=== PATIENT | male | born 1940 | race Caucasian/White ===

== ENCOUNTER → 2018-02-03 08:18 | Outpatient (CLI) | payer MEDICARE, OTHER, SELFPAY ==
--- NOTE | 2018-02-03 08:38 | XR_ITS ---
XR cervical spine 5V COMPARISON: None HISTORY: Generalized neck pain TECHNIQUE: AP lateral and oblique views and odontoid view FINDINGS: There is normal curvature and alignment. C1-C7 appear intact. There is mild disc space narrowing at C5-6 and C6-7 levels. There is mild to moderate neural foraminal narrowing at the C5-6 and C6-7 levels bilaterally secondary to spurring of the uncinate joints. The prevertebral soft tissues are normal and the odontoid is normal. IMPRESSION: Mild degenerative disc disease C5-6 and C6-7 with mild to moderate bilateral neural foraminal narrowing at these levels
[2018-02-03 09:49] LABS: Alanine Aminotransferase 17 U/L (12-78); Albumin Level 3.9 gm/dL (3.4-5.0); Albumin/Globulin Ratio 1.3 (1.1-1.8); Alkaline Phosphatase 52 U/L (46-116); Anion Gap 13.4 mEq/L (5-15); Aspartate Amino Transferase 12 U/L (15-37); Bilirubin,Total 0.6 mg/dL (0.2-1.0); Blood Urea Nitrogen 18 mg/dL (7-18); Calcium 9.4 mg/dL (8.5-10.1); Carbon Dioxide 28 mmol/L (21.0-32.0); Chloride 107 mmol/L (98-107); Chol/HDL Ratio 2.7 (1-3.5); Cholesterol 127 mg/dL (140-200); Creatinine,Serum 1.32 mg/dL (0.70-1.30); Estimated Glomerular Filt Rate 53 ml/min (>60); Free T4 (Free Thyroxine) 1.13 ng/dl (0.76-1.46); GFR (African American) 64 ML/MIN (>60); Globulin 2.9 gm/dl (1.3-3.2); Glucose 102 mg/dL (74-106); HDL Cholesterol 47 mg/dL (27-67); LDL Cholesterol 71 mg/dL (0-130); Potassium 4.4 mmoL/L (3.5-5.1); Sodium 144 mmol/L (136-145); Thyroid Stimulating Hormone 1.13 uIU/ml (0.358-3.740); Total Protein,Serum 6.8 gm/dL (6.4-8.2); Triglycerides 44 mg/dL (30-200); VLDL Cholesterol 9 mg/dL (0-40)
[2018-02-04 06:41] LABS: Creatinine, Urine 91.7 mg/dL (Not Estab.); Microalbumin, Urine <3.0 ug/mL (Not Estab.)
== END ==
PROVIDERS: PCP Family Medicine; Visit Provider Family Medicine
DX: E78.5 Hyperlipidemia, unspecified (principal); E03.9 Hypothyroidism, unspecified; I10 Essential (primary) hypertension; M53.82 Other specified dorsopathies, cervical region
CPT/HCPCS: 36415; 72050; 80053; 80061; 82043; 82570; 84439; 84443

== ENCOUNTER → 2018-02-15 13:33 | Outpatient (CLI) | payer MEDICARE, OTHER, SELFPAY ==
--- NOTE | 2018-02-15 13:38 | CA_ITS ---
PROCEDURE: 2-D M-mode and color Doppler study INDICATIONS FOR THE TEST: Chest pain COPD Heart Murmur Tobacco Smoking Palpitations Fatigue Syncope Edema Hypertension + Diabetes Mellitus Rheumatic Fever SOB+MCGOWAN Obesity Hyperlipidemia+ Family History HD Additional History DIZZINESS,CAD, CABG, STENTS PATIENT INFORMATION HEIGHT:68 WEIGHT:206 GENDER: Male B/P:129/62 2-D/M-MODE INTERPRETATION: 2-D MEASUREMENTS OBSERVED VALUES IN CMS Right Ventricular Dimension (RVDd) 3.1 Interventricular Septum (Thickness)(IVsd) 1.7 Left Ventricular Internal Dimensions(LVIDd) 4.7 Left Ventricular Posterior Wall (Thickness)(LVPWd) 1.3 Aortic Root 3.5 Aortic Cusp Separation 2.2 Left Atrial Dimensions (LAD) 4.1 2D 1. Left atrium is mildly enlarged, left ventricle is normal size, mild concentric left ventricular hypertrophy, visually estimated ejection fraction 55% with no obvious regional wall motion abnormality. 2. The right atrium and right ventricle are mildly enlarged with normal contractility. 3. The aortic valve is minimally thickened and fibrosed. 4. The mitral and tricuspid valve leaflets are minimally thickened. 5. The pulmonic valve is poorly visualized. 6. No significant pericardial effusion noted. DOPPLER INTERROGATION: Doppler interrogation of the aortic, mitral and tricuspid valvular presence of mild mitral and tricuspid regurgitation, tricuspid regurgitant jet velocity insufficient for acquisition of the right ventricular systolic pressure, grade 1 diastolic dysfunction seen with tissue Doppler evidence of raised left atrial pressure. CONCLUSION: 1. Mildly enlarged left atrium, normal left ventricular size, mild concentric left ventricular hypertrophy, visually estimated ejection fraction 55% with no obvious regional wall motion abnormality, grade 1 diastolic dysfunction seen with tissue Doppler evidence of raised left atrial pressure. 2. Mildly enlarged right ventricle with normal contractility. 3. Mild mitral and tricuspid regurgitation 4. No significant pericardial effusion noted.
== END ==
PROVIDERS: Family Provider Otolaryngology; PCP Family Medicine; Visit Provider Internal Medicine
DX: R94.31 Abnormal electrocardiogram [ECG] [EKG] (principal); I25.10 Atherosclerotic heart disease of native coronary artery without angina pectoris; I11.9 Hypertensive heart disease without heart failure; R42 Dizziness and giddiness; E78.5 Hyperlipidemia, unspecified
CPT/HCPCS: 93306

== ENCOUNTER → 2018-05-09 14:25 | Outpatient (POV) | payer MEDICARE, OTHER, SELFPAY | PROVIDERS: Family Provider Otolaryngology; PCP Family Medicine | DX: Z00.00 Encounter for general adult medical examination without abnormal findings (principal) ==

== ENCOUNTER → 2019-05-15 13:34 | Outpatient (CLI) | payer MEDICARE, SELFPAY ==
--- NOTE | 2019-05-15 13:37 | CA_ITS ---
APPROVED REPORT [facility] Nurse: WALTER Laterality: Bilateral Study Quality: Good Indications: Dizziness and Vertigo Risk Factors Hypertension: Doppler Spectral Velocity Analysis ECA (R) 134.00/9.84 cm/s ECA (L) 94.60/8.46 cm/s dICA (R) 97.70/21.10 cm/s dICA (L) 90.90/23.30 cm/s Veronica (R) 96.20/20.40 cm/s Veronica (L) 93.40/25.20 cm/s pICA (R) 98.40/20.40 cm/s pICA (L) 113.00/20.00 cm/s dCCA (R) 87.50/17.80 cm/s dCCA (L) 88.20/18.50 cm/s pCCA (R) 62.80/13.50 cm/s pCCA (L) 78.30/15.00 cm/s Vert (R) 41.50/8.43 cm/s Vert (L) 50.70/11.60 cm/s ICA/CCA 1.12 ICA/CCA 1.28 Findings Duplex evaluation demonstrates stenosis of the left proximal internal carotid artery in the range of 20-49% with PSV <140 cm/sec, EDV <100 cm/sec, and IC/CC Ratio <4.0.Duplex evaluation demonstrates stenosis of the right proximal internal carotid artery <20% with PSV <140 cm/sec, EDV <100 cm/sec, and IC/CC Ratio <4.0. Antegrade flow seen bilateral vertebral arteries. <Conclusion> Duplex evaluation demonstrates stenosis of the left proximal internal carotid artery in the range of 20-49% with PSV <140 cm/sec, EDV <100 cm/sec, and IC/CC Ratio <4.0.Duplex evaluation demonstrates stenosis of the right proximal internal carotid artery <20% with PSV <140 cm/sec, EDV <100 cm/sec, and IC/CC Ratio <4.0. Duplex evaluation demonstrates stenosis of the left proximal internal carotid artery in the range of 20-49% with PSV <140 cm/sec, EDV <100 cm/sec, and IC/CC Ratio <4.0.Duplex evaluation demonstrates stenosis of the right proximal internal carotid artery <20% with PSV <140 cm/sec, EDV <100 cm/sec, and IC/CC Ratio <4.0. Electronically signed by : Tyron Mireles MD 05/16/2019 07:51:25
== END ==
PROVIDERS: PCP Family Medicine; Visit Provider Urology
DX: R42 Dizziness and giddiness; I65.23 Occlusion and stenosis of bilateral carotid arteries
CPT/HCPCS: 93880

== ENCOUNTER → 2020-03-18 08:40 | Outpatient (CLI) | payer MEDICARE, SELFPAY | PROVIDERS: PCP Family Medicine; Visit Provider Urology | DX: I50.9 Heart failure, unspecified (principal); R94.31 Abnormal electrocardiogram [ECG] [EKG]; R42 Dizziness and giddiness | CPT/HCPCS: 93306 ==

== ENCOUNTER 2020-04-05 13:23 | Observation (INO) | payer MEDICARE, SELFPAY ==
[2020-04-05] VITALS (13 sets, daily range): BP systolic 83–140; BP diastolic 49–70; PULSE 90–113; RESP 16–94; TEMP 36.9–38.5; O2SAT 92–98; BMI 31.6; BMI 31.1
--- NOTE | 2020-04-05 13:52 | XR_ITS ---
PROCEDURE: XR CHEST PORTABLE CLINICAL HISTORY: fever Fever and chills COMPARISON: CXR CHEST(2 VIEWS-NOT PORTABLE) from 12/08/2016 CXR CHEST(2 VIEWS-NOT PORTABLE) from 02/03/2017 XR CHEST PORTABLE from 08/31/2019 FINDINGS: Prior CABG. Normal heart size. The lungs are clear without infiltrates, suspicious nodules, or pleural effusions. No acute bony abnormalities. IMPRESSION: No acute findings. Dictated by: Tyron Mireles MD 04/06/2020 08:11 Electronically signed by Tyron Mireles MD in [place] 04/06/2020 08:11
[2020-04-05 14:33] LABS: Basophils % 0.3 % (0.1-2.0); Eosinophils # 0.1 K/mm3 (0.0-0.4); Eosinophils % 0.8 % (0.1-12.0); Hematocrit 37.8 % (42.0-52.0); Lymphocytes # 0.4 K/mm3 (0.7-4.5); Lymphocytes % 4.6 % (10-50); Mean Corpuscular HGB Conc 34.5 g/dL (31.8-35.4); Mean Corpuscular Hemoglobin 33.9 pg (27.0-31.2); Mean Corpuscular Volume 98.2 fl (80-94); Mean Platelet Volume 7.5 fl (7.4-10.4); Monocytes # 0.4 K/mm3 (0.1-1.0); Monocytes % 4.9 % (1.7-9.3); Neutrophils # 7.6 K/mm3 (1.8-7.8); Neutrophils % 89.3 % (37.0-80.0); Platelet Count 235 K/mm3 (142-424); Red Blood Count 3.85 M/mm3 (4.60-6.20); Red Cell Distribution Width 13.9 % (11.5-17.5); White Blood Count 8.5 K/mm3 (4.8-10.8)
[2020-04-05 14:36] LABS: MANUAL DIFFERENTIAL MANUAL DIFFERENTIAL (MANUAL DIFF)
[2020-04-05 14:39] LABS: Alanine Aminotransferase 11 U/L (12-78); Albumin Level 4.2 g/dl (3.5-5.0); Albumin/Globulin Ratio 1.4 (1.1-1.8); Alkaline Phosphatase 78 U/L (38-126); Anion Gap 12.9 mEq/L (5-15); Aspartate Amino Transferase 25 U/L (17-59); Bilirubin,Total 0.5 mg/dl (0.2-1.3); Blood Urea Nitrogen 25 mg/dl (9-20); Calcium 8.9 mg/dl (8.4-10.2); Carbon Dioxide 27 mmol/L (22.0-30.0); Chloride 98 mmol/L (98-107); Creatinine Clearance Estimated 52 mL/min (50-200); Estimated Glomerular Filt Rate 45 ml/min (>60); GFR (African American) 55 ML/MIN (>60); Globulin 2.9 g/dL (1.3-3.2); Glucose 133 mg/dl (74-100); Potassium 3.9 mmoL/L (3.5-5.1); Sodium 134 mmol/L (136-145); Total Protein,Serum 7.1 g/dl (6.3-8.2)
[2020-04-05 14:41] LABS: Lactic Acid 1.1 mmol/L (0.7-2.1)
[2020-04-05 14:47] LABS: Lymphocytes % 5 % (10-50); Monocytes % 1 % (2-9); Neutrophils % 92 % (42-76); Platelet Estimate Normal; RBC Morphology Normal; Total Cells Counted 100
[2020-04-05 14:48] LABS: NT Pro Brain Natriuretic Pep. 157 pg/mL (0-450)
--- NOTE | 2020-04-05 15:01 | CT_ITS ---
PROCEDURE: CT CHEST WO CON CLINICAL INDICATION: weakness Heart disease, weakness and fever COMPARISON: CT ABDOMEN PELVIS W CON from 08/31/2019 TECHNIQUE: Axial images obtained with sagittal and coronal reformats. All CT scans at the facility use one or more dose reduction, viz: automated exposure control, ma/kV adjustment per patient size (including targeted exams where dose is matched to indication, i.e. head), or iterative reconstruction technique. FINDINGS: HEART AND MEDIASTINAL STRUCTURES: Prior CABG. No mediastinal or hilar adenopathy. Coronary artery calcifications and/or stents noted LUNGS AND PLEURAL SPACES: Patchy density in the right middle lobe consistent with atelectasis or infiltrate. The atelectatic or fibrotic changes in the lung bases. There is a 14 x 8 nodular opacity in the left lower lobe with some cavitation superiorly. There is some nodularity noted in the right apex possibly due to scarring/fibrotic change. BONY STRUCTURES: Degenerative changes thoracic spine with ankylosis of the midthoracic spine. UPPER ABDOMEN: On the most inferior image there is a 1.9 cm area of soft tissue attenuation along the anterior aspect of the head of the pancreas. This is nonspecific and incompletely imaged. CT with pancreatic protocol may provide further evaluation if clinically warranted. ADDITIONAL FINDINGS: No other significant abnormalities. IMPRESSION: 1. Atelectasis or infiltrate in the right middle lobe 2. Nodular changes in the right apex possibly due to prior granulomatous exposure 3. 14 x 8 mm nodular opacity in the left lower lobe with some cavitation superiorly. Suggest follow-up exam in 3 months without and with contrast. 4. 1.9 cm soft tissue density along the anterior aspect of the head of the pancreas. Repeat exam with pancreatic protocol may provide further evaluation Dictated by: Tyron Mireles MD 04/06/2020 10:14 Electronically signed by Tyron Mireles MD in [place] 04/06/2020 10:14
[2020-04-05 16:06] LABS: Microscopic, Urine URINE MICROSCOPIC (MICROSCOPIC)
[2020-04-05 16:07] LABS: Appearance,Urine CLOUDY (Clear); Bilirubin,Urine Negative (Negative); Blood, Urine 3+ (Negative); Color,Urine YELLOW (Yellow); Glucose,Urine (UA) Negative (Negative); Ketones,Urine Negative (Negative); Leukocyte Esterase,Urine 2+ (Negative); Nitrate,Urine Negative (Negative); PH,Urine 5.5 (5.0-8.5); Protein,Urine TRACE (Negative); Urobilinogen,Urine 0.2 EU/dl (0.2)
[2020-04-05 16:17] LABS: Amorphous Sediment,Urine 2+ /lpf; RBC,Urine 20-50 #/hpf (0-3); Squamous Epithelial Cell,Urine Occasional #/hpf (0-5); WBC,Urine 20-50 #/hpf (0-3)
--- NOTE | 2020-04-05 16:30 | PC.NURSE ---
tobacco sieve operator paging dr. levin who is extrusion die template maker for dr. anton
--- NOTE | 2020-04-05 16:36 | PC.NURSE ---
called house for a bed pneumonia ollie ulrich
--- NOTE | 2020-04-05 16:37 | HMH.EDWEAK ---
ED Disposition Clinical Impression: Dehydration, Right middle lobe pneumonia Disposition: Admitted as Observation Condition on Discharge: Good Instructions: Pneumonia-Adult Referrals: Alfa Ramirez MD [Primary Care Provider] - - Critical Care Critical Care Time: No Attestation: On 04/05/20, the high probability of a clinically significant, sudden or life threatening deterioration of the following system(s) required my full and direct attention, intervention and personal management. The time I documented below is in addition to time spent performing reported procedures but includes the following listed in this critical care notation. Medical Decision Making - Medical Records Medical records reviewed: Yes: I reviewed the patient's medical records. - Amado Inquiry Pt receiving controlled substance: No Vital Signs: 04/05/20 13:24 04/05/20 15:07 04/05/20 15:32 Temperature 101.3 F H Temperature Source Oral Pulse Rate [Radial] 113 H 97 H 100 H Respiratory Rate 18 94 H 16 Blood Pressure [Right Arm] 135/69 83/49 L 105/57 L Blood Pressure Mean [Right Arm] 91 60 73 Blood Pressure Source [Right Arm] Automatic Cuff Automatic Cuff Blood Pressure Position [Right Arm] Sitting Supine Supine 02 Sat by Pulse Oximetry 98 98 93 L Oxygen Delivery Method Room Air Room Air Room Air 04/05/20 16:01 Temperature Temperature Source Pulse Rate [Radial] 97 H Respiratory Rate 18 Blood Pressure [Right Arm] 100/52 L Blood Pressure Mean [Right Arm] 68 Blood Pressure Source [Right Arm] Automatic Cuff Blood Pressure Position [Right Arm] Supine 02 Sat by Pulse Oximetry 93 L Oxygen Delivery Method Room Air - Lab Data Lab results reviewed: Yes: I reviewed the patient's lab results. Lab Results 04/05/20 14:20: WBC 8.5, RBC 3.85 L, Hgb 13.0 L, Hct 37.8 L, MCV 98.2 H, MCH 33.9 H, MCHC 34.5, RDW 13.9, Plt Count 235, MPV 7.5, Neut % (Auto) 89.3 H, Lymph % (Auto) 4.6 L, [place] % (Auto) 4.9, Eos % (Auto) 0.8, Baso % (Auto) 0.3, Neut # (Auto) 7.6, Lymph # (Auto) 0.4 L, [place] # (Auto) 0.4, Eos # (Auto) 0.1, Baso # (Auto) 0.0, Total Counted 100, Neutrophils % (Manual) 92 H, Band Neutrophils % 1.0, Lymphocytes % (Manual) 5 L, Monocytes % (Manual) 1 L, Metamyelocytes % 1.0, Platelet Estimate Normal, RBC Morphology Normal 04/05/20 14:20: Sodium 134 L, Potassium 3.9, Chloride 98, Carbon Dioxide 27, Anion Gap 12.9, BUN 25 H, Creatinine 1.50 H, Estimated Creat Clear 52, Estimated GFR 45 L, Est GFR ( Amer) 55 L, Glucose 133 H, Calcium 8.9, Total Bilirubin 0.5, AST 25, ALT 11 L, Alkaline Phosphatase 78, Total Protein 7.1, Albumin 4.2, Globulin 2.9, Albumin/Globulin Ratio 1.4 04/05/20 14:20: Lactate 1.1 04/05/20 14:20: NT-Pro-B Natriuret Pep 157 04/05/20 16:03: Urine Color Yellow, Urine Appearance Cloudy, Urine pH 5.5, Ur Specific [place] 1.020, Urine Protein Trace, Urine Glucose (UA) Negative, Urine Ketones Negative, Urine Blood 3+, Urine Nitrate Negative, Urine Bilirubin Negative, Urine Urobilinogen 0.2, Ur Leukocyte Esterase 2+ A, Urine RBC 20-50, Urine WBC 20-50, Ur Squamous Epith Cells Occasional, Amorphous Sediment 2+, Urine Bacteria None Result diagrams: 04/05/20 14:20 04/05/20 14:20 Orders (Tests/Meds): ED MEDICATIONS Generic Name Dose Route Start Last Admin Trade Name Freq PRN Reason Stop Dose Admin Ceftriaxone Sodium 1 gm/ 50 mls @ 100 mls/hr 04/05/20 16:30 Sodium Chloride IV 04/19/20 16:29 Q24H RENNY Protocol Discontinued Medications Generic Name Dose Route Start Last Admin Trade Name Freq PRN Reason Stop Dose Admin Sodium Chloride 1,000 mls @ 999 mls/hr 04/05/20 15:15 Sod Chlor 0.9% 1000ml Bag IV 04/05/20 16:15 .Q1H1M RENNY ORDERS Category Date Time Status CT chest wo con Stat Cat Scan 04/05/20 15:01 Taken XR chest portable Stat Exams 04/05/20 13:52 Taken SARS-CoV-2, DIEGO Stat Lab 04/05/20 15:50 Received Blood Culture Stat Micro 04/05/20 14:20 Received Urine Culture Stat
--- NOTE | 2020-04-05 16:38 | PC.NURSE ---
lab called to say that the covid test would 75 mins to complete in house
[2020-04-05 17:08] LABS: Adenovirus,PCR Not Detected (NotDetected); Bordetella Pertussis Not Detected (NotDetected); Chlamydophila Pneumoniae, PCR Not Detected (NotDetected); Coronavirus 19, PCR Not Detected (NotDetected); Coronavirus 229E Not Detected (NotDetected); Coronavirus NL63 Not Detected (NotDetected); Coronavirus OC43 Not Detected (NotDetected); Coronovirus HKU1,PCR Not Detected (NotDetected); Human Metapneumovirus Not Detected (NotDetected); Influenza A, PCR Not Detected (NotDetected); Influenza AH1, 2009 Not Detected (NotDetected); Influenza AH1, PCR Not Detected (NotDetected); Influenza AH3,PCR Not Detected (NotDetected); Influenza B, PCR Not Detected (NotDetected); Mycoplasma Pneumoniae, PCR Not Detected (NotDected); Parainfluenza 1, PCR Not Detected (NotDetected); Parainfluenza 2, PCR Not Detected (NotDetected); Parainfluenza 3, PCR Not Detected (NotDetected); Parainfluenza 4, PCR Not Detected (NotDetected); Respiratory Syncytial Virus Not Detected (NotDetected); Rhinovirus/Enterovirus Not Detected (NotDetected)
--- NOTE | 2020-04-05 17:35 | PC.NURSE ---
got pt another blanket
--- NOTE | 2020-04-05 17:54 | PC.NURSE ---
lab called and stated pt was - for covid called house and got room #[id number] called admissions for admit
--- NOTE | 2020-04-05 18:21 | PC.NURSE ---
report called to maren aj
--- NOTE | 2020-04-05 19:16 | HMH.HP ---
*Chief complaint: Fever and chills *History of present illness: This 79-year-old white male was admitted through the emergency room at [facility]. He started with a fever this morning and shaking chills. His temperature went to 102.7. His contacted Dr. Leary and he was brought to the emergency room. Chest x-ray there revealed a right sided pneumonia. He is admitted for further evaluation and treatment. Patient has history of coronary artery disease with coronary artery bypass in 2001 and subsequent stenting's in 2006 in 2008. The patient also reports episodic dizziness and near syncope. He did have a loop recorder placed in August [address] Romo.. [facility] History Medical History: Reports:: Coronary Artery Disease (CABG [facility] 2001. Stents placed 2006 2008.), Hyperlipidemia, Hypertension Denies:: Diabetes Mellitus Type 1, Diabetes Mellitus Type 2, Internal Pacemaker, Lung Disease, Seizures *Have you ever received a pneumonia vaccine?: Yes *Have you received a flu vaccine this season?: Yes Other Medical History: Reports: Thyroid Disease (Levothyroxine 100 mcg daily) Laterality Cases: Bilateral: Myringotomy (Ear Tubes) (1969), Other (Cervical facet arthropathy and cervical disc disease) Other Surgeries: Yes: CABG, Cardiac Catheterization, Coronary Stent, Open Heart Surgery, Other. No: Pacemaker - *Social History Last grade of school completed: High school graduate Smoking Status: Former smoker (Remote. He smoked only cigars.) Tobacco Type: cigars Alcohol Intake: never Alcohol Intake Frequency:: other Substance Use Type: denies use *Occupational Status:: previously employed ([employer], and farm work), disabled Housing: house *Travel in the last 8 weeks: None Family Hx:: Coronary Artery Disease (In his parents his siblings and his children.) Review of Systems - Constitutional Reports body ache(s), Reports chills, Reports fever(s), Reports weakness - Eyes Denies change in vision - ENT Reports hearing loss - *Cardiovascular Reports leg swelling (Nocturia), Reports lightheadedness, Reports fainting (In the past) - *Respiratory Reports cough, Reports shortness of breath (Mild ) - *Neurologic Reports dizziness, Reports weakness, Denies behavioral changes - Hematologic/Lymphatic Reports easy bruising Meds Home Medications Medication Instructions Recorded Confirmed Type aspirin 81 mg tablet,delayed 81 mg PO ONCE 12/28/17 04/05/20 History release carvedilol 6.25 mg tablet 6.25 mg PO DAILY 90 Days 12/28/17 04/05/20 History isosorbide mononitrate 30 mg 30 mg PO DAILY 90 Days 12/28/17 04/05/20 History tablet,extended release 24 hr levothyroxine 100 mcg tablet 100 mcg PO DAILY 90 Days 12/28/17 04/05/20 History nitroglycerin 0.4 mg sublingual 0.4 mg SUBLINGUAL Q5M PRN 12/28/17 04/05/20 History tablet pravastatin 40 mg tablet 40 mg PO DAILY 90 Days 12/28/17 04/05/20 History rivaroxaban 2.5 mg tablet 2.5 mg PO BID 08/14/18 04/05/20 History omeprazole 40 mg capsule,delayed 40 mg PO DAILY #90 cap 02/07/20 04/05/20 Rx release lisinopril 20 mg tablet 20 mg PO DAILY #90 tab 03/25/20 04/05/20 Rx Amlodipine Besylate [Amlodipine 10 mg PO DAILY 04/05/20 04/05/20 History 10mg Tab] Furosemide [Furosemide 20mg Tab] 20 mg PO DAILY 04/05/20 04/05/20 History Allergies Allergy/AdvReac Type Severity Reaction Status Date / Time cephalexin Allergy Unknown I-RASH Verified 03/18/20 09:20 Exam Vital signs and Labs for Last 24 Hours: Temp Pulse Resp BP Pulse Ox 99 F 95 H 18 105/65 L 97 04/05/20 18:35 04/05/20 18:35 04/05/20 18:35 04/05/20 18:35 04/05/20 17:37 Laboratory Results - last 24 hr 04/05/20 14:20: WBC 8.5, RBC 3.85 L, Hgb 13.0 L, Hct 37.8 L, MCV 98.2 H, MCH 33.9 H, MCHC 34.5, RDW 13.9, Plt Count 235, MPV 7.5, Neut % (Auto) 89.3 H, Lymph % (Auto) 4.6 L, [place] % (Auto) 4.9, Eos % (Auto) 0.8, Baso % (Auto) 0.3, Neut # (Auto) 7.6, Lymph # (Auto) 0.4 L, M
--- NOTE | 2020-04-05 19:48 | PC.NURSE ---
Pt to floor at 1840, report given to Dieudonne Baxter RN.
[2020-04-06] VITALS (10 sets, daily range): BP systolic 120–138; BP diastolic 56–65; PULSE 60–90; RESP 18–20; TEMP 36.2–37.5; O2SAT 93–97; BMI 30.9
--- NOTE | 2020-04-06 03:25 | PC.NURSE ---
kePt rested t/o this shift. Pt is A&O x4, lung sounds clear with diminished breath sounds at the bilateral bases. Pulses are equal and bounding. was at bedside at the beginning of shift and verbalized that she will be back in the morning in time for the doctor's rounds. Pt was offered shower, but refused and stated he would take it in the morning. Call light is within reach. No complaints at this time. Will continue to monitor.
[2020-04-06 05:54] LABS: Basophils % 0.3 % (0.1-2.0); Eosinophils % 0.4 % (0.1-12.0); Hematocrit 35.9 % (42.0-52.0); Hemoglobin 12.5 g/dL (14.1-18.0); Lymphocytes # 0.7 K/mm3 (0.7-4.5); Lymphocytes % 7.7 % (10-50); Mean Corpuscular HGB Conc 34.7 g/dL (31.8-35.4); Mean Corpuscular Hemoglobin 34.4 pg (27.0-31.2); Mean Corpuscular Volume 99.1 fl (80-94); Mean Platelet Volume 7.2 fl (7.4-10.4); Monocytes # 0.5 K/mm3 (0.1-1.0); Monocytes % 5.9 % (1.7-9.3); Neutrophils # 7.5 K/mm3 (1.8-7.8); Neutrophils % 85.7 % (37.0-80.0); Platelet Count 197 K/mm3 (142-424); Red Blood Count 3.62 M/mm3 (4.60-6.20); Red Cell Distribution Width 14.1 % (11.5-17.5); White Blood Count 8.8 K/mm3 (4.8-10.8)
[2020-04-06 05:59] LABS: MANUAL DIFFERENTIAL MANUAL DIFFERENTIAL (MANUAL DIFF)
[2020-04-06 06:10] LABS: Lymphocytes % 5 % (10-50); Monocytes % 1 % (2-9); Neutrophils % 87 % (42-76); Platelet Estimate Normal; RBC Morphology Normal; Total Cells Counted 100
[2020-04-06 06:13] LABS: Chloride 103 mmol/L (98-107); Potassium 3.9 mmoL/L (3.5-5.1); Sodium 137 mmol/L (136-145)
[2020-04-06 06:16] LABS: Alanine Aminotransferase 21 U/L (12-78); Albumin Level 3.4 g/dl (3.5-5.0); Albumin/Globulin Ratio 1.2 (1.1-1.8); Alkaline Phosphatase 60 U/L (38-126); Anion Gap 11.9 mEq/L (5-15); Aspartate Amino Transferase 34 U/L (17-59); Bilirubin,Total 0.4 mg/dl (0.2-1.3); Blood Urea Nitrogen 21 mg/dl (9-20); Carbon Dioxide 26 mmol/L (22.0-30.0); Creatinine Clearance Estimated 54 mL/min (50-200); Estimated Glomerular Filt Rate 49 ml/min (>60); GFR (African American) 59 ML/MIN (>60); Globulin 2.8 g/dL (1.3-3.2); Total Protein,Serum 6.2 g/dl (6.3-8.2)
[2020-04-06 06:17] LABS: Calcium 8.3 mg/dl (8.4-10.2); Glucose 127 mg/dl (74-100)
--- NOTE | 2020-04-06 07:26 | P.CONPHA_ITS ---
[facility] Pharmacy VTE Monitoring - Patient Demographics Admission date: 04/05/20 Report Date: 04/06/20 Time: 07:26 Allergies/Adverse Reactions: Patient Allergies cephalexin Allergy (Unknown, Verified 03/18/20 09:20) I-RASH Height: 1.7 m Weight: 89.6 kg Patient Problems: Current Active Problems Dehydration (Acute) Right middle lobe pneumonia (Acute) Fever (Acute) Fever and chills (Acute) Hypothyroidism (acquired) (Acute) - VTE Risk Labs: VTE Related Lab Results Hgb 12.5 g/dL (14.1-18.0) L 04/06/20 05:37 Hct 35.9 % (42.0-52.0) L 04/06/20 05:37 Plt Count 197 K/mm3 (142-424) 04/06/20 05:37 BUN 21 mg/dl (9-20) H 04/06/20 05:37 Creatinine 1.40 mg/dl (0.66-1.25) H 04/06/20 05:37 Estimated Creat Clear 54 mL/min (50-200) 04/06/20 05:37 Clinical Trial Participant: No - Prophylaxis VTE Prophylaxis Ordered?: Yes Types of VTE Prophylaxis: TEDS Knee High
--- NOTE | 2020-04-06 08:16 | HMH.ACPN2 ---
<Kesha Wyman - Last Filed: 04/06/20 08:16> Internal Medicine - PN: Subj *Date: 04/06/20 *Time: 08:16 Interval history: States his made him come. He denies shortness of breath and chest pain. He does have a nonproductive cough. He is eating without problems. Temp is 99.5 this a.m. O2 satisfactory on room air. BUN and creatinine have improved slightly to 21/1.4. Urine culture reveals gram-negative rods with colony count greater than 100,000.Patient is currently on Rocephin and Zithromax. Exam Vital signs and Labs for Last 24 Hours: Temp Pulse Resp BP Pulse Ox 99.5 F 89 20 134/63 94 L 04/06/20 04:00 04/06/20 04:00 04/06/20 04:00 04/06/20 04:00 04/06/20 04:00 Laboratory Results - last 24 hr 04/05/20 14:20: WBC 8.5, RBC 3.85 L, Hgb 13.0 L, Hct 37.8 L, MCV 98.2 H, MCH 33.9 H, MCHC 34.5, RDW 13.9, Plt Count 235, MPV 7.5, Neut % (Auto) 89.3 H, Lymph % (Auto) 4.6 L, [place] % (Auto) 4.9, Eos % (Auto) 0.8, Baso % (Auto) 0.3, Neut # (Auto) 7.6, Lymph # (Auto) 0.4 L, [place] # (Auto) 0.4, Eos # (Auto) 0.1, Baso # (Auto) 0.0, Total Counted 100, Neutrophils % (Manual) 92 H, Band Neutrophils % 1.0, Lymphocytes % (Manual) 5 L, Monocytes % (Manual) 1 L, Metamyelocytes % 1.0, Platelet Estimate Normal, RBC Morphology Normal 04/05/20 14:20: Sodium 134 L, Potassium 3.9, Chloride 98, Carbon Dioxide 27, Anion Gap 12.9, BUN 25 H, Creatinine 1.50 H, Estimated Creat Clear 52, Estimated GFR 45 L, Est GFR ( Amer) 55 L, Glucose 133 H, Calcium 8.9, Total Bilirubin 0.5, AST 25, ALT 11 L, Alkaline Phosphatase 78, Total Protein 7.1, Albumin 4.2, Globulin 2.9, Albumin/Globulin Ratio 1.4 04/05/20 14:20: Lactate 1.1 04/05/20 14:20: NT-Pro-B Natriuret Pep 157 04/05/20 15:50: Chlamy pneumoniae PCR Not detected, Adenovirus (PCR) Not detected, B. pertussis DNA (PCR) Not detected, Coronavirus OC43 (PCR) Not detected, Coronavirus HKU1 (PCR) Not detected, Coronavirus 229E (PCR) Not detected, COVID-19 PCR Not detected, Coronavirus NL63 (PCR) Not detected, Human Metapneumovir PCR Not detected, Influenza A (H1) PCR Not detected, Influ A (H1N1/09) PCR Not detected, Influenza A (H3) PCR Not detected, Influenza Type A (PCR) Not detected, Influenza Type B (PCR) Not detected, M. pneumoniae (PCR) Not detected, Parainfluenza 1 (PCR) Not detected, Parainfluenza 2 (PCR) Not detected, Parainfluenza 3 (PCR) Not detected, Parainfluenza 4 (PCR) Not detected, RSV (PCR) Not detected, Entero/Rhino (PCR) Not detected 04/05/20 16:03: Urine Color Yellow, Urine Appearance Cloudy, Urine pH 5.5, Ur Specific [place] 1.020, Urine Protein Trace, Urine Glucose (UA) Negative, Urine Ketones Negative, Urine Blood 3+, Urine Nitrate Negative, Urine Bilirubin Negative, Urine Urobilinogen 0.2, Ur Leukocyte Esterase 2+ A, Urine RBC 20-50, Urine WBC 20-50, Ur Squamous Epith Cells Occasional, Amorphous Sediment 2+, Urine Bacteria None 04/06/20 05:37: WBC 8.8, RBC 3.62 L, Hgb 12.5 L, Hct 35.9 L, MCV 99.1 H, MCH 34.4 H, MCHC 34.7, RDW 14.1, Plt Count 197, MPV 7.2 L, Neut % (Auto) 85.7 H, Lymph % (Auto) 7.7 L, [place] % (Auto) 5.9, Eos % (Auto) 0.4, Baso % (Auto) 0.3, Neut # (Auto) 7.5, Lymph # (Auto) 0.7, [place] # (Auto) 0.5, Eos # (Auto) 0.0, Baso # (Auto) 0.0, Total Counted 100, Neutrophils % (Manual) 87 H, Band Neutrophils % 7.0, Lymphocytes % (Manual) 5 L, Monocytes % (Manual) 1 L, Platelet Estimate Normal, RBC Morphology Normal 04/06/20 05:37: Sodium 137, Potassium 3.9, Chloride 103, Carbon Dioxide 26, Anion Gap 11.9, BUN 21 H, Creatinine 1.40 H, Estimated Creat Clear 54, Estimated GFR 49 L, Est GFR ( Amer) 59, Glucose 127 H, Calcium 8.3 L, Total Bilirubin 0.4, AST 34 D, ALT 21 D, Alkaline Phosphatase 60, Total Protein 6.2 L, Albumin 3.4 L D, Globulin 2.8, Albumin/Globulin Ratio 1.2 I & O for Last 24 hours: Intake & Output 04/03/20 04/04/20 04/05/20 04/06/20 11:59 11:59 11:59 11:59 Intake Total 1229 / 1229 Balance 1229 / 1229 Weight 197 lb 8.547 oz Microbiology Reports for the
--- NOTE | 2020-04-06 08:43 | HMH.PHAINT ---
MEDICATION RECONCILIATION COMPLETED USING EXTERNAL FILL HISTORY AND LIST FROM PHYSICIAN'S OFFICE.
--- NOTE | 2020-04-06 16:05 | PC.NURSE ---
Pt has been pleasant and cooperative this shift. A&O X4. No complaints of pain or SOA. Assessment reveals that lung sounds are diminished and non-pitting edema is noted to bilateral hands/lower extremities. Telemetry reveals NSR and pt is on room air with sats. >93%. Pt ambulates independently back/forth to the bathroom and throughout the room. SHOAIB hose and non-skid socks in place to BLE. Pt received a shower this shift and has sat up in the chair for the majority of the day. Pt reports 1 BM this shift and no trouble urinating. Appetite and PO intake are good and pt eats majority of most meals. 20 G peripheral IV in the RT AC is patent and infusing NS @ 75 ML/HR. VSS. Call light within reach. Will continue to monitor.
[2020-04-06 18:12] LABS: Basophils % 0.4 % (0.1-2.0); Eosinophils # 0.1 K/mm3 (0.0-0.4); Eosinophils % 2.3 % (0.1-12.0); Hematocrit 35.8 % (42.0-52.0); Hemoglobin 12.1 g/dL (14.1-18.0); Lymphocytes # 1.3 K/mm3 (0.7-4.5); Lymphocytes % 20.7 % (10-50); Mean Corpuscular HGB Conc 33.9 g/dL (31.8-35.4); Mean Corpuscular Hemoglobin 34.3 pg (27.0-31.2); Mean Corpuscular Volume 101.3 fl (80-94); Mean Platelet Volume 7.5 fl (7.4-10.4); Monocytes # 0.4 K/mm3 (0.1-1.0); Monocytes % 6.7 % (1.7-9.3); Neutrophils # 4.3 K/mm3 (1.8-7.8); Neutrophils % 69.9 % (37.0-80.0); Platelet Count 173 K/mm3 (142-424); Red Blood Count 3.53 M/mm3 (4.60-6.20); Red Cell Distribution Width 14.2 % (11.5-17.5); White Blood Count 6.2 K/mm3 (4.8-10.8)
[2020-04-06 18:21] LABS: Chloride 105 mmol/L (98-107)
[2020-04-06 18:22] LABS: Sodium 136 mmol/L (136-145)
[2020-04-06 18:25] LABS: Blood Urea Nitrogen 20 mg/dl (9-20); Calcium 8.2 mg/dl (8.4-10.2); Carbon Dioxide 26 mmol/L (22.0-30.0); Creatinine Clearance Estimated 58 mL/min (50-200); Estimated Glomerular Filt Rate 53 ml/min (>60); GFR (African American) 64 ML/MIN (>60); Glucose 153 mg/dl (74-100)
--- NOTE | 2020-04-06 19:09 | PC.NURSE ---
report given to lee
--- NOTE | 2020-04-06 20:30 | PC.NURSE ---
RT administered 3% hypertonic to get sputum sample, pt still unable to cough up sputum. Cup left at bedside in case he does during the night
[2020-04-07] VITALS: BP 131/68; PULSE 78; RESP 20; TEMP 36.7; O2SAT 93
--- NOTE | 2020-04-07 03:10 | PC.NURSE ---
A&OX4. PT HAS TOLERATED RA WELL T/O SHIFT WITH 02 SAT >93%. PT UP AMBULATING INDEPENDENTLY TO BATHROOM T/O SHIFT WITHOUT DIFFICULTY. PT HAS HAD NO C/O SOA OR PAIN THIS SHIFT. PT RESTING IN BED WITH EYES CLOSED MAJORITY OF SHIFT. NO COMPLAINTS THUS FAR, VSS WILL CONTINUE TO MONITOR.
[2020-04-07 04:00] VITALS: BP 127/58; PULSE 82; RESP 14; TEMP 36.9; O2SAT 93
[2020-04-07 04:30] VITALS: BMI 31.3
[2020-04-07 05:49] VITALS: PULSE 80
[2020-04-07 08:00] VITALS: BP 107/86; PULSE 115; RESP 18; TEMP 36.6; O2SAT 91
--- NOTE | 2020-04-07 08:21 | HMH.ACPN2 ---
<Kesha Wyman - Last Filed: 04/07/20 08:21> Internal Medicine - PN: Subj *Date: 04/07/20 *Time: 08:21 Interval history: Slept better last night. Denies shortness of breath and chest pain. He has a dry cough as per his usual. He had a good day yesterday. He has been up and down and sitting in the chair without problems. He is voiding QS and has had a bowel movement. He eats very well. Urine culture reveals E. coli with pansensitivity Exam Vital signs and Labs for Last 24 Hours: Temp Pulse Resp BP Pulse Ox 98.4 F 80 14 127/58 L 93 L 04/07/20 04:00 04/07/20 05:49 04/07/20 04:00 04/07/20 04:00 04/07/20 04:00 Laboratory Results - last 24 hr 04/06/20 18:00: WBC 6.2 D, RBC 3.53 L, Hgb 12.1 L, Hct 35.8 L, MCV 101.3 H, MCH 34.3 H, MCHC 33.9, RDW 14.2, Plt Count 173, MPV 7.5, Neut % (Auto) 69.9, Lymph % (Auto) 20.7, [place] % (Auto) 6.7, Eos % (Auto) 2.3, Baso % (Auto) 0.4, Neut # (Auto) 4.3, Lymph # (Auto) 1.3, [place] # (Auto) 0.4, Eos # (Auto) 0.1, Baso # (Auto) 0.0 04/06/20 18:00: Sodium 136, Potassium 4.0, Chloride 105, Carbon Dioxide 26, Anion Gap 9.0, BUN 20, Creatinine 1.30 H, Estimated Creat Clear 58, Estimated GFR 53 L, Est GFR ( Amer) 64, Glucose 153 H D, Calcium 8.2 L I & O for Last 24 hours: Intake & Output 04/04/20 04/05/20 04/06/20 04/07/20 11:59 11:59 11:59 11:59 Intake Total 1589 / 1589 2140 / 2140 Balance 1589 / 1589 2140 / 2140 Weight 197 lb 8.547 oz 199 lb 9 oz Microbiology Reports for the Last 24 Hours: Microbiology 04/05/20 16:03 Urine,Clean Catch Urine Culture - Final Escherichia coli - Constitutional no acute distress Comments: Sitting in comfort chair at bedside. Appears comfortable - *Routine Respiratory Exam Comments: Few left basilar crackles. Decreased breath sounds in right upper lobe. - *Routine Cardiovascular Exam Present: RRR - *Routine Abdominal Exam Present: soft, normoactive bowel sounds. Absent: tenderness, distended - *Routine Extremities Exam Present: SHOAIB stockings. Absent: edema, calf tenderness - *Routine Neurological Exam Present: alert, oriented X3 Assessment and Plan (1) Right middle lobe pneumonia Current visit: Yes Status: Acute Category: Medical Code(s): J18.9 - Pneumonia, unspecified organism (2) Fever and chills Current visit: Yes Status: Acute Category: Medical Code(s): R50.9 - Fever, unspecified (3) Hypothyroidism (acquired) Current visit: Yes Status: Acute Category: Medical Code(s): E03.9 - Hypothyroidism, unspecified (4) Coronary arteriosclerosis Current visit: No Status: Chronic Category: Medical Code(s): I25.10 - Atherosclerotic heart disease of [place] coronary artery without angina pectoris (5) Dizziness Current visit: No Status: Chronic Category: Medical Code(s): R42 - Dizziness and giddiness (6) History of coronary artery bypass graft Current visit: No Status: Chronic Category: Surgical Code(s): Z95.1 - Presence of aortocoronary bypass graft (7) Severe sepsis Current visit: Yes Status: Acute Category: Medical Code(s): A41.9 - Sepsis, unspecified organism; R65.20 - Severe sepsis without septic shock (8) UTI (urinary tract infection) Current visit: Yes Status: Acute Category: Medical Code(s): N39.0 - Urinary tract infection, site not specified (9) E. coli UTI Current visit: Yes Status: Acute Category: Medical Code(s): N39.0 - Urinary tract infection, site not specified; B96.20 - Unspecified Escherichia coli [E. coli] as the cause of diseases classified elsewhere - Assessment and plan all Dx Assessment and Plan for all problems:: Patient is ready for discharge. See discharge orders <Alfa Ramirez - Last Filed: 04/07/20 08:40> Internal Medicine - PN: Subj *Date: 04/07/20 *Time: 08:39 Exam Vital signs and Labs for Last 24 Hours: Temp Pulse Resp BP Pulse Ox 98.4 F
--- NOTE | 2020-04-08 08:36 | HMH.DCSUM ---
General - General Admission date:: 04/05/20 Discharge date: 04/07/20 HPI HPI: This 79-year-old white male was admitted through the emergency room at [facility]. He started with a fever this morning and shaking chills. His temperature went to 102.7. His contacted Dr. Leary and he was brought to the emergency room. Chest x-ray there revealed a right sided pneumonia. He is admitted for further evaluation and treatment. Patient has history of coronary artery disease with coronary artery bypass in 2001 and subsequent stenting's in 2006 in 2008. The patient also reports episodic dizziness and near syncope. He did have a loop recorder placed in [place] [address] Romo.. Hospital Course Hospital Course: The patient's chest x-ray showed nothing acute. His chest CT showed atelectasis versus infiltrate in the right middle lobe. There was also a 14 x 8 mm nodular opacity in the left lower lobe with some cavitation superiorly. Radiology suggested a follow-up exam in 3 months with and without contrast. There was also 1.9 cm soft tissue density along the anterior aspect of the head of the pancreas and they felt a repeat exam with pancreatic protocol would provide further evaluation. The patient was admitted and started on IV antibiotics and placed on a child monitor. His PCR respiratory panel and COVID test were negative. His fever improved and his oxygen was satisfactory on room air. He initially had some renal insufficiency, but this improved as well. His urine culture revealed gram-negative rods and he was continued on Zithromax and Rocephin for his pneumonia and possible UTI. He was also started on duo nebs. He began feeling better and denied any shortness of breath or chest pain. He was able to get up and down and sit in the chair without problems. His urine culture revealed E. coli with ramirez sensitivity. He was stable to be discharged with a prescription for Zithromax and cefdinir and will follow-up with Dr. Ramirez in a week. Objective Vital signs: Temp Pulse Resp BP Pulse Ox 97.9 F 115 H 18 107/86 L 91 L 04/07/20 08:00 04/07/20 08:00 04/07/20 08:00 04/07/20 08:00 04/07/20 08:00 Narrative: - Constitutional no acute distress - *Routine HEENT Exam Head: Present: normocephalic Eye: Present: PERRL ENT: Present: mucous membranes moist - *Routine Neck Exam Absent: carotid bruit - *Routine Respiratory Exam Present: CTA bilaterally - *Routine Cardiovascular Exam Present: tachycardia (110) - *Routine Abdominal Exam Present: soft. Absent: tenderness - *Routine Extremities Exam Present: edema (2+ bilaterally) - *Routine Neurological Exam Present: alert, oriented X3. Absent: motor deficit, altered mental status Results Labs on day of discharge: Preliminary micro results at discharge 04/05/20 14:20 Blood Culture - Preliminary Blood NO GROWTH AFTER 48 HOURS 04/05/20 14:20 Blood Culture - Preliminary Blood NO GROWTH AFTER 48 HOURS DS: Diagnosis - Discharge Diagnosis (1) Right middle lobe pneumonia Status: Acute (2) Fever and chills Status: Acute (3) Hypothyroidism (acquired) Status: Acute (4) Coronary arteriosclerosis Status: Chronic (5) Dizziness Status: Chronic (6) History of coronary artery bypass graft Status: Chronic (7) Severe sepsis Status: Acute (8) UTI (urinary tract infection) Status: Acute (9) E. coli UTI Status: Acute Discharge Plan - Patient Discharge Instructions ACTIVITY: Continue current activity DIET: continue same diet Additional Instructions: ACTIVITY TOLERATED Patient Instructions: DI for Pneumonia -- Adult, DI for Urinary Tract Infection (UTI) - Follow up Plan Follow up with: Alfa Ramirez MD [Primary Care Provider] - 04/14/20 10:15 am Disposition: Home, Self-Senior Living Medications: Home Medications Medication Instructions Recorded Confi
== END 2020-04-07 09:16 | disposition home or self-care (01) ==
LOC: ER 16:47 → 2ND 20:00
PROVIDERS: Admitting Provider Family Medicine; Emergency Provider Family Medicine; PCP Family Medicine; Visit Provider Family Medicine
DX: J18.9 Pneumonia, unspecified organism (principal); N39.0 Urinary tract infection, site not specified; I10 Essential (primary) hypertension; E78.5 Hyperlipidemia, unspecified; Z95.1 Presence of aortocoronary bypass graft; Z95.5 Presence of coronary angioplasty implant and graft; E03.9 Hypothyroidism, unspecified; Z87.891 Personal history of nicotine dependence; Z79.01 Long term (current) use of anticoagulants; Z79.899 Other long term (current) drug therapy; R06.9 Unspecified abnormalities of breathing; B96.20 Unspecified Escherichia coli [E. coli] as the cause of diseases classified elsewhere
CPT/HCPCS: 36415; 71045; 71250; 80048; 80053; 81001; 83605; 83880; 85007; 85025; 87040; 87086; 87088; 87186; 87581; 87633; 87798; 94640; 96365; 96367; 99285; G0378; J0456

== ENCOUNTER → 2020-04-14 11:11 | Outpatient (CLI) | payer MEDICARE, SELFPAY ==
--- NOTE | 2020-04-14 11:18 | XR_ITS ---
PROCEDURE: XR CHEST 2V CLINICAL HISTORY: PNEUMONIA OF R MIDDLE LOBE DUE TO INFECTIOUS ORGANISM COMPARISON: CXR CHEST(2 VIEWS-NOT PORTABLE) from 02/03/2017 XR CHEST PORTABLE from 08/31/2019 XR CHEST PORTABLE from 04/05/2020 CT CHEST WO CON from 04/05/2020 FINDINGS: Prior CABG. COPD. No lobar consolidation or collapse. Ankylosis of the thoracic spine. IMPRESSION: COPD. Otherwise negative. The patchy area of infiltrate in the right middle lobe may be below limits of resolution as seen on the recent CT scan or could be due to improvement Dictated by: Tyron Mireles MD 04/14/2020 15:19 Electronically signed by Tyron Mireles MD in [place] 04/14/2020 15:19
== END ==
PROVIDERS: PCP Family Medicine; Visit Provider Family Medicine
DX: J18.9 Pneumonia, unspecified organism (principal)
CPT/HCPCS: 71046

== ENCOUNTER → 2020-05-11 08:42 | Outpatient (CLI) | payer MEDICARE, SELFPAY ==
--- NOTE | 2020-05-11 08:49 | CA_ITS ---
APPROVED REPORT Volunteer Coordinator: KARLA Laterality: Bilateral Study Quality: Excellent Indications: PJ,DIZZINESS,HTN,HLP Doppler Spectral Velocity Analysis dICA (R) 102.20/33.80 cm/s dICA (L) 119.60/25.90 cm/s Veronica (R) 86.70/21.90 cm/s Veronica (L) 103.10/21.90 cm/s pICA (R) 112.40/26.40 cm/s pICA (L) 110.40/22.10 cm/s dCCA (R) 101.90/25.00 cm/s dCCA (L) 105.50/18.20 cm/s pCCA (R) 74.90/17.10 cm/s pCCA (L) 105.40/20.50 cm/s Vert (R) 47.40/3.90 cm/s Vert (L) 97.60/14.60 cm/s ICA/CCA 1.10 ICA/CCA 1.10 Findings Duplex evaluation demonstrates stenosis of the right proximal internal carotid artery <20% with PSV <140 cm/sec, EDV <100 cm/sec, and IC/CC Ratio <4.0.Duplex evaluation demonstrates stenosis of the left proximal internal carotid artery <20% with PSV <140 cm/sec, EDV <100 cm/sec, and IC/CC Ratio <4.0.Antegrade flow seen bilateral vertebral arteries. Conclusion Duplex evaluation demonstrates stenosis of the right proximal internal carotid artery <20% with PSV <140 cm/sec, EDV <100 cm/sec, and IC/CC Ratio <4.0.Duplex evaluation demonstrates stenosis of the left proximal internal carotid artery <20% with PSV <140 cm/sec, EDV <100 cm/sec, and IC/CC Ratio <4.0.Antegrade flow seen bilateral vertebral arteries. Electronically signed by : Tyron Mireles MD 05/11/2020 16:06:37
== END ==
PROVIDERS: PCP Family Medicine; Visit Provider Urology
DX: E78.2 Mixed hyperlipidemia (principal); I11.9 Hypertensive heart disease without heart failure; I25.10 Atherosclerotic heart disease of native coronary artery without angina pectoris; I34.0 Nonrheumatic mitral (valve) insufficiency; I65.23 Occlusion and stenosis of bilateral carotid arteries; R06.09 Other forms of dyspnea; Z95.1 Presence of aortocoronary bypass graft
CPT/HCPCS: 93880

== ENCOUNTER 2021-02-09 05:45 | Observation (INO) | payer MEDICARE, SELFPAY ==
[2021-02-09] VITALS (29 sets, daily range): BP systolic 98–154; BP diastolic 46–94; PULSE 70–100; RESP 16–22; TEMP 36.2–37.7; O2SAT 92–99; BMI 29.2; BMI 30.7
--- NOTE | 2021-02-09 | IR_ITS ---
APPROVED REPORT Patient Location: Inpatient Gate Person: ABDULKADIR Diego RT (R) PROCEDURES Left heart catheterization Left ventriculogram Selective coronary angiogram Informed consent was obtained prior to the procedure. COMPLICATIONS None Estimated Blood Loss: Less than 10 mls TECHNIQUE One percent lidocaine used to anesthetize the right anterior aspect of the wrist. The right radial artery was accessed via the Seldinger technique. A 6 [place] sheath was placed in the right radial artery. 2.5 mg of verapamil, 800 mcg of nitroglycerin, 1mg Lidocaine and 5000 U Heparin were given through the arterial sheath. The Poppa catheter and multipurpose catheter were also used to perform left heart catheterization, left ventriculogram and selective coronary angiogram. At the end of the procedure the sheath was removed good hemostasis was achieved using Traclet band, patient was transferred to the postop holding area in stable condition. ANGIOGRAPHIC RESULTS The left main artery Has a smooth ostial 20% stenosis The left anterior descending artery Has a stent in the proximal segment which is widely patent free of in-stent restenosis with excellent proximal distal transitioning the mid LAD has a 30% stenosis. The circumflex artery Is a nondominant yet still moderate sized vessel with proximal and mid vessel 20 to 30% stenoses The right coronary artery Is a dominant vessel with stents in the ostial proximal segment which extends through the mid segment. The ostial segment has mild 10 to 20% in-stent restenosis with remaining aspects of the stent being widely patent with minimal in-stent restenosis The HIGH ventriculogram reveals Preserved at 55% The left ventricular end-diastolic pressure 10 mmHg IMPRESSION Widely patent coronary arteries as described above Preserved ejection fraction Normal left ventricular diastolic pressure PLAN 1. Medical management for coronary disease 2. Of interest patient appears to have low blood pressure at this time. Perhaps the hypotension is contributing to patient's symptoms 3. Continue risk factor modification Electronically signed by : Elliott Romo, 02/09/2021 13:51:35
--- NOTE | 2021-02-09 05:36 | ECG_ITS ---
APPROVED REPORT Exam: Resting ECG HR:73 bpm ECG Measurements Heart Rate 73 AXES VA 202 P 15 QRSd 90 QRS 17 QT 404 T 51 QTc 445 Conclusion Normal sinus rhythm Normal ECG Electronically signed by : Malachi Leon, 02/10/2021 22:20:17
--- NOTE | 2021-02-09 05:58 | XR_ITS ---
PROCEDURE INFORMATION: Exam: XR Chest Exam date and time: 02/09/2021 5:58 AM Age: 80 years old Clinical indication: Type not specified; Patient HX: Chest pain this am; Additional info: Cp TECHNIQUE: Imaging protocol: XR of the chest. Views: 1 view. COMPARISON: CR XR CHEST 2V 04/14/2020 11:23 AM FINDINGS: Lungs: Right lung base granuloma is noted. Pleural spaces: Unremarkable. No pleural effusion. No pneumothorax. Heart/Mediastinum: Unremarkable. No cardiomegaly. Status post median sternotomy. Bones/joints: Unremarkable. IMPRESSION: No acute cardio pulmonary disease noted.
[2021-02-09 06:11] LABS: Basophils # 0.1 K/mm3 (0-0.2); Basophils % 0.6 % (0.1-2.0); Eosinophils # 0.3 K/mm3 (0.0-0.4); Eosinophils % 4.1 % (0.1-12.0); Hematocrit 39.5 % (42.0-52.0); Hemoglobin 13.3 g/dL (14.1-18.0); Lymphocytes # 1.8 K/mm3 (0.7-4.5); Lymphocytes % 21.4 % (10-50); Mean Corpuscular HGB Conc 33.7 g/dL (31.8-35.4); Mean Corpuscular Hemoglobin 33.2 pg (27.0-31.2); Mean Corpuscular Volume 98.7 fl (80-94); Mean Platelet Volume 7.3 fl (7.4-10.4); Monocytes # 0.6 K/mm3 (0.1-1.0); Monocytes % 7.3 % (1.7-9.3); Neutrophils # 5.5 K/mm3 (1.8-7.8); Neutrophils % 66.7 % (37.0-80.0); Platelet Count 270 K/mm3 (142-424); Red Cell Distribution Width 14.1 % (11.5-17.5); White Blood Count 8.2 K/mm3 (4.8-10.8)
[2021-02-09 06:15] LABS: Alanine Aminotransferase 11 U/L (12-78); Albumin Level 3.9 g/dl (3.5-5.0); Alkaline Phosphatase 76 U/L (38-126); Anion Gap 8.8 mEq/L (5-15); Aspartate Amino Transferase 27 U/L (17-59); Bilirubin,Direct 0.3 mg/dl (0.0-0.4); Bilirubin,Indirect 0.1 mg/dL (0.0-0.9); Bilirubin,Total 0.4 mg/dl (0.2-1.3); Bilirubin,Unconjugated 0.2 mg/dL (0.0-1.1); Blood Urea Nitrogen 21 mg/dl (9-20); Carbon Dioxide 29 mmol/L (22.0-30.0); Chloride 106 mmol/L (98-107); Creatinine Clearance Estimated 45 mL/min (50-200); Estimated Glomerular Filt Rate 39 ml/min (>60); GFR (African American) 47 ML/MIN (>60); Glucose 134 mg/dl (74-100); Potassium 3.8 mmoL/L (3.5-5.1); Sodium 140 mmol/L (136-145); Total Protein,Serum 6.7 g/dl (6.3-8.2)
[2021-02-09 06:21] LABS: C-Reactive Protein 7.2 mg/L (0-4)
--- NOTE | 2021-02-09 06:22 | HMH.EDCP ---
ED Disposition Clinical Impression: Unstable angina pectoris, Hypothyroidism (acquired), History of coronary artery bypass graft, Chronic renal insufficiency, stage IV (severe) CAD (coronary artery disease) Qualifiers: Coronary Disease-Associated Artery/Lesion type: [place] artery [place] vs. transplanted heart: sam[place] heart Associated angina: with unstable angina Qualified Code(s): I25.110 - Atherosclerotic heart disease of [place] coronary artery with unstable angina pectoris Disposition: Admitted As Inpatient Condition on Discharge: Good Referrals: Alfa Ramirez MD [Primary Care Provider] - - Critical Care Critical Care Time: No Attestation: On 02/09/21, the high probability of a clinically significant, sudden or life threatening deterioration of the following system(s) required my full and direct attention, intervention and personal management. The time I documented below is in addition to time spent performing reported procedures but includes the following listed in this critical care notation. Medical Decision Making - Medical Records Medical records reviewed: Yes: I reviewed the patient's medical records. - [place] Inquiry Pt receiving controlled substance: No Vital Signs: 02/09/21 05:42 Temperature 97.7 F Temperature Source Oral Pulse Rate [Right Brachial] 70 Respiratory Rate 17 Blood Pressure [Right Arm] 146/64 H Blood Pressure Mean [Right Arm] 91 Blood Pressure Source [Right Arm] Automatic Cuff Blood Pressure Position [Right Arm] Sitting 02 Sat by Pulse Oximetry 98 Oxygen Delivery Method Room Air - Lab Data Lab results reviewed: Yes: I reviewed the patient's lab results. Lab Results 02/09/21 05:15: WBC 8.2, RBC 4.00 L, Hgb 13.3 L, Hct 39.5 L, MCV 98.7 H, MCH 33.2 H, MCHC 33.7, RDW 14.1, Plt Count 270, MPV 7.3 L, Neut % (Auto) 66.7, Lymph % (Auto) 21.4, [place] % (Auto) 7.3, Eos % (Auto) 4.1, Baso % (Auto) 0.6, Neut # (Auto) 5.5, Lymph # (Auto) 1.8, [place] # (Auto) 0.6, Eos # (Auto) 0.3, Baso # (Auto) 0.1 02/09/21 05:15: Sodium 140, Potassium 3.8, Chloride 106, Carbon Dioxide 29, Anion Gap 8.8, BUN 21 H, Creatinine 1.70 H, Estimated Creat Clear 45, Estimated GFR 39 L, Est GFR ( Amer) 47 L, Glucose 134 H, Calcium 9.0, Total Bilirubin 0.4, Direct Bilirubin 0.3, Conjugated Bilirubin 0.0, Indirect Bilirubin 0.1, Unconjugated Bilirubin 0.2, AST 27, ALT 11 L, Alkaline Phosphatase 76, Troponin I < 0.01, C-Reactive Protein 7.2 H, Total Protein 6.7, Albumin 3.9 02/09/21 05:15: Procalcitonin 0.073 02/09/21 05:15: NT-Pro-B Natriuret Pep 161, Thyroxine (T4) 9.3 Result diagrams: 02/09/21 05:15 02/09/21 05:15 Orders (Tests/Meds): ED MEDICATIONS Discontinued Medications Generic Name Dose Route Start Last Admin Trade Name Freq PRN Reason Stop Dose Admin Nitroglycerin 1 gm 02/09/21 06:10 02/09/21 06:11 Nitroglycerin 1 Gm Ointment TD 02/09/21 06:11 1 gm ONCE ONE Administration ORDERS Category Date Time Status Brain Natriuretic Peptide Stat Lab 02/09/21 05:15 Results Covid-19 Nasal PCR ([facility]) Routine Lab 02/09/21 06:10 Received Erythrocyte Sedimentation Rate Stat Lab 02/09/21 05:15 Received T4 (Thyroxine) Stat Lab 02/09/21 05:15 Results Thyroid Stimulating Hormone Stat Lab 02/09/21 05:15 Results Troponin I Q3H Lab 02/09/21 09:00 Ordered Troponin I Q3H Lab 02/09/21 12:00 Ordered - Radiology Data #1 Image(s): Chest Image Reviewed: Yes I reviewed the patient's radiology image Preliminary Findings: Normal/NAD - ECG Data Tracing #1 Normal Sinus Rhythm: Yes Ischemic changes: non-specific ST-T wave changes - Physician Consults Physician Consulted: ollie Reason -: Admission Medical Decision Narrative: pt with known heart dis and has acute onset of angina Chest Pain HPI - General Chief Complaint: Chest Pain Stated Complaint: chest pain Time Seen by Provider: 02/09/21 05:45 Mode of Arrival: EMS Source of Information: Patient, EMS, Medical Recor
[2021-02-09 06:32] LABS: Troponin I < 0.01 ng/ml (0.00-0.034)
[2021-02-09 06:33] LABS: NT Pro Brain Natriuretic Pep. 161 pg/mL (0-450)
[2021-02-09 06:37] LABS: Procalcitonin 0.073 ng/mL (0.0-2.0)
[2021-02-09 06:41] LABS: T4 (Thyroxine) 9.3 ug/dl (5.53-11.0)
--- NOTE | 2021-02-09 06:48 | INFXCTL.NOTE ---
CALLED FOR BED ASSIGNMENT.SPOKE WITH [facility]. NO BEDS AVAILABLE. PT TO BOARD IN ED. AWARE. CALLED ECHO AND NOTIFIED OF ECHO ORDER
[2021-02-09 06:55] LABS: Thyroid Stimulating Hormone 4.95 uIU/mL (0.465-4.68)
[2021-02-09 06:58] LABS: Erythrocyte Sedimentation Rate 23 mm/hr (0-20)
--- NOTE | 2021-02-09 07:05 | CA_ITS ---
APPROVED REPORT EXAM: Comprehensive 2D, Doppler, and color-flow Echocardiogram Marketing Reporting Analyst: Caren Gonzalez RT(R) Ht: 5 ft 8 in Wt: 203lbs BSA: 2.06 BP: 146/64 mmHg Indications: CP, HTN, hyperlipidemia, family history of HD, angina, hx of CABG 2001, CAD, stents 2006, 2008 2D Dimensions Aortic Root 2.09 cm M: 3.1 - 3.7 M-Mode Dimensions RVDd 2.18 cm (0.9-2.6) LA Diam 3.50 cm (1.9-4.0) LVDd 5.92 cm (3.5-5.7) Ao Diam 3.54 cm (2.0-3.7) LVDs 4.94 cm (3.5-5.7) IVSd 1.02 cm (0.6-1.1) PWd 0.85 cm (0.6-1.1) EF (Teich) 34.10% FS 16.60% EDV (Teich) 174.60 mL ESV (Teich) 115.00 mL LV Diastology E Decel Time 210.00 (160-240 msec) E/A Ratio 0.7 MED E' 8.90 (< 7 cm/sec) E'/MED E' Ratio 8.97 (>14) LAT E' 8.10 (<10 cm/sec) E/LAT E' Ratio 9.85 (>14) Mitral Valve MV E Max Otto. 80.00 (40-130 cm/s) MV A Velocity 108.00 (40-130 cm/s) E/A Ratio 0.74 MV Decel. Time 210.00 (160-240 ms) MV PHT 62.00 ms Left Ventricle Left atrium is normal size, left ventricle is normal size, mild concentric left ventricular hypertrophy, visually estimated ejection fraction 55% with no regional wall motion abnormality, grade 1 diastolic dysfunction seen without tissue Doppler evidence of raise left atrial pressure. Right Ventricle Right atrium and right ventricle are normal size and contractility. Aortic Valve Aortic valve is minimally thickened and fibrosed, there is no aortic stenosis or aortic insufficiency. Mitral Valve Mitral valve is grossly normal, there is mild mitral regurgitation. Tricuspid Valve Tricuspid grossly normal, there is mild tricuspid regurgitation, tricuspid regurgitation jet velocity is inadequate for calculation of the right ventricular systolic pressure. Pulmonic Valve Pulmonic valve is poorly visualized. Great Vessels Aortic root is normal size Pericardium No significant pericardial effusion noted. Conclusion 1. Mildly enlarged left atrium, normal left ventricular size, mild concentric left ventricular hypertrophy, visually estimated ejection fraction 55% with no regional wall motion abnormality, grade 1 diastolic dysfunction seen without tissue Doppler evidence of raise left atrial pressure. 2. Mild mitral and tricuspid regurgitation. 3. No significant pericardial effusion noted. Electronically signed by : David Gaines, 02/09/2021 19:33:33
--- NOTE | 2021-02-09 07:16 | PC.NURSE ---
KUSH AT BEDSIDE FOR ECHO.
--- NOTE | 2021-02-09 08:03 | PC.NURSE ---
notified keenan javier with cardiology that pt has a consult on pt ( spoke with second floor wardrobe consultant)
--- NOTE | 2021-02-09 08:50 | PC.NURSE ---
Kesha Carrasquillo here to see pt
--- NOTE | 2021-02-09 08:59 | PC.NURSE ---
Dr Ramirez here to see pt.
--- NOTE | 2021-02-09 09:05 | PC.NURSE ---
Dr. Ramirez at
--- NOTE | 2021-02-09 09:16 | PC.NURSE ---
LEANDRO PHAM AT BEDSIDE.
--- NOTE | 2021-02-09 09:26 | HMH.HP ---
*Admission Date: 02/09/21 <Kesha Wyman - 02/09/21 09:49> *Chief complaint: chest pain <Kesha Wyman - 02/09/21 09:49> *History of present illness: Mr. Dickerson is an 80-year-old patient with a history of coronary artery disease, hypertension, hypothyroidism, hyperlipidemia, diverticulosis, cervical disc disease, hypertensive heart disease, and dizziness who presented to [facility] emergency room this a.m. after awakening with chest pain about 3:00 AM. He states it awakened him from his sleep, radiates down his left arm, and was associated with some nausea. He describes the pain as just being a pain. He did take a nitroglycerin at home with partial relief. He also received another nitroglycerin plus an aspirin in the ambulance and paste was applied to his chest wall in the emergency room. The pain has improved but is not completely resolved. He describes working on his deck yesterday and spraining a solution on it. He did not have any chest pain yesterday and was not short of breath. He is followed by Dr. Romo with last visit being November 2020. At time of this exam chest pain is present but much improved. His biggest complaint is that he is cold. Laboratory data thus far show a hemoglobin of 13.3 and hematocrit of 39.5 with white blood cell count of 8200. Blood chemistries show normal electrolytes, BUN 21, creatinine 1.7; liver function studies are normal. Initial troponin I is 0.01. BNP is normal at 161. C-reactive protein is slightly elevated at 7.2 with a procalcitonin normal at 0.073. Chest x-ray reveals no acute cardiopulmonary disease. Echocardiogram has been ordered. Patient is to be admitted when Covid test results are final and bed available. Cardiology has been consulted. <Kesha Wyman - 02/09/21 09:49> [facility] [place] History Medical History: Reports:: Atherosclerotic Heart Disease, Coronary Artery Disease (CABG [facility] 2001. Stents placed 2006 2008.), Gastroesophageal Reflux Disease(GERD), Hyperlipidemia, Hypertension Denies:: Cancer, Diabetes Mellitus Type 1, Diabetes Mellitus Type 2, Internal Pacemaker, Lung Disease, MRSA, Seizures <Kesha Wyman - 02/09/21 09:49> *Have you ever received a pneumonia vaccine?: No <Kesha Wyman 02/09/21 09:49> *Have you received a flu vaccine this season?: No <Kesha Wyman 02/09/21 09:49> Other Medical History: Reports: Arthritis, Cataracts (right eye), Hypothyroidism, Sinus Problems, Thyroid Disease (Levothyroxine 100 mcg daily) <Kesha Wyman 02/09/21 09:49> Laterality Cases: Right: Cataract, Bilateral: Myringotomy (Ear Tubes) (1969), Other (Cervical facet arthropathy and cervical disc disease) <Kesha Wyman 02/09/21 09:49> Other Surgeries: Yes: CABG, Cardiac Catheterization, Cardiac Surgery, Coronary Stent, EGD, Open Heart Surgery, Other. No: Pacemaker <Kesha Wyman 02/09/21 09:49> Amputation: No <Kesha Wyman 02/09/21 09:49> - *Social History Smoking Status: Former smoker <Kesha Wyman 02/09/21 09:49> Tobacco Type: cigars <Kesha Wyman 02/09/21 09:49> Alcohol Intake: never <Kesha Wyman 02/09/21 09:49> Alcohol Intake Frequency:: other <Kesha Wyamn 02/09/21 09:49> Substance Use Type: denies use <Kesha Wyman 02/09/21 09:49> *Occupational Status:: previously employed, disabled <Kesha Wyman 02/09/21 09:49> Housing: house <Kesha Wyman 02/09/21 09:49> Household Members: significant other <Kesha Wyman 02/09/21 09:49> *Travel in the last 8 weeks: None <Kesha Wyman 02/09/21 09:49> Family Hx:: Coronary Artery Disease (In his parents his siblings and his children.) <Kesha Wyman 02/09/21 09:49> Review of Systems - Constitutional Reports headache(s), Denies fever(s) <Kesha Wyman 02/09/21 09:49> - Eyes Denies change in vision <Kesha Wyamn 02/09/21 09:49> - ENT Reports dizziness, Denies ear pain, Denies sore throat <Kesha Wyman - 02/09/21 09:49> - *Cardiovascular Reports chest
--- NOTE | 2021-02-09 09:29 | HMH.CNCARD ---
History of Present Illness Consult date: 02/09/21 Requesting physician: Alfa Ramirez Consult reason: chest pain Chief complaint: chest pain Additional Medical History:: 1. CAD A. Stenting, B. CABG, 2001 C. 4 stents since 2001 with last one in 2007, Dr. Emi Rosen Abnormal Stress test, 03/2015, nontransmural infarction inferiorly and anteriorly with reversible distribution. EF normal. E. Left heart catheterization, 2014, ANGIOGRAPHIC RESULTS: 1. The left main artery is normal 2. The left anterior descending artery has a stent in the proximal segment which is widely patent with minimal in-stent restenosis. Distally there are mild luminal irregularities with no competitive flow from the left internal mammary artery 3. The circumflex artery is a nondominant vessel and has mild nonflow limiting disease 4. The right coronary artery is a dominant vessel and has stents in the ostial proximal mid segment with mild in-stent restenosis. Distally the vessel has mild luminal irregularities. 5. There is no competitive flow from any of the vein grafts 6. 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 The HIGH ventriculogram reveals normal ejection fraction estimated at 65% 8. The left ventricular end-diastolic pressure less than 10 mmHg IMPRESSION: 1. Saxman three-vessel coronary artery disease with stents in all 3 vessels which are widely patent 2. Occluded saphenous vein graft and left internal mammary artery 3. Normal ejection fraction 4. Normal left ventricular end-diastolic pressure 2. Hypertension, controlled. A. Echocardiogram, 08/2020, normal LV size and function with no significant valvular heart disease. 3. Hyperlipidemia, on statin. 4. Syncopal episode, 08/23/2015 A. History of syncope, about 2009 with evaluation in ER without etiology or follow up per patient. B. ILR placed 2014 and then removed in 2017 with no recurrent syncope C. Carotid ultrasound, less than 20% bilaterally, 05/2020 5. Hypothyroidism, on supplement. History of present illness: chest pain that woke him up from sleep approx 30 mins prior to arrival, denies dyspnea, denies nausea. took 1 dose of nitro captain's assistant which eased his pain from a 9 to a 7; received 1 additional dose of nitro sl from [facility] and 325 asa which helped his pain ease down to a 5 ludmila 1-10 scale. pt states his history includes open heart surgery in 2001, stents in 2006. denies radiation of pain at time of triage The above per Dr. Norris, ER Patient states chest pain is currently about a 4 and still describes it as a substernal heaviness or pressure type sensation. He denies any recent exertional chest pain. Initial troponin is normal and EKG is sinus rhythm with no acute ST segment changes. Patient is a non-smoker and nondiabetic. [facility] History Medical History: Reports:: Atherosclerotic Heart Disease, Coronary Artery Disease (CABG [facility] 2001. Stents placed 2006 2008.), Hyperlipidemia, Hypertension Denies:: Cancer, Diabetes Mellitus Type 1, Diabetes Mellitus Type 2, Internal Pacemaker, Lung Disease, MRSA, Seizures *Have you ever received a pneumonia vaccine?: No *Have you received a flu vaccine this season?: No Other Medical History: Reports: Arthritis, Cataracts (right eye), Sinus Problems, Thyroid Disease (Levothyroxine 100 mcg daily) Laterality Cases: Bilateral: Myringotomy (Ear Tubes) (1969), Other (Cervical facet arthropathy and cervical disc disease) Other Surgeries: Yes: CABG, Cardiac Catheterization, Cardiac Surgery, Coronary Stent, Open Heart Surgery, Other. No: Pacemaker Amputation: No - *Social History Smoking Status: Former smoker Tobacco Type: cigars Alcohol Intake: never Alcohol Intake Frequency:: other Substance Use Type: denies use *Occupational Status:: previously employed, disabled Housing: house Household Members: significant other *Travel in the last 8 weeks: Inside the [place] Family Hx:: Godinez
--- NOTE | 2021-02-09 09:29 | PC.NURSE ---
SECOND TROPONIN DRAWN AND SET TO LAB THAT WAS DUE AT 0900.
[2021-02-09 09:51] LABS: Troponin I < 0.01 ng/ml (0.00-0.034)
--- NOTE | 2021-02-09 10:10 | PC.NURSE ---
CONSENT SIGNED FOR HEART CATH PER HEART CATH REQUEST
--- NOTE | 2021-02-09 12:00 | PC.NURSE ---
GEOLOGICAL ENGINEERING TEACHER INFORMED NATALIE MANZANO THEY WILL COME GET PT AND THEY ARE AWARE PT HAS A BED
--- NOTE | 2021-02-09 12:42 | PC.NURSE ---
report given to Stewart Brewer RN on second floor states pt is going to the botany laboratory assistant prior to coming to second floor. will continue to monitor pt.
--- NOTE | 2021-02-09 12:58 | PC.NURSE ---
report given to madai figueroa pt transported to chemistry laboratory technician via stretcher per madai figueroa
[2021-02-09 13:00] LABS: Troponin I < 0.01 ng/ml (0.00-0.034)
--- NOTE | 2021-02-09 13:35 | P.CONPHA_ITS ---
[facility] Pharmacy VTE Monitoring - Patient Demographics Admission date: 02/09/21 Report Date: 02/09/21 Time: 13:35 Allergies/Adverse Reactions: Patient Allergies cephalexin Allergy (Unknown, Verified 12/16/20 09:09) I-RASH Height: 1.78 m Weight: 92.533 kg Patient Problems: Current Active Problems Unstable angina pectoris (Acute) Chronic renal insufficiency, stage IV (severe) (Chronic) Chest pain at rest (Acute) Dizziness (Chronic) CAD (coronary artery disease) (Chronic) Hypothyroidism (acquired) (Chronic) History of coronary artery bypass graft (Chronic) Hypertensive heart disease without heart failure (Chronic) Hyperlipidemia (Chronic) - VTE Risk Labs: VTE Related Lab Results Hgb 13.3 g/dL (14.1-18.0) L 02/09/21 05:15 Hct 39.5 % (42.0-52.0) L 02/09/21 05:15 Plt Count 270 K/mm3 (142-424) 02/09/21 05:15 BUN 21 mg/dl (9-20) H 02/09/21 05:15 Creatinine 1.70 mg/dl (0.66-1.25) H 02/09/21 05:15 Estimated Creat Clear 45 mL/min (50-200) 02/09/21 05:15 Clinical Trial Participant: No - Prophylaxis VTE Prophylaxis Ordered?: Yes Types of VTE Prophylaxis: TEDS Knee High
--- NOTE | 2021-02-09 17:15 | PC.NURSE ---
PATIENT IS A&O X4, LUNGS ARE CLEAR, PULSES EQUAL. PATIENT HAS HAD NO COMPLAINTS OF PAIN. PATIENT ATE JELLO AND DRANK WATER WHEN HE ARRIVED TO THE FLOOR, TOLERATED WELL. NO NEW CONCERNS AT THIS TIME.
--- NOTE | 2021-02-09 23:54 | PC.NURSE ---
He is A&Ox4. He denies chest pain, shortness of breath, or dizziness. He received PRN medication for a fever 100.5. NSR on telemetry. Right radial site C/D/I. Capillary refill <3. He was educated to not put any pressure on his right arm x48 hours and not to lift >30lbs for 4 days after the initial 48 hours. He verbalizes understanding. Positive radial pulses.
[2021-02-10] VITALS: BP 108/48; PULSE 75; PULSE 79; RESP 26; TEMP 38.1; O2SAT 91
[2021-02-10 04:00] VITALS: BP 112/54; PULSE 59; PULSE 60; RESP 16; TEMP 36.8; O2SAT 94
[2021-02-10 05:51] VITALS: BMI 30.9
--- NOTE | 2021-02-10 07:37 | HMH.PHAINT ---
home medication list completed [facility] and [facility] Romo's office
[2021-02-10 07:40] LABS: Basophils % 0.3 % (0.1-2.0); Eosinophils # 0.1 K/mm3 (0.0-0.4); Eosinophils % 1.7 % (0.1-12.0); Hematocrit 34.7 % (42.0-52.0); Hemoglobin 11.6 g/dL (14.1-18.0); Lymphocytes # 1.4 K/mm3 (0.7-4.5); Lymphocytes % 19.2 % (10-50); Mean Corpuscular HGB Conc 33.3 g/dL (31.8-35.4); Mean Corpuscular Hemoglobin 33.6 pg (27.0-31.2); Mean Corpuscular Volume 100.8 fl (80-94); Mean Platelet Volume 8.3 fl (7.4-10.4); Monocytes # 0.6 K/mm3 (0.1-1.0); Monocytes % 8.2 % (1.7-9.3); Neutrophils # 5.2 K/mm3 (1.8-7.8); Neutrophils % 70.5 % (37.0-80.0); Platelet Count 196 K/mm3 (142-424); Red Blood Count 3.45 M/mm3 (4.60-6.20); Red Cell Distribution Width 14.5 % (11.5-17.5); White Blood Count 7.4 K/mm3 (4.8-10.8)
--- NOTE | 2021-02-10 07:45 | HMH.PNCARD ---
Subjective Date: 02/10/21 Time: 07:45 Principal diagnosis: Chest pain Interval history: 80-year-old white male in bed in no acute distress. Patient has eaten breakfast this morning denies any chest pain, pressure or tightness. He does relate some dizziness recently more orthostatic in nature. Family member in the room notes that sometimes his blood pressure is low at home as well. Exam Vital signs and Labs for Last 24 Hours: Temp Pulse Resp BP Pulse Ox 98.3 F 59 L 16 112/54 L 94 L 02/10/21 04:00 02/10/21 04:00 02/10/21 04:00 02/10/21 04:00 02/10/21 04:00 Laboratory Results - last 24 hr 02/09/21 09:05: Troponin I < 0.01 02/09/21 12:00: Troponin I < 0.01 02/10/21 07:27: WBC 7.4, RBC 3.45 L, Hgb 11.6 L, Hct 34.7 L, MCV 100.8 H, MCH 33.6 H, MCHC 33.3, RDW 14.5, Plt Count 196 D, MPV 8.3, Neut % (Auto) 70.5, Lymph % (Auto) 19.2, [place]houn % (Auto) 8.2, Eos % (Auto) 1.7, Baso % (Auto) 0.3, Neut # (Auto) 5.2, Lymph # (Auto) 1.4, [place]houn # (Auto) 0.6, Eos # (Auto) 0.1, Baso # (Auto) 0.0 I & O for Last 24 hours: Intake & Output 02/07/21 02/08/21 02/09/21 02/10/21 11:59 11:59 11:59 11:59 Intake Total 841 / 841 Output Total 450 / 450 Balance 391 / 391 Weight 204 lb 204 lb 5 oz Microbiology Reports for the Last 24 Hours: Microbiology 02/09/21 06:10 Nasopharyngeal Coronavirus COVID-19 PCR - Final - Constitutional no acute distress - *Routine HEENT Exam Head: Present: normocephalic Eye: Present: EOMI, PERRL ENT: Present: mucous membranes moist - *Routine Neck Exam Present: supple. Absent: lymphadenopathy - *Routine Respiratory Exam Present: CTA bilaterally - *Routine Cardiovascular Exam Present: RRR - *Routine Abdominal Exam Present: soft, normoactive bowel sounds. Absent: tenderness - *Routine Extremities Exam Absent: cyanosis, clubbing, edema - *Routine Skin Exam Present: warm. Absent: rash - *Routine Neurological Exam Present: alert, oriented X3 Progress Note: A&P (1) Chest pain at rest Status: Acute (2) History of coronary artery bypass graft Status: Chronic (3) Hyperlipidemia Status: Chronic (4) Hypertensive heart disease without heart failure Status: Chronic (5) Hypothyroidism (acquired) Status: Chronic (6) Macrocytic anemia Status: Acute (7) CKD (chronic kidney disease) stage 3, GFR 30-59 ml/min Status: Acute Assessment and Plan for All Diagnoses:: 1. Chest pain, noncardiac in nature with left heart catheterization showing patent [place] arteries with prior occlusion of all vein grafts and MICHAELS noted. 2. Borderline low blood pressure with symptoms of dizziness with standing. Will reduce Coreg to 3.125 mg twice daily, lisinopril will be reduced to 5 mg daily, continue aspirin 81 mg daily along with Xarelto 2.5 mg twice daily and pravastatin 40 mg daily. 3. CKD, stage III, stable 4. Macrocytic anemia, mild Cardiac status stable. Further noncardiac chest pain work-up per PCP. Have encouraged ambulation today with monitoring of his blood pressure. Follow-up in our office in 1 to 2 weeks.
[2021-02-10 07:46] LABS: Anion Gap 8.3 mEq/L (5-15); Blood Urea Nitrogen 22 mg/dl (9-20); Calcium 8.2 mg/dl (8.4-10.2); Carbon Dioxide 25 mmol/L (22.0-30.0); Chloride 108 mmol/L (98-107); Chol/HDL Ratio 3.2 (1-3.5); Cholesterol 99 mg/dl (140-200); Creatinine Clearance Estimated 51 mL/min (50-200); Estimated Glomerular Filt Rate 45 ml/min (>60); GFR (African American) 54 ML/MIN (>60); Glucose 109 mg/dl (74-100); HDL Cholesterol 31 mg/dl (40-60); Magnesium 1.9 mg/dl (1.6-2.3); Potassium 3.3 mmoL/L (3.5-5.1); Sodium 138 mmol/L (136-145); Triglycerides 66 mg/dl (30-150); VLDL Cholesterol 13 mg/dL (0-40)
--- NOTE | 2021-02-10 08:09 | HMH.ACPN2 ---
<Alicia Langston - Last Filed: 02/10/21 08:09> Internal Medicine - PN: Subj *Date: 02/10/21 *Time: 08:09 Interval history: Patient states he is feeling better today. He was up on the side of the bed and denies any dizziness. He states he slept well throughout the night and ate a small amount of breakfast this morning. He denies any pain. His heart cath yesterday showed widely patent coronary arteries and a preserved ejection fraction. Cardiology has seen the patient and thinks his low blood pressure may be causing the symptoms of dizziness. They reduced his Coreg to 3.125 mg twice daily and his lisinopril to 5 mg daily. Exam Vital signs and Labs for Last 24 Hours: Temp Pulse Resp BP Pulse Ox 98.3 F 59 L 16 112/54 L 94 L 02/10/21 04:00 02/10/21 04:00 02/10/21 04:00 02/10/21 04:00 02/10/21 04:00 Laboratory Results - last 24 hr 02/09/21 09:05: Troponin I < 0.01 02/09/21 12:00: Troponin I < 0.01 02/10/21 07:27: WBC 7.4, RBC 3.45 L, Hgb 11.6 L, Hct 34.7 L, MCV 100.8 H, MCH 33.6 H, MCHC 33.3, RDW 14.5, Plt Count 196 D, MPV 8.3, Neut % (Auto) 70.5, Lymph % (Auto) 19.2, [place] % (Auto) 8.2, Eos % (Auto) 1.7, Baso % (Auto) 0.3, Neut # (Auto) 5.2, Lymph # (Auto) 1.4, [place] # (Auto) 0.6, Eos # (Auto) 0.1, Baso # (Auto) 0.0 02/10/21 07:27: Sodium 138, Potassium 3.3 L, Chloride 108 H, Carbon Dioxide 25, Anion Gap 8.3, BUN 22 H, Creatinine 1.50 H, Estimated Creat Clear 51, Estimated GFR 45 L, Est GFR ( Amer) 54 L, Glucose 109 H, Calcium 8.2 L, Magnesium 1.9, Triglycerides 66, Cholesterol 99 L, LDL Cholesterol Direct 48.10 L, VLDL Cholesterol 13, HDL Cholesterol 31 L, Cholesterol/HDL Ratio 3.2 I & O for Last 24 hours: Intake & Output 02/07/21 02/08/21 02/09/21 02/10/21 11:59 11:59 11:59 11:59 Intake Total 841 / 841 Output Total 450 / 450 Balance 391 / 391 Weight 204 lb 204 lb 5 oz Microbiology Reports for the Last 24 Hours: Microbiology 02/09/21 06:10 Nasopharyngeal Coronavirus COVID-19 PCR - Final - Constitutional no acute distress - *Routine Respiratory Exam Present: CTA bilaterally - *Routine Cardiovascular Exam Present: RRR - *Routine Abdominal Exam Present: soft, normoactive bowel sounds. Absent: tenderness - *Routine Extremities Exam Absent: cyanosis, clubbing, edema - *Routine Skin Exam Present: warm. Absent: rash - *Routine Neurological Exam Present: alert, oriented X3 Assessment and Plan (1) Chest pain at rest Status: Acute Category: Medical Code(s): R07.9 - Chest pain, unspecified (2) History of coronary artery bypass graft Status: Chronic Category: Surgical Code(s): Z95.1 - Presence of aortocoronary bypass graft (3) Hyperlipidemia Status: Chronic Qualifiers: Hyperlipidemia type: mixed hyperlipidemia Qualified Code(s): E78.2 - Mixed hyperlipidemia Category: Medical Code(s): E78.5 - Hyperlipidemia, unspecified (4) Hypertensive heart disease without heart failure Status: Chronic Category: Medical Code(s): I11.9 - Hypertensive heart disease without heart failure (5) Hypothyroidism (acquired) Status: Chronic Category: Medical Code(s): E03.9 - Hypothyroidism, unspecified (6) Macrocytic anemia Status: Acute Category: Medical Code(s): D53.9 - Nutritional anemia, unspecified (7) CKD (chronic kidney disease) stage 3, GFR 30-59 ml/min Status: Acute Category: Medical Code(s): N18.30 - Chronic kidney disease, stage 3 unspecified - Assessment and plan all Dx Assessment and Plan for all problems:: Chest pain and dizziness have resolved. Cardiology has decreased patient's BP medications. Will give a one-time dose of potassium due to hypokalemia and patient is stable to be discharged home. He will follow-up with Dr. Ramirez and cardiology. <Alfa Ramirez - Last Filed: 02/10/21 08:14> Internal Medicine - PN: Subj *Date: 02/10/21 *Time: 08:13 Exam Vital signs and Labs for Last 24 Hours:
--- NOTE | 2021-02-12 12:58 | HMH.DCSUM ---
General - General Admission date:: 02/09/21 Discharge date: 02/10/21 HPI HPI: Mr. Dickerson is an 80-year-old patient with a history of coronary artery disease, hypertension, hypothyroidism, hyperlipidemia, diverticulosis, cervical disc disease, hypertensive heart disease, and dizziness who presented to [facility] emergency room this a.m. after awakening with chest pain about 3:00 AM. He states it awakened him from his sleep, radiates down his left arm, and was associated with some nausea. He describes the pain as just being a pain. He did take a nitroglycerin at home with partial relief. He also received another nitroglycerin plus an aspirin in the ambulance and paste was applied to his chest wall in the emergency room. The pain has improved but is not completely resolved. He describes working on his deck yesterday and spraying a solution on it. He did not have any chest pain yesterday and was not short of breath. He is followed by Dr. Romo with last visit being November 2020. At time of this exam chest pain is present but much improved. His biggest complaint is that he is cold. Laboratory data thus far show a hemoglobin of 13.3 and hematocrit of 39.5 with white blood cell count of 8200. Blood chemistries show normal electrolytes, BUN 21, creatinine 1.7; liver function studies are normal. Initial troponin I is 0.01. BNP is normal at 161. C-reactive protein is slightly elevated at 7.2 with a procalcitonin normal at 0.073. Chest x-ray reveals no acute cardiopulmonary disease. Echocardiogram has been ordered. Patient is to be admitted when Covid test results are final and bed available. Cardiology has been consulted. Hospital Course Hospital Course: The patient was admitted for cardiac work-up and cardiology was consulted. An echo was ordered as well. Cardiology recommended proceeding with a left heart cath and continuing patient's aspirin, beta-laila, Norvasc, nitroglycerin. Heart cath was performed and showed widely patent coronary arteries with a preserved ejection fraction. He had a normal left ventricular diastolic pressure. Cardiology recommended medical management for coronary disease. They did feel he appeared to have low blood pressure and perhaps his hypotension was contributing to his symptoms. His isosorbide was discontinued. He continued to have some dizziness more orthostatic in nature. He denied any chest pain or pressure. His blood pressure was low. Cardiology therefore decreased his Coreg to 3.125 mg twice daily and his lisinopril to 5 mg daily. They felt he could be discharged and will need to follow-up in their office in 1 to 2 weeks. He was hypokalemic, therefore he was given potassium before discharge. Objective Vital signs: Temp Pulse Resp BP Pulse Ox 98.3 F 59 L 16 112/54 L 94 L 02/10/21 04:00 02/10/21 04:00 02/10/21 04:00 02/10/21 04:00 02/10/21 04:00 Narrative: - Constitutional no acute distress <Kesha Wyman - 02/09/21 09:49> Comments: lying on stretcher in the ER; is present; states he is cold <Kesha Wyman - 02/09/21 09:49> - *Routine HEENT Exam Head: Present: normocephalic, atraumatic Eye: Present: PERRL. Absent: conjunctival icterus, scleral injection ENT: Present: mucous membranes moist, oropharynx clear - *Routine Neck Exam Present: supple. Absent: carotid bruit, lymphadenopathy, thyromegaly - Routine Chest/Breast/Axilla Exam Chest wall: Absent: tenderness - *Routine Respiratory Exam Present: CTA bilaterally (A&P) - *Routine Cardiovascular Exam Present: RRR (monitor showing SR) - *Routine Abdominal Exam Present: soft, normoactive bowel sounds. Absent: tenderness - *Routine Rectal Exam Rectal:: deferred - *Routine Genitalia Exam Genitalia:: deferred - *Routine Extremities Exam Absent: edema, calf tenderness - *Routine Skin Exam Present: dry, warm - *Routine Neurological E
== END 2021-02-10 09:30 | disposition home or self-care (01) ==
LOC: ER 06:43 → 2ND 06:50
PROVIDERS: Internal Medicine; Admitting Provider Family Medicine; Emergency Provider Emergency Medicine; PCP Family Medicine; Visit Provider Family Medicine
DX: I25.118 Atherosclerotic heart disease of native coronary artery with other forms of angina pectoris (principal); T82.855A Stenosis of coronary artery stent, initial encounter; Z79.01 Long term (current) use of anticoagulants; Z95.5 Presence of coronary angioplasty implant and graft; Z95.1 Presence of aortocoronary bypass graft; E78.5 Hyperlipidemia, unspecified; I12.9 Hypertensive chronic kidney disease with stage 1 through stage 4 chronic kidney disease, or unspecified chronic kidney disease; E03.9 Hypothyroidism, unspecified; N18.30 Chronic kidney disease, stage 3 unspecified; D53.9 Nutritional anemia, unspecified; R06.9 Unspecified abnormalities of breathing
CPT/HCPCS: 36415; 71045; 80048; 80061; 80076; 83735; 83880; 84145; 84436; 84443; 84484; 85025; 85651; 86140; 93005; 93306; 93459; 99152; 99284; C1725; C1769; G0378; J1644; Q9967; U0003

== ENCOUNTER → 2021-08-19 09:59 | Outpatient (CLI) | payer MEDICARE, SELFPAY ==
[2021-08-19 11:28] LABS: Alanine Aminotransferase 9 U/L (12-78); Albumin Level 4.2 g/dl (3.5-5.0); Alkaline Phosphatase 53 U/L (38-126); Anion Gap 11.7 mEq/L (5-15); Aspartate Amino Transferase 19 U/L (17-59); Bilirubin,Indirect 0.2 mg/dL (0.0-0.9); Bilirubin,Total 0.2 mg/dl (0.2-1.3); Bilirubin,Unconjugated 0.2 mg/dL (0.0-1.1); Blood Urea Nitrogen 21 mg/dl (9-20); Calcium 9.1 mg/dl (8.4-10.2); Carbon Dioxide 30 mmol/L (22.0-30.0); Chloride 103 mmol/L (98-107); Chol/HDL Ratio 3.4 (1-3.5); Cholesterol 133 mg/dl (140-200); Estimated Glomerular Filt Rate 45 ml/min (>60); GFR (African American) 54 ML/MIN (>60); Glucose 96 mg/dl (74-100); HDL Cholesterol 39 mg/dl (40-60); Potassium 4.7 mmoL/L (3.5-5.1); Sodium 140 mmol/L (136-145); Total Protein,Serum 6.8 g/dl (6.3-8.2); Triglycerides 116 mg/dl (30-150); VLDL Cholesterol 23 mg/dL (0-40)
[2021-08-19 11:39] LABS: Direct LDL Cholesterol 78.77 mg/dL (100-129)
== END ==
PROVIDERS: Visit Provider Urology
DX: E78.5 Hyperlipidemia, unspecified (principal); I11.9 Hypertensive heart disease without heart failure; I25.10 Atherosclerotic heart disease of native coronary artery without angina pectoris; I34.0 Nonrheumatic mitral (valve) insufficiency; I65.29 Occlusion and stenosis of unspecified carotid artery; Z95.1 Presence of aortocoronary bypass graft; R06.00 Dyspnea, unspecified; R42 Dizziness and giddiness
CPT/HCPCS: 36415; 80048; 80061; 80076

== ENCOUNTER 2023-07-08 22:35 | Emergency (ER) | payer MEDICARE, SELFPAY ==
[2023-07-08 22:36] VITALS: BP 164/70; PULSE 72; RESP 16; TEMP 36.6; O2SAT 98; BMI 30.5
--- NOTE | 2023-07-08 22:43 | HMH.EDGENADL ---
Discharge Plan Disposition Patient Disposition: Still a Patient Prescriptions Prescriptions: New sulfamethoxazole-trimethoprim 800-160 mg tablet 1 tab PO BID 7 Days Qty: 14 0RF No Action Xarelto 2.5 mg tablet 2.5 mg PO BID pravastatin 40 mg tablet 40 mg PO HS 90 Days Patient Comments: levothyroxine 100 mcg tablet 100 mcg PO DAILY 90 Days Patient Comments: aspirin [Adult Low Dose Aspirin] 81 mg tablet,delayed release (DR/EC) 81 mg PO HS carvedilol 6.25 mg tablet 6.25 mg PO BID 90 Days Qty: 90 Patient Comments: lisinopril 40 mg tablet 40 mg PO DAILY cyanocobalamin (vitamin B-12) 1,000 mcg capsule 1,000 mcg PO DAILY omeprazole 40 mg capsule,delayed release(DR/EC) See Rx Instructions .ROUTE .COMPLEX Qty: 90 1RF Dose Instruction: Take 1 capsule by mouth once daily Rx Instructions: Take 1 capsule by mouth once daily nitroglycerin 0.4 MG tablet, sublingual 0.4 mg SL Q5MINP PRN (Reason: Chest Pain) Referrals Follow up/Referrals: Provider,Referral, [Primary Care Provider] - See instructions Activity Restrictions/Add. Instructions Additional Instructions/Restrictions: Please take antibiotics as prescribed for urinary tract infection. Please follow-up with your primary care provider to have your urine retested after completion of antibiotics. Your CT scan showed an abnormality in the pancreas. This should be followed up with outpatient imaging through your primary care provider. Please follow-up with Dr. Romo for your chest pain. Clinical Impressions Clinical Impression: Chest pain, Acute UTI, Pancreatic abnormality Discharge ED Provider: José Miguel Jansen General Adult HPI <Bernardino Willett MD - Last Filed: 07/08/23 22:51> General Chief complaint: Chest Pain Stated complaint: Chest Pain Time Seen by Provider: 07/08/23 22:37 History of Present Illness HPI narrative: Patient is an 83-year-old male with a known history of coronary artery disease presents today with left-sided chest pain which began suddenly around 6:30 PM. States it was located in the left anterolateral aspect of his chest with a little bit of discomfort in the left upper quadrant. This has been nonexertional he has had no nausea associated with it no diaphoresis no radiation. States he first had a heart attack in 2001 where he had multivessel bypass surgery and most recently had a stent in 2006. States his most recent left heart cath was last year and has had no intervention since 2006. He is on Xarelto had a baby aspirin this morning. Denies any lower extremity swelling no fevers chills cough or any other symptoms at this point. States his pain is mild at the moment. Is been ongoing for about 4 hours. Related Data Home Medications Medication Instructions Recorded Confirmed aspirin 81 mg tablet,delayed 81 mg PO HS heart health 12/28/17 02/13/23 release (Adult Low Dose Aspirin) levothyroxine 100 mcg tablet 100 mcg PO DAILY hypothyroidism 90 12/28/17 02/13/23 days pravastatin 40 mg tablet 40 mg PO HS Cholesterol 90 days 12/28/17 02/13/23 rivaroxaban 2.5 mg tablet (Xarelto) 2.5 mg PO BID anticoagulation/hx 08/14/18 02/13/23 of bypass nitroglycerin 0.4 mg sublingual 0.4 mg sublingual Q5MINP PRN Chest 04/07/20 02/13/23 tablet Pain carvedilol 6.25 mg tablet 6.25 mg PO BID High blood pressure 12/16/20 02/13/23 90 days #90 tabs cyanocobalamin (vitamin B-12) 1,000 mcg PO DAILY 02/13/23 02/13/23 1,000 mcg capsule lisinopril 40 mg tablet 40 mg PO DAILY 02/13/23 02/13/23 Previous Rx's Medication Instructions Recorded omeprazole 40 mg capsule,delayed See Rx Instructions .Route 05/08/23 release .COMPLEX #90 caps sulfamethoxazole 800 1 tab PO BID 7 days #14 tabs 07/09/23 mg-trimethoprim 160 mg tablet Allergies Allergy/AdvReac Type Severity Reaction Status Date / Time cephalexin Allergy Unknown I-RASH Verified 02/13/23 09:06
--- NOTE | 2023-07-08 22:45 | XR_ITS ---
PROCEDURE INFORMATION: Exam: XR Chest Exam date and time: 07/08/2023 11:09 PM Age: 83 years old Clinical indication: Dyspnea TECHNIQUE: Imaging protocol: Radiologic exam of the chest. Views: 1 view. COMPARISON: CR XR CHEST PORTABLE 02/09/2021 6:07 AM FINDINGS: Lungs: Lung volumes are low with bibasilar atelectasis. Mid to upper lungs remain clear. Pleural spaces: Unremarkable. No pleural effusion. No pneumothorax. Heart/Mediastinum: Unremarkable. No cardiomegaly. Bones/joints: Moderate degenerative changes of the spine and shoulders. Sternotomy wires remain in place. IMPRESSION: Mild bibasilar atelectasis.
--- NOTE | 2023-07-08 22:45 | ECG_ITS ---
APPROVED REPORT Exam: Resting ECG HR:68 bpm ECG Measurements Heart Rate 68 AXES WI 186 P 5 QRSd 98 QRS 2 QT 376 T 28 QTc 393 Conclusion SINUS RHYTHM NORMAL ECG UNCONFIRMED REPORT Electronically signed by : Malachi Leon MD 07/09/2023 07:33:00
[2023-07-08 22:49] VITALS: PULSE 68
[2023-07-08 22:53] LABS: Basophils % 0.1 % (0.1-2.0); Eosinophils # 0.1 K/mm3 (0.0-0.4); Eosinophils % 0.6 % (0.1-12.0); Hematocrit 37.3 % (42.0-52.0); Hemoglobin 12.3 g/dL (14.1-18.0); Lymphocytes # 1.2 K/mm3 (0.7-4.5); Lymphocytes % 9.3 % (10-50); Mean Corpuscular Hemoglobin 33.5 pg (27.0-31.2); Mean Corpuscular Volume 101.4 fl (80-94); Mean Platelet Volume 7.4 fl (7.4-10.4); Monocytes # 0.8 K/mm3 (0.1-1.0); Monocytes % 5.9 % (1.7-9.3); Neutrophils # 11.2 K/mm3 (1.8-7.8); Neutrophils % 84.2 % (37.0-80.0); Platelet Count 278 K/mm3 (142-424); Red Blood Count 3.68 M/mm3 (4.60-6.20); Red Cell Distribution Width 13.7 % (11.5-17.5); White Blood Count 13.3 K/mm3 (4.8-10.8)
--- NOTE | 2023-07-08 22:53 | PC.NURSE ---
XR at BS
[2023-07-08 22:59] LABS: Alanine Aminotransferase 32 U/L (12-78); Albumin Level 3.6 g/dl (3.5-5.0); Albumin/Globulin Ratio 1.1 (1.1-1.8); Alkaline Phosphatase 65 U/L (38-126); Anion Gap 11.2 mEq/L (5-15); Aspartate Amino Transferase 29 U/L (17-59); Bilirubin,Total 0.5 mg/dl (0.2-1.3); Blood Urea Nitrogen 22 mg/dl (9-20); Calcium 8.4 mg/dl (8.4-10.2); Carbon Dioxide 25 mmol/L (22.0-30.0); Chloride 104 mmol/L (98-107); Creatinine Clearance Estimated 58 mL/min (50-200); Estimated Glomerular Filt Rate 58 ml/min (>60); GFR (African American) 70 ML/MIN (>60); Globulin 3.2 g/dL (1.3-3.2); Glucose 198 mg/dl (74-100); Potassium 4.2 mmoL/L (3.5-5.1); Sodium 136 mmol/L (136-145); Total Protein,Serum 6.8 g/dl (6.3-8.2)
[2023-07-08 23:00] VITALS: BP 141/61; PULSE 66; RESP 22; O2SAT 99
[2023-07-08 23:04] LABS: D-Dimer 1.03 ug/mL (0.0-0.5)
--- NOTE | 2023-07-08 23:10 | CT_ITS ---
PROCEDURE INFORMATION: Exam: CTA Chest With Contrast Exam date and time: 07/08/2023 11:26 PM Age: 83 years old Clinical indication: Other: Chest pain; Additional info: Cp, positive dimer TECHNIQUE: Imaging protocol: Computed tomographic angiography of the chest with contrast. Exam focused on the arteries. 3D rendering (Not supervised by radiologist): MIP and/or 3D reconstructed images were created by the technologist. Radiation optimization: All CT scans at this facility use at least one of these dose optimization techniques: automated exposure control; mA and/or kV adjustment per patient size (includes targeted exams where dose is matched to clinical indication); or iterative reconstruction. Contrast material: ISOVUE; Contrast volume: 70 ml; Contrast route: INTRAVENOUS (IV); REPORTING DATA: Count of CT and Cardiac NM exams in prior 12 months: This patient has received 0 known CTs and 0 known cardiac nuclear medicine studies in the 12 months prior to the current study. COMPARISON: CT CHEST WO CON 04/05/2020 3:13 PM FINDINGS: Pulmonary arteries: Normal. No pulmonary emboli. Aorta: Unremarkable. No aortic aneurysm. No aortic dissection. 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 Small calcified granuloma in the right middle lobe. Mild patchy infiltrate in the right lung apex. Pleural spaces: Unremarkable. No pneumothorax. No pleural effusion. Heart: Unremarkable. No cardiomegaly. No pericardial effusion. Coronary arteries: Dense coronary artery calcification. Lymph nodes: Unremarkable. No enlarged lymph nodes. Bones/joints: Moderate degenerative disc changes and anterior syndesmophyte formation throughout the thoracic spine. No vertebral body compression or acute fracture. Old post sternotomy changes noted. Soft tissues: Unremarkable. IMPRESSION: 1. Mild right apical pulmonary infiltrate 2. No evidence of pulmonary embolus
[2023-07-08 23:14] LABS: Troponin I < 0.01 ng/ml (0.00-0.034)
[2023-07-09] VITALS (10 sets, daily range): BP systolic 124–150; BP diastolic 52–69; PULSE 62–97; RESP 18–23; TEMP 37.7; O2SAT 94–98
--- NOTE | 2023-07-09 00:41 | PC.NURSE ---
Rounded on patient; urinal provided. Patient does not needed anything at this time. Call light within reach of patient
[2023-07-09 00:43] LABS: Microscopic, Urine URINE MICROSCOPIC (MICROSCOPIC)
[2023-07-09 00:45] LABS: Appearance,Urine CLOUDY (Clear); Bilirubin,Urine Negative (Negative); Blood, Urine 3+ (Negative); Color,Urine YELLOW (Yellow); Glucose,Urine (UA) TRACE (Negative); Ketones,Urine Negative (Negative); Leukocyte Esterase,Urine 1+ (Negative); Nitrate,Urine POSITIVE (Negative); PH,Urine 6.5 (5.0-8.5); Protein,Urine TRACE (Negative)
[2023-07-09 01:00] LABS: Bacteria,Urine 1+ /lpf; Squamous Epithelial Cell,Urine Occasional #/hpf (0-5)
--- NOTE | 2023-07-09 01:09 | PC.NURSE ---
Report handed off to maintenance mechanic 2nd shift.
--- NOTE | 2023-07-09 01:19 | CT_ITS ---
PROCEDURE INFORMATION: Exam: CT Abdomen And Pelvis With Contrast Exam date and time: 07/09/2023 1:36 AM Age: 83 years old Clinical indication: Abdominal pain; Additional info: Abd pain, hematuria TECHNIQUE: Imaging protocol: Computed tomography of the abdomen and pelvis with contrast. Total images: 332 Radiation optimization: All CT scans at this facility use at least one of these dose optimization techniques: automated exposure control; mA and/or kV adjustment per patient size (includes targeted exams where dose is matched to clinical indication); or iterative reconstruction. Contrast material: ISOVUE; Contrast volume: 75 ml; Contrast route: IV; REPORTING DATA: Count of CT and Cardiac NM exams in prior 12 months: This patient has received [address] and 0 known cardiac nuclear medicine studies in the 12 months prior to the current study. COMPARISON: CT ABDOMEN PELVIS W CON 08/31/2019 7:27 PM FINDINGS: Lungs: Considerable respiratory motion obscuring lung bases. Densely calcified right middle lobe granuloma. Bilateral dependent atelectasis. Heart: Normal heart size. Coronary arteries: Extensive coronary artery calcifications. Mediastinal space: Mild gaseous distention of the distal esophagus with layering air-fluid level implying reflux or dysmotility. Liver: Normal. No mass. Gallbladder and bile ducts: Suspect layering noncalcified gallstones. No secondary signs for acute cholecystitis. No bile duct dilatation. Pancreas: Mildly atrophic pancreas with diffuse fatty interdigitation. Multiple scattered pancreatic hypodensities, majority are less than 1 cm and too small to characterize. The largest in the uncinate process measures 17 mm. Findings have progressed from August 31, 2019. Spleen: Calcified splenic granuloma. No splenomegaly. Adrenal glands: Normal. No mass. Kidneys and ureters: No hydronephrosis or renal mass. Chronic bilateral perinephric fat stranding. Stomach and bowel: Nonspecific gastric antral wall thickening. Unremarkable duodenum. No ileus or bowel obstruction. Small bowel is grossly unremarkable. Stool in the distal ileum compatible with chronic stasis. Moderate colonic stool burden. Severe pancolonic diverticulosis without acute diverticulitis. Mostly collapsed rectum. Appendix: Normal appendix. Intraperitoneal space: Unremarkable. No free air. No significant fluid collection. Vasculature: Atherosclerotic abdominal aorta without aneurysm. Lymph nodes: Unremarkable. No enlarged lymph nodes. Urinary bladder: Mild bladder wall thickening. Bladder diverticulum. Reproductive: Mild prostatomegaly with dystrophic calcifications. Bones/joints: Status post median sternotomy. Moderate to severe degenerative changes throughout the thoracolumbar spine including DISH throughout the lower thoracic levels. Moderate degenerative changes bilateral hips. No concerning bone lesions. Soft tissues: Fat containing left inguinal hernia. Small fat containing umbilical hernia. Other findings: Limitations imposed by patient motion artifact obscuring detail. IMPRESSION: 1. Considerable limitations imposed by motion artifact. 2. Nonspecific gastric antral wall thickening can be seen with acute or chronic gastritis. No complicating features. 3. 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 Recommend follow-up nonemergent pancreatic MRI. 4. Severe pancolonic diverticulosis without acute diverticulitis. 5. Bladder wall thickening and multiple bladder diverticulum implying sequela of chronic outlet obstruction. 6. Prostatomegaly. 7. Suspect noncalcified gallstones. No secondary signs of acute cholecystitis. 8. Additional chronic and inc
[2023-07-09 02:24] LABS: Troponin I < 0.01 ng/ml (0.00-0.034)
--- NOTE | 2023-07-09 03:16 | PC.NURSE ---
Called [facility] and verified ABX dose.
--- NOTE | 2023-07-17 09:20 | PC.NURSE ---
urine culture on worklist- growing enterobacter cloacae. Notified Dr. Willett (doctor on shift), pt d/c on Bactrim BID x7 days. Culture id and sensitivity states sensitive to trimethoprim/sulfa. Dr. Willett states no further action needed.
== END 2023-07-09 05:03 | disposition home or self-care (01) ==
PROVIDERS: Student in an Organized Health Care Education/Training Program; Emergency Provider Emergency Medicine
DX: R07.89 Other chest pain (principal); N39.0 Urinary tract infection, site not specified; B95.2 Enterococcus as the cause of diseases classified elsewhere; R10.9 Unspecified abdominal pain; R93.3 Abnormal findings on diagnostic imaging of other parts of digestive tract; I25.10 Atherosclerotic heart disease of native coronary artery without angina pectoris; I11.9 Hypertensive heart disease without heart failure; K21.9 Gastro-esophageal reflux disease without esophagitis; E78.5 Hyperlipidemia, unspecified; Z95.5 Presence of coronary angioplasty implant and graft; Z79.01 Long term (current) use of anticoagulants
CPT/HCPCS: 71045; 71275; 74177; 80053; 81001; 84484; 85025; 85378; 87086; 93005; 96365; 96372; 99285; Q9967

== ENCOUNTER 2023-07-10 18:00 | Inpatient (IN) | payer MEDICARE, SELFPAY ==
--- NOTE | 2023-07-10 18:07 | PC.NURSE ---
arrived by w/c from ED admissions
[2023-07-10 18:11] VITALS: BP 132/60; PULSE 87; RESP 18; TEMP 37.3; O2SAT 94; BMI 29.6
--- NOTE | 2023-07-10 18:14 | XR_ITS ---
PROCEDURE INFORMATION: Exam: XR Chest Exam date and time: 07/10/2023 6:36 PM Age: 83 years old Clinical indication: Cough; Prior surgery; Surgery date: 6+ months; Surgery type: Open heart surgery in 2001; Additional info: Cap. TECHNIQUE: Imaging protocol: Radiologic exam of the chest. Views: 2 views. COMPARISON: CR XR CHEST PORTABLE 07/08/2023 11:09 PM FINDINGS: Lungs: No evidence of acute airspace consolidation. No pulmonary edema. Coarse interstitial markings, not significantly changed from prior chest radiographs. Pleural spaces: No significant pleural effusion. No pneumothorax. Heart/Mediastinum: Cardiomediastinal silouhette is within normal limits. Bones/joints: No evidence of acute osseous abnormality. IMPRESSION: No acute findings.
--- NOTE | 2023-07-10 18:21 | EXP.HP ---
History of Present Illness *Admission Date: 07/10/23 *Reason for visit:: Weakness *History of present illness: Mr. Dickerson is an 83 year old patient of [facility] who was seen in the office this afternoon due to weakness and ER follow up. He was seen in the ER a couple of days ago for upper abdominal pain and chest pain. He had a fairly extensive evaluation that consisted of labs, xrays and CT scans. He was diagnosed with a UTI and given one dose of IV Gentamicin and a prescription for Bactrim for continued treatment at home. He states he has not gotten any better. He is now very weak and needs assistance to stand and walk. He states he has only urinated once today and the urine appeared to contain blood. [facility] Disclaimer: The information contained in this section may have been updated after the patient was seen, as this information can be updated by other users. Medical History (Updated 07/10/23 @ 18:37 by Alfa Ramirez MD) CAD (coronary artery disease) Cervical disc disease CKD (chronic kidney disease) stage 3, GFR 30-59 ml/min Colon polyps Colon, diverticulosis Facet arthropathy, cervical GERD (gastroesophageal reflux disease) Hard of hearing History of left heart catheterization HTN (hypertension), benign Hyperlipidemia Surgical History (Updated 07/10/23 @ 18:29 by Alfa Ramirez MD) History of colonoscopy History of coronary artery bypass graft History of coronary artery stent placement Hx of myringotomy Family History Heart attack Hypertension Social History Smoking Status: Never smoker alcohol intake: never counseling provided: none substance use type: denies use current occupational status: retired Travel in the last 8 weeks: Inside the [place] household members: spouse housing: house caffeine: Yes Review of Systems Constitutional Constitutional: Denies chills and Denies fever(s) ENT Ears, Nose, Mouth, and Throat: Reports disequilibrium, Denies dizziness and Denies dysphagia *Cardiovascular Cardiovascular: Denies chest pain *Respiratory Respiratory: Denies wheezing *Gastrointestinal Gastrointestinal: Denies dysphagia *Genitourinary Genitourinary: Reports hematuria *Musculoskeletal Musculoskeletal: Reports muscle weakness Integumentary/Breasts Skin/Breast: Denies rash *Neurologic Neurologic: Reports disequilibrium and Denies dizziness Allergic/Immunologic Allergic/Immunologic: Denies wheezing Meds Home Medications and Allergies Home Medications Medication Instructions Recorded Confirmed Type aspirin 81 mg tablet,delayed 81 mg PO HS heart health 12/28/17 07/10/23 History release (Adult Low Dose Aspirin) levothyroxine 100 mcg tablet 100 mcg PO DAILY hypothyroidism 90 12/28/17 07/10/23 History days pravastatin 40 mg tablet 40 mg PO HS Cholesterol 90 days 12/28/17 07/10/23 History rivaroxaban 2.5 mg tablet (Xarelto) 2.5 mg PO BID anticoagulation/hx 08/14/18 07/10/23 History of bypass nitroglycerin 0.4 mg sublingual 0.4 mg sublingual Q5MINP PRN Chest 04/07/20 07/10/23 History tablet Pain carvedilol 6.25 mg tablet 6.25 mg PO BID High blood pressure 12/16/20 07/10/23 History 90 days #90 tabs cyanocobalamin (vitamin B-12) 1,000 mcg PO DAILY 02/13/23 07/10/23 History 1,000 mcg capsule lisinopril 40 mg tablet 40 mg PO DAILY 02/13/23 07/10/23 History omeprazole 40 mg capsule,delayed See Rx Instructions .Route 05/08/23 07/10/23 Rx release .COMPLEX #90 caps sulfamethoxazole 800 1 tab PO BID 7 days #14 tabs 07/09/23 07/10/23 Rx mg-trimethoprim 160 mg tablet New Prescriptions to Start Prescriptions: Allergies Allergy/AdvReac Type Severity Reaction Status Date / Time cephalexin Allergy Unknown I-RASH Verified 02/13/23 09:06 Exam Data for Last 24 hours Vital signs and Labs for Last 24 Hours: Temp Pulse Resp BP
[2023-07-10 18:42] LABS: Coronavirus 19, PCR Not Detected (NotDetected); Influenza A, PCR Not Detected (NotDetected); Influenza B, PCR Not Detected (NotDetected)
[2023-07-10 18:45] LABS: Basophils % 0.1 % (0.1-2.0); Hematocrit 37.5 % (42.0-52.0); Hemoglobin 12.5 g/dL (14.1-18.0); Lymphocytes # 0.7 K/mm3 (0.7-4.5); Lymphocytes % 4.6 % (10-50); Mean Corpuscular HGB Conc 33.4 g/dL (31.8-35.4); Mean Corpuscular Hemoglobin 33.5 pg (27.0-31.2); Mean Corpuscular Volume 100.4 fl (80-94); Mean Platelet Volume 7.6 fl (7.4-10.4); Monocytes # 0.9 K/mm3 (0.1-1.0); Neutrophils # 12.6 K/mm3 (1.8-7.8); Neutrophils % 89.3 % (37.0-80.0); Platelet Count 286 K/mm3 (142-424); Red Blood Count 3.74 M/mm3 (4.60-6.20); Red Cell Distribution Width 13.6 % (11.5-17.5); White Blood Count 14.1 K/mm3 (4.8-10.8)
[2023-07-10 18:46] LABS: MANUAL DIFFERENTIAL MANUAL DIFFERENTIAL (MANUAL DIFF)
[2023-07-10 19:00] LABS: Alanine Aminotransferase 274 U/L (12-78); Albumin Level 3.5 g/dl (3.5-5.0); Albumin/Globulin Ratio 1.1 (1.1-1.8); Alkaline Phosphatase 359 U/L (38-126); Anion Gap 13.3 mEq/L (5-15); Aspartate Amino Transferase 355 U/L (17-59); Bilirubin,Total 4.1 mg/dl (0.2-1.3); Blood Urea Nitrogen 27 mg/dl (9-20); Calcium 8.5 mg/dl (8.4-10.2); Carbon Dioxide 23 mmol/L (22.0-30.0); Chloride 101 mmol/L (98-107); Creatinine Clearance Estimated 57 mL/min (50-200); Estimated Glomerular Filt Rate 58 ml/min (>60); GFR (African American) 70 ML/MIN (>60); Globulin 3.3 g/dL (1.3-3.2); Glucose 225 mg/dl (74-100); Potassium 4.3 mmoL/L (3.5-5.1); Sodium 133 mmol/L (136-145); Total Protein,Serum 6.8 g/dl (6.3-8.2)
[2023-07-10 19:03] LABS: Lactic Acid 1.8 mmol/L (0.7-2.1)
[2023-07-10 19:20] LABS: Mycoplasma Pneumo IGM (Rapid) Non-Reactive (Non-Reactiv)
[2023-07-10 19:26] LABS: Lymphocytes % 9 % (10-50); Macrocytosis 1+; Monocytes % 1 % (2-9); Neutrophils % 90 % (42-76); Platelet Estimate Normal; Total Cells Counted 100
[2023-07-10 20:00] VITALS: BP 145/69; PULSE 75; RESP 17; TEMP 36.8; O2SAT 93
[2023-07-11 04:00] VITALS: BP 142/65; PULSE 85; RESP 19; TEMP 36.9; O2SAT 90; BMI 30.7
--- NOTE | 2023-07-11 05:09 | PC.NURSE ---
Patient has been able to rest tonight. Has voided 3times. urine is very dark in color. Patient has not complained of pain. Has sat up in the chair some this shift. No other issues noted
--- NOTE | 2023-07-11 07:44 | HMH.PHAINT1 ---
Pharmacy Intervention Comments: MEDICATION RECONCILIATION COMPLETED ON PATIENT USING EXTERNAL FILL HISTORY FROM PHARMACY AND LIST FROM CARDIOLOGY OFFICE. -DMITRY DANIELSON, MEENAKSHID
[2023-07-11 07:48] VITALS: BP 154/64; PULSE 91; RESP 20; TEMP 36.8; O2SAT 95
--- NOTE | 2023-07-11 08:31 | EXP.ACUTE.PN ---
Subjective *Date: 07/11/23 *Time: 08:31 Interval history: Patient states he feels a little better this morning. Still has some upper abd pain and still feels weak. Medical Exam Vital signs and Labs for Last 24 Hours: Vital Signs Temp Pulse Resp BP Pulse Ox O2 Del Method 07/11/23 07:48 98.2 F 91 H 20 154/64 H 95 Room Air 07/11/23 06:50 Room Air 07/11/23 05:00 Room Air 07/11/23 04:00 98.4 F 85 19 142/65 H 90 L Room Air 07/11/23 01:00 Room Air 07/11/23 03:00 Room Air 07/10/23 23:00 Room Air 07/10/23 21:00 Room Air 07/10/23 20:00 Room Air 07/10/23 20:00 98.3 F 75 17 145/69 H 93 L 07/10/23 19:00 Room Air 07/10/23 18:11 99.2 F 87 18 132/60 94 L Room Air Intake and Output 07/10/23 07/11/23 07/11/23 23:59 07:59 15:59 Intake Total 1979 380 / 2360 Output Total 350 / 350 Balance 1629 Intake: Intake, Oral Amount 380 / 380 Intake, Total IV Amount 1979 0.9 % Sodium Chloride 1000ML 1979 980 ml @ 990 mls/hr IV .Q2H ONE Rx#:[id number] Output: Output, Urine Amount 350 / 350 Other: Number of Unmeasured Voids 1 Weight 189 lb 1 oz 195 lb 9.6 oz Patient Weight 07/11/23 23:59 Weight 195 lb 9.6 oz Laboratory Results - last 24 hr 07/10/23 18:22: WBC 14.1 H, RBC 3.74 L, Hgb 12.5 L, Hct 37.5 L, MCV 100.4 H, MCH 33.5 H, MCHC 33.4, RDW 13.6, Plt Count 286, MPV 7.6, Neut % (Auto) 89.3 H, Lymph % (Auto) 4.6 L, [place] % (Auto) 6.0, Eos % (Auto) 0.0 L, Baso % (Auto) 0.1, Neut # (Auto) 12.6 H, Lymph # (Auto) 0.7, [place] # (Auto) 0.9, Eos # (Auto) 0.0, Baso # (Auto) 0.0, Total Counted 100, Neutrophils % (Manual) 90 H, Lymphocytes % (Manual) 9 L, Monocytes % (Manual) 1 L, Platelet Estimate Normal, Macrocytosis 1+, Sodium 133 L, Potassium 4.3, Chloride 101, Carbon Dioxide 23, Anion Gap 13.3, BUN 27 H, Creatinine 1.20, Estimated Creat Clear 57, Estimated GFR 58 L, Est GFR ( Amer) 70, Glucose 225 H, Lactate 1.8, Calcium 8.5, Total Bilirubin 4.1 H, AST 355 H* D, ALT 274 H D, Alkaline Phosphatase 359 H, Total Protein 6.8, Albumin 3.5, Globulin 3.3 H, Albumin/Globulin Ratio 1.1, SARS-CoV-2 (PCR) Not detected, Influenza A Untype (PCR) Not detected, Influenza Type B (PCR) Not detected, Mycoplasma pneumon IgM Non-reactive I & O for Labs for Last 24 Hours: Intake & Output 07/08/23 07/09/23 07/10/23 07/11/23 23:59 23:59 23:59 23:59 Intake Total 2360 / 2360 Output Total 350 / 350 Balance 2009 Weight 189 lb 1 oz 195 lb 9.6 oz Constitutional: Present no acute distress Respiratory: Present normal respiratory effort Cardiac: Present Reg Rate and Rhythm GI: Present tenderness (RUQ) and normal bowel sounds Extremities: Present normal inspection and full ROM Skin: Present intact; Absent erythema Neuro: Present Grossly Intact and moves all extremities Assessment and Plan *Assessment and plan (1) CAP (community acquired pneumonia): Status: Acute Qualifiers: Laterality: right Lung location: unspecified part of lung Qualified Code(s): J18.9 - Pneumonia, unspecified organism Category: Medical Code(s): J18.9 - Pneumonia, unspecified organism (2) UTI (urinary tract infection): Status: Acute Qualifiers: Urinary tract infection type: site unspecified Hematuria presence: with hematuria Qualified Code(s): N39.0 - Urinary tract infection, site not specified; R31.9 - Hematuria, unspecified Category: Medical Code(s): N39.0 - Urinary tract infection, site not specified (3) Leukocytosis: Status: Acute Qualifiers: Leukocytosis type: unspecified Qualified Code(s): D72.829 - Elevated white blood cell count, unspecified Category: Medical Code(s): D72.829 - Elevated white blood cell count, unspecified (4) Generalized weakness: Status: Acute Category: Medical Code(s):
--- NOTE | 2023-07-11 08:34 | US_ITS ---
FINAL REPORT CLINICAL HISTORY: RUQ abd pain, elevated LFTs, abnormal CT scan FINDINGS: Sonographic images of the right upper quadrant were obtained. The pancreas is partially obscured.The liver has an unremarkable appearance. Stones and sludge are seen in the gallbladder. There is mild gallbladder wall thickening measuring 5 mm. There is borderline biliary ductal dilatation.The common duct measures 7 mm. Limited images of the right kidney are unremarkable. IMPRESSION: Stones and sludge in the gallbladder with gallbladder wall thickening. Acute cholecystitis is not excluded. Nuclear medicine hepatobiliary scan may be helpful. Borderline biliary ductal dilatation. MRCP may be helpful. Reviewed, Interpreted and Dictated by Sergio Buckley III, MD Transcribed by Nelly Coker Authenticated and [facility]
[2023-07-11 11:35] VITALS: BP 130/62; PULSE 87; RESP 18; TEMP 36.8; O2SAT 92
[2023-07-11 16:00] VITALS: BP 134/55; PULSE 86; RESP 18; TEMP 36.9; O2SAT 93
--- NOTE | 2023-07-11 16:04 | EXP.SURG.CON ---
History of Present Illness *Admission Date: 07/10/23 *Reason for visit:: Gallbladder *History of present illness: Patient is an 83-year-old male whom I am asked to see in [facility] from [facility] for [facility]adder. He is an 83-year-old male with history of coronary artery disease, chronic kidney disease, anemia, carotid artery stenosis. He had been seen in the emergency department on 07/08/2023 with complaints of chest pain and abdominal pain. He described nonexertional left anterior lateral chest pain with some discomfort in his left upper quadrant. He does have a prior history of myocardial infarction and multivessel bypass surgery and coronary stenting. He is on Xarelto. He underwent a very thorough work-up in the emergency department at that time. Of note, he had normal liver function test at that time. CT scan at that time revealed abnormality of his pancreas with multiple pancreatic hypodensities which could reflect intraductal papillary mucinous neoplasm. He has not had pancreatic enzyme evaluation. There was noted bladder wall thickening. There is also findings consistent with noncalcified gallstones. He was also diagnosed with urinary tract infection and asked to follow-up with his primary care provider. He was seen in the [facility] with [facility] yesterday on 07/10/2023 after follow-up from the emergency department. He described upper abdominal pain and chest pain. He had developed some significant progressive weakness and decreased urination and therefore was admitted as a direct admit to [facility] yesterday evening for failed outpatient management. Upon admission in the evening of 07/10/2023 he was found to have a leukocytosis with left shift. Blood work also revealed an AST of 355 and ALT of 274 with alkaline phosphatase of 359 and a bilirubin of 4.1. Liver function test on 07/08/2023 were normal. Patient describes dark tea colored urine and decreased urination. Gallbladder ultrasound was ordered for this morning but the patient had eaten breakfast and therefore he underwent gallbladder ultrasound this afternoon on 07/11/2023. Official report is pending but review of imaging reveals gallstones, gallbladder wall thickening, pericholecystic fluid, common bile duct of 7.4 mm. Surgical consultation was ordered this afternoon. [facility] Disclaimer: The information contained in this section may have been updated after the patient was seen, as this information can be updated by other users. Medical History (Updated 07/11/23 @ 08:33 by Alfa Ramirez MD) CAD (coronary artery disease) Cervical disc disease CKD (chronic kidney disease) stage 3, GFR 30-59 ml/min Colon polyps Colon, diverticulosis Facet arthropathy, cervical GERD (gastroesophageal reflux disease) Hard of hearing History of left heart catheterization HTN (hypertension), benign Hyperlipidemia Surgical History History of colonoscopy History of coronary artery bypass graft History of coronary artery stent placement Hx of myringotomy Family History Heart attack Hypertension Social History Smoking Status: Never smoker alcohol intake: never counseling provided: none substance use type: denies use current occupational status: retired Travel in the last 8 weeks: Inside the [place] household members: spouse housing: house caffeine: Yes Review of Systems ENT Ears, Nose, Mouth, and Throat: Reports disequilibrium and Denies dizziness *Neurologic Neurologic: Reports disequilibrium and Denies dizziness Meds Home Medications and Allergies Home Medications Medication Instructions Recorded Confirmed Type aspirin 81 mg tablet,delayed 81 mg PO [facility] 12/28/17 07/10/23 History release (Adult Low Dose Aspirin) levothyroxine 100 mcg t
--- NOTE | 2023-07-11 16:07 | PC.NURSE ---
A&OX4. TOLERATING RA WELL. HAS BEEN UP TO THE CHAIR MAJORITY OF SHIFT. HAS HAD NO C/O OR NEEDS NOTED THUS FAR. PT HAD U/S AND IS NOW REMAINING NPO FOR SURGERY CONSULT. AT BEDSIDE. VSS.
[2023-07-11 17:09] LABS: Amylase < 30 U/L (30-110); Lipase 22 U/L (23-300)
[2023-07-11 20:00] VITALS: BP 121/56; PULSE 89; RESP 20; TEMP 36.6; O2SAT 92
[2023-07-11 21:25] VITALS: RESP 28
[2023-07-12] VITALS: BP 131/49; PULSE 90; RESP 18; TEMP 36.4; O2SAT 90
[2023-07-12 04:00] VITALS: BP 111/55; PULSE 83; RESP 18; TEMP 36.9; BMI 31.1
[2023-07-12 06:35] LABS: Eosinophils % 0.1 % (0.1-12.0); Hematocrit 31.3 % (42.0-52.0); Lymphocytes # 0.5 K/mm3 (0.7-4.5); Lymphocytes % 4.4 % (10-50); Mean Corpuscular HGB Conc 35.1 g/dL (31.8-35.4); Mean Corpuscular Hemoglobin 35.7 pg (27.0-31.2); Mean Corpuscular Volume 101.7 fl (80-94); Monocytes # 0.7 K/mm3 (0.1-1.0); Monocytes % 6.5 % (1.7-9.3); Neutrophils # 9.9 K/mm3 (1.8-7.8); Platelet Count 169 K/mm3 (142-424); Red Blood Count 3.08 M/mm3 (4.60-6.20); Red Cell Distribution Width 13.8 % (11.5-17.5); White Blood Count 11.2 K/mm3 (4.8-10.8)
--- NOTE | 2023-07-12 06:36 | PC.NURSE ---
pt npo after 11 pm for mcrp this am, pt assisted to chair through the night, rested well. pt appeared to be soa. prn duoneb given
[2023-07-12 06:37] LABS: Chloride 101 mmol/L (98-107); Sodium 128 mmol/L (136-145)
[2023-07-12 06:38] LABS: Potassium 3.7 mmoL/L (3.5-5.1)
[2023-07-12 06:40] LABS: Alanine Aminotransferase 231 U/L (12-78); Albumin Level 2.5 g/dl (3.5-5.0); Alkaline Phosphatase 280 U/L (38-126); Anion Gap 9.7 mEq/L (5-15); Aspartate Amino Transferase 207 U/L (17-59); Bilirubin,Total 4.5 mg/dl (0.2-1.3); Blood Urea Nitrogen 27 mg/dl (9-20); Carbon Dioxide 21 mmol/L (22.0-30.0); Creatinine Clearance Estimated 65 mL/min (50-200); Estimated Glomerular Filt Rate 64 ml/min (>60); GFR (African American) 77 ML/MIN (>60); Globulin 2.6 g/dL (1.3-3.2); Total Protein,Serum 5.1 g/dl (6.3-8.2)
[2023-07-12 06:41] LABS: Calcium 7.6 mg/dl (8.4-10.2); Glucose 147 mg/dl (74-100); Lipase 22 U/L (23-300)
[2023-07-12 06:42] LABS: MANUAL DIFFERENTIAL MANUAL DIFFERENTIAL (MANUAL DIFF)
[2023-07-12 06:44] LABS: Amylase < 30 U/L (30-110)
--- NOTE | 2023-07-12 07:00 | MR_ITS ---
FINAL REPORT CLINICAL HISTORY: MRCP, abd pain, jaundice COMPARISON: CT abdomen pelvis 07/09/2023 FINDINGS: Multiplanar MR imaging of the abdomen was performed without contrast. There are small pleural effusions. There is a 50 x 33 mm multicystic area in the superior left hepatic lobe. There are other small cystic areas in the medial segment of the left hepatic lobe. These are of uncertain etiology and may represent focal biliary ductal dilatation or cystic hepatic neoplasms. These were not well seen on the prior CT scan. Abscesses could have a similar appearance. The gallbladder is moderately distended with wall thickening. There are several gallstones and sludge or debris. There is a filling defect of the distal common bile duct measuring 5 mm, most worrisome for common bile duct stone. This is well seen on series 3 image 16. There are multiple small cystic areas in the pancreas measuring up to 7 mm. Differential diagnosis includes IPMN (intraductal papillary mucinous neoplasm) or possibly small pseudocyst. There are small bilateral renal cysts.. IMPRESSION: Multiple small cystic areas in the pancreas. Differential diagnosis includes IPMN versus small pseudocyst. Follow-up MRCP may be helpful. Gallbladder wall thickening with gallstones. Cholecystitis not excluded. Findings consistent with common bile duct stone. Cystic areas left hepatic lobe of uncertain etiology. Differential diagnosis includes focal biliary ductal dilatation or cystic neoplastic abscesses. Reviewed, Interpreted and Dictated by Sergio Buckley III, MD Transcribed by Cha Carrillo Authenticated and [facility]
[2023-07-12 07:05] VITALS: BP 137/60; PULSE 78; RESP 22; TEMP 36.6; O2SAT 92
[2023-07-12 07:41] LABS: Lymphocytes % 8 % (10-50); Macrocytosis 1+; Monocytes % 6 % (2-9); Neutrophils % 86 % (42-76); Total Cells Counted 100
[2023-07-12 07:42] LABS: Platelet Estimate Normal
--- NOTE | 2023-07-12 08:08 | EXP.SURG.PN ---
Subjective Narrative: Patient currently off floor at MRI for MR CP Exam Data for Last 24 hours Vital signs and Labs for Last 24 Hours: Temp Pulse Resp BP Pulse Ox O2 Del Method 97.9 F 78 22 137/60 92 L Room Air 07/12/23 07:05 07/12/23 07:05 07/12/23 07:05 07/12/23 07:05 07/12/23 07:05 07/12/23 07:05 Laboratory Results - last 24 hr 07/11/23 16:54: Amylase < 30 L, Lipase 22 L 07/12/23 05:26: WBC 11.2 H, RBC 3.08 L, Hgb 11.0 L, Hct 31.3 L, MCV 101.7 H, MCH 35.7 H, MCHC 35.1, RDW 13.8, Plt Count 169 D, MPV 8.0, Neut % (Auto) 89.0 H, Lymph % (Auto) 4.4 L, [place] % (Auto) 6.5, Eos % (Auto) 0.1, Baso % (Auto) 0.0 L, Neut # (Auto) 9.9 H, Lymph # (Auto) 0.5 L, [place] # (Auto) 0.7, Eos # (Auto) 0.0, Baso # (Auto) 0.0, Total Counted 100, Neutrophils % (Manual) 86 H, Lymphocytes % (Manual) 8 L, Monocytes % (Manual) 6, Platelet Estimate Normal, Macrocytosis 1+, Sodium 128 L, Potassium 3.7, Chloride 101, Carbon Dioxide 21 L, Anion Gap 9.7, BUN 27 H, Creatinine 1.10, Estimated Creat Clear 65, Estimated GFR 64, Est GFR ( Amer) 77, Glucose 147 H, Calcium 7.6 L, Total Bilirubin 4.5 H, AST 207 H D, ALT 231 H, Alkaline Phosphatase 280 H, Total Protein 5.1 L, Albumin 2.5 L D, Globulin 2.6, Albumin/Globulin Ratio 1.0 L, Amylase < 30 L, Lipase 22 L I & O for Last 24 hours: Intake & Output 07/09/23 07/10/23 07/11/23 07/12/23 11:59 11:59 11:59 11:59 Intake Total 2360 / 2360 0 / 0 Output Total 350 / 350 200 / 200 Balance 2009 -200 / -200 Weight 195 lb 9.6 oz 198 lb 4 oz Progress Note: A&P Assessment and plan (1) Gallstones: Status: Acute Assessment and plan: He has shown slight improvement in transaminases but still within generally same range but some progressive increase in bilirubin slightly to 4.5. Surgery at [facility] has been contacted and would not accept the patient without MRCP. He is currently undergoing MRCP. Otherwise patient is on the wait list at [facility]. If MRCP reveals evidence of common duct stone he will need transfer for management of choledocholithiasis/cholangitis. If definitively clear without obstruction potential cholecystectomy with possible cholangiogram may be considered.
--- NOTE | 2023-07-12 08:43 | EXP.ACUTE.PN ---
Subjective *Date: 07/12/23 *Time: 08:43 Interval history: Patient with no new complaints today. RUQ u/s report and surgical consultation reviewed. Medical Exam Vital signs and Labs for Last 24 Hours: Vital Signs Temp Pulse Resp BP Pulse Ox O2 Del Method 07/12/23 07:00 Room Air 07/12/23 07:05 97.9 F 78 22 137/60 92 L Room Air 07/12/23 05:00 Room Air 07/12/23 03:00 Room Air 07/12/23 04:00 98.5 F 83 18 111/55 L 07/12/23 01:00 Room Air 07/11/23 23:00 Room Air 07/12/23 00:00 97.6 F 90 18 131/49 L 90 L Room Air 07/11/23 21:00 Room Air 07/11/23 19:00 Room Air 07/11/23 21:25 28 H Room Air 07/11/23 20:00 97.9 F 89 20 121/56 L 92 L Room Air 07/11/23 17:00 Room Air 07/11/23 16:00 98.4 F 86 18 134/55 L 93 L Room Air 07/11/23 15:16 Room Air 07/11/23 12:31 Room Air 07/11/23 11:35 98.2 F 87 18 130/62 92 L 07/11/23 10:34 Room Air 07/11/23 08:46 Room Air Intake and Output 07/11/23 07/12/23 07/12/23 23:59 07:59 15:59 Intake Total 0 / 0 Output Total 200 / 200 Balance -200 / -200 Intake: Intake, Oral Amount 0 / 0 Output: Output, Urine Amount 200 / 200 Other: Number of Unmeasured Voids 1 1 Weight 198 lb 4 oz Patient Weight 07/12/23 23:59 Weight 198 lb 4 oz Laboratory Results - last 24 hr 07/11/23 16:54: Amylase < 30 L, Lipase 22 L 07/12/23 05:26: WBC 11.2 H, RBC 3.08 L, Hgb 11.0 L, Hct 31.3 L, MCV 101.7 H, MCH 35.7 H, MCHC 35.1, RDW 13.8, Plt Count 169 D, MPV 8.0, Neut % (Auto) 89.0 H, Lymph % (Auto) 4.4 L, Mcleod % (Auto) 6.5, Eos % (Auto) 0.1, Baso % (Auto) 0.0 L, Neut # (Auto) 9.9 H, Lymph # (Auto) 0.5 L, Mcleod # (Auto) 0.7, Eos # (Auto) 0.0, Baso # (Auto) 0.0, Total Counted 100, Neutrophils % (Manual) 86 H, Lymphocytes % (Manual) 8 L, Monocytes % (Manual) 6, Platelet Estimate Normal, Macrocytosis 1+, Sodium 128 L, Potassium 3.7, Chloride 101, Carbon Dioxide 21 L, Anion Gap 9.7, BUN 27 H, Creatinine 1.10, Estimated Creat Clear 65, Estimated GFR 64, Est GFR ( Amer) 77, Glucose 147 H, Calcium 7.6 L, Total Bilirubin 4.5 H, AST 207 H D, ALT 231 H, Alkaline Phosphatase 280 H, Total Protein 5.1 L, Albumin 2.5 L D, Globulin 2.6, Albumin/Globulin Ratio 1.0 L, Amylase < 30 L, Lipase 22 L I & O for Labs for Last 24 Hours: Intake & Output 07/09/23 07/10/23 07/11/23 07/12/23 23:59 23:59 23:59 23:59 Intake Total 2360 / 2360 0 / 0 Output Total 350 / 350 200 / 200 Balance 2009 -200 / -200 Weight 189 lb 1 oz 195 lb 9.6 oz 198 lb 4 oz Constitutional: Present no acute distress Respiratory: Present normal respiratory effort Cardiac: Present Reg Rate and Rhythm GI: Present tenderness (RUQ) and normal bowel sounds Extremities: Present normal inspection and full ROM Skin: Present intact; Absent erythema Neuro: Present Grossly Intact and moves all extremities Assessment and Plan *Assessment and plan (1) CAP (community acquired pneumonia): Status: Acute Qualifiers: Laterality: right Lung location: unspecified part of lung Qualified Code(s): J18.9 - Pneumonia, unspecified organism Category: Medical Code(s): J18.9 - Pneumonia, unspecified organism (2) UTI (urinary tract infection): Status: Acute Qualifiers: Urinary tract infection type: site unspecified Hematuria presence: with hematuria Qualified Code(s): N39.0 - Urinary tract infection, site not specified; R31.9 - Hematuria, unspecified Category: Medical Code(s): N39.0 - Urinary tract infection, site not specified (3) Leukocytosis: Status: Acute Qualifiers: Leukocytosis type: unspecified Qualified Code(s): D72.829 - Elevated white blood cell count, unspecified Category: Medical Code(s): D72.829 - Elevated white blood cell count, unspecified (4) Generalized weakness: Status: Acute Category: Medical Code
--- NOTE | 2023-07-12 09:39 | CARE MANAGER ---
Laboratory Results - last 72 hr 07/10/23 07/11/23 07/12/23 18:22 16:54 05:26 WBC 14.1 H 11.2 H RBC 3.74 L 3.08 L Hgb 12.5 L 11.0 L Hct 37.5 L 31.3 L MCV 100.4 H 101.7 H MCH 33.5 H 35.7 H MCHC 33.4 35.1 RDW 13.6 13.8 Plt Count 286 169 D MPV 7.6 8.0 Neut % (Auto) 89.3 H 89.0 H Lymph % (Auto) 4.6 L 4.4 L [place] % (Auto) 6.0 6.5 Eos % (Auto) 0.0 L 0.1 Baso % (Auto) 0.1 0.0 L Neut # (Auto) 12.6 H 9.9 H Lymph # (Auto) 0.7 0.5 L [place] # (Auto) 0.9 0.7 Eos # (Auto) 0.0 0.0 Baso # (Auto) 0.0 0.0 Total Counted 100 100 Neutrophils % (Manual) 90 H 86 H Lymphocytes % (Manual) 9 L 8 L Monocytes % (Manual) 1 L 6 Platelet Estimate Normal Normal Macrocytosis 1+ 1+ Sodium 133 L 128 L Potassium 4.3 3.7 Chloride 101 101 Carbon Dioxide 23 21 L Anion Gap 13.3 9.7 BUN 27 H 27 H Creatinine 1.20 1.10 Estimated Creat Clear 57 65 Estimated GFR 58 L 64 Est GFR ( Amer) 70 77 Glucose 225 H 147 H Lactate 1.8 Calcium 8.5 7.6 L Total Bilirubin 4.1 H 4.5 H AST 355 H* D 207 H D ALT 274 H D 231 H Alkaline Phosphatase 359 H 280 H Total Protein 6.8 5.1 L Albumin 3.5 2.5 L D Globulin 3.3 H 2.6 Albumin/Globulin Ratio 1.1 1.0 L Amylase < 30 L < 30 L Lipase 22 L 22 L SARS-CoV-2 (PCR) Not detected Influenza A Untype (PCR) Not detected Influenza Type B (PCR) Not detected Mycoplasma pneumon IgM Non-reactive
[2023-07-12 10:46] VITALS: BP 107/59; PULSE 76; RESP 20; TEMP 36.9; O2SAT 92
--- NOTE | 2023-07-12 12:53 | PC.NURSE ---
[facility] CALLED FOR UPDATE ON PT AND SET OF VITALS AT 1224. NO BED AVAILABLE AT THIS TIME.
[2023-07-12 14:43] VITALS: BP 104/51; PULSE 85; RESP 18; TEMP 36.4; O2SAT 91
--- NOTE | 2023-07-12 18:09 | PC.NURSE ---
A&OX4. TOLERATING RA WELL. HAS BEEN UP TO THE CHAIR THIS SHIFT, TOLERATING FULL LIQUID DIET WELL. FAMILY REMAINS AT BEDSIDE. PT DID C/O HIP PAIN LATER IN SHIFT, TYLENOL PER NOV. EFFECTIVENESS NOTED. NO OTHER NEEDS NOTED AT THIS TIME. AWAITING BED FROM [facility]. VSS.
--- NOTE | 2023-07-12 18:23 | PC.NURSE ---
LUCIA FROM [facility] CALLED, STILL NO BEDS AVAILABLE AT THIS TIME.
[2023-07-12 19:59] VITALS: BP 118/58; PULSE 79; RESP 18; TEMP 36.9; O2SAT 94
--- NOTE | 2023-07-12 22:00 | PC.NURSE ---
pt c/o nausea without vomiting at 2200 - gave zofran
[2023-07-13] VITALS: BP 84/46; BP 88/39; PULSE 81; RESP 18; TEMP 36.8; O2SAT 91
--- NOTE | 2023-07-13 00:39 | PC.NURSE ---
hypotension noted with map of 59. contacted [facility] at 0025. new orders for 1l bolus of NS and increase D5/0.45%NS/KCL from 75ml/hr to 125ml/hr
--- NOTE | 2023-07-13 00:56 | PC.NURSE ---
0056 Justa Perla from called for a status update. Informed her of his hypotension, jaundicing of face/neck, increased c/o of feeling rough . She stated that if condition continues to deteriorate, to inform and have him call the physician at .
[2023-07-13 04:00] VITALS: BP 103/47; PULSE 73; RESP 18; TEMP 36.7; O2SAT 90; BMI 31.1
--- NOTE | 2023-07-13 07:39 | PC.NURSE ---
Addendum entered by Ladonna Bettencourt 07/13/23 07:40: updated pts whiteboard, no needs at this time Original Note: rounded on pt
[2023-07-13 08:00] VITALS: BP 82/45; PULSE 75; RESP 18; TEMP 36.3; O2SAT 91; O2SAT 96
--- NOTE | 2023-07-13 08:11 | EXP.ACUTE.PN ---
Subjective *Date: 07/13/23 *Time: 08:44 Interval history: Patient states he had a spell in the middle of the night. According to his nurse, he had hypotension and had to be given a bolus of fluid. His BP improved, but is now low again this am. He is not symptomatic. He is sitting up trying to eat his breakfast. He denies any pain other than in his hip. He states he uses salonpas patches at home and wanted to know if he could get lidocaine patches here. Medical Exam Vital signs and Labs for Last 24 Hours: Vital Signs Temp Pulse Resp BP BP Pulse Ox O2 Del Method 07/13/23 06:32 Room Air 07/13/23 04:00 98.0 F 73 18 103/47 L 90 L 07/13/23 05:00 Room Air 07/13/23 02:34 Room Air 07/13/23 00:49 Room Air 07/12/23 23:00 Room Air 07/13/23 00:00 98.2 F 81 18 84/46 L 88/39 L 91 L Room Air 07/12/23 21:00 Room Air 07/12/23 19:59 98.4 F 79 18 118/58 L 94 L Room Air 07/12/23 19:43 Room Air 07/12/23 18:36 Room Air 07/12/23 16:44 Room Air 07/12/23 15:00 Room Air 07/12/23 14:43 97.6 F 85 18 104/51 L 91 L Room Air 07/12/23 12:53 Room Air 07/12/23 10:46 98.4 F 76 20 107/59 L 92 L Room Air 07/12/23 10:39 Room Air 07/12/23 08:51 Room Air Intake and Output 07/12/23 07/13/23 07/13/23 19:59 03:59 11:59 Intake Total 780 / 2762 120 / 2762 186 / 276 Output Total 200 / 400 200 / 400 Balance 580 / 2362 - / 2362 1861 Intake: Intake, Oral Amount 780 / 900 120 / 900 Intake, Total IV Amount 1861 0.9 % Sodium Chloride 1000ML 1, 1000 / 1000 000 ml @ 999 mls/hr IV ONCE ONE Rx#:[id number] D5W/0.45% NaCl w/20mEq KCL 1, 502 / 502 000 ml @ 125 mls/hr IV .Q8H RENNY Rx#:[id number] D5W/0.45% NaCl w/20mEq KCL 1, 360 / 360 000 ml @ 75 mls/hr IV .[id number] Rx#:[id number] Output: Output, Urine Amount 200 / 400 200 / 400 Other: Number of Unmeasured Voids 0 0 Weight 198 lb 5 oz Patient Weight 07/13/23 11:59 Weight 198 lb 5 oz I & O for Labs for Last 24 Hours: Intake & Output 07/10/23 07/11/23 07/12/23 07/13/23 11:59 11:59 11:59 11:59 Intake Total 2360 / 2360 0 / 0 2762 / 2762 Output Total 350 / 350 200 / 200 400 / 400 Balance 2009 -200 / -200 2362 / 2362 Weight 195 lb 9.6 oz 198 lb 4 oz 198 lb 5 oz Microbiology Reports for the Last 24 Hours: Microbiology 07/10/23 18:40 Blood Blood Culture - Preliminary NO GROWTH AFTER 48 HOURS 07/10/23 18:48 Blood Blood Culture - Preliminary NO GROWTH AFTER 48 HOURS Constitutional: Present no acute distress Respiratory: Present CTA bilaterally and normal respiratory effort Cardiac: Present Reg Rate and Rhythm GI: Present tenderness (RLQ, RMQ) and normal bowel sounds Extremities: Present normal inspection, full ROM and edema (Trace bilateral LE's) Skin: Present intact; Absent erythema Neuro: Present Grossly Intact and moves all extremities Assessment and Plan *Assessment and plan (1) CAP (community acquired pneumonia): Status: Acute Qualifiers: Laterality: right Lung location: unspecified part of lung Qualified Code(s): J18.9 - Pneumonia, unspecified organism Category: Medical Code(s): J18.9 - Pneumonia, unspecified organism (2) UTI (urinary tract infection): Status: Acute Qualifiers: Hematuria presence: with hematuria Urinary tract infection type: site unspecified Qualified Code(s): N39.0 - Urinary tract infection, site not specified; R31.9 - Hematuria, unspecified Category: Medical Code(s): N39.0 - Urinary tract infection, site not specified (3) Leukocytosis: Status: Acute Qualifiers: Leukocytosis type: unspecified Qualified Code(s): D72.829 - Elevated white blood cell count, unspecified Category: Medical
--- NOTE | 2023-07-13 08:55 | PC.NURSE ---
gave pt supplies for a bath. pt said his is going to bathe him. no other needs at this time
[2023-07-13 09:24] LABS: Eosinophils % 0.1 % (0.1-12.0); Hematocrit 30.3 % (42.0-52.0); Hemoglobin 10.2 g/dL (14.1-18.0); Lymphocytes # 0.7 K/mm3 (0.7-4.5); Lymphocytes % 6.5 % (10-50); Mean Corpuscular HGB Conc 33.8 g/dL (31.8-35.4); Mean Corpuscular Hemoglobin 35.7 pg (27.0-31.2); Mean Corpuscular Volume 105.6 fl (80-94); Mean Platelet Volume 8.2 fl (7.4-10.4); Monocytes # 0.7 K/mm3 (0.1-1.0); Monocytes % 6.2 % (1.7-9.3); Neutrophils # 9.7 K/mm3 (1.8-7.8); Neutrophils % 87.2 % (37.0-80.0); Platelet Count 152 K/mm3 (142-424); Red Blood Count 2.86 M/mm3 (4.60-6.20); Red Cell Distribution Width 14.3 % (11.5-17.5); White Blood Count 11.1 K/mm3 (4.8-10.8)
[2023-07-13 09:26] LABS: Alanine Aminotransferase 181 U/L (12-78); Albumin Level 2.2 g/dl (3.5-5.0); Albumin/Globulin Ratio 0.8 (1.1-1.8); Alkaline Phosphatase 227 U/L (38-126); Anion Gap 9.9 mEq/L (5-15); Aspartate Amino Transferase 131 U/L (17-59); Bilirubin,Total 3.3 mg/dl (0.2-1.3); Blood Urea Nitrogen 33 mg/dl (9-20); Calcium 7.2 mg/dl (8.4-10.2); Carbon Dioxide 22 mmol/L (22.0-30.0); Chloride 99 mmol/L (98-107); Creatinine Clearance Estimated 51 mL/min (50-200); Estimated Glomerular Filt Rate 48 ml/min (>60); GFR (African American) 59 ML/MIN (>60); Globulin 2.7 g/dL (1.3-3.2); Glucose 207 mg/dl (74-100); Potassium 3.9 mmoL/L (3.5-5.1); Sodium 127 mmol/L (136-145); Total Protein,Serum 4.9 g/dl (6.3-8.2)
[2023-07-13 09:27] LABS: MANUAL DIFFERENTIAL MANUAL DIFFERENTIAL (MANUAL DIFF)
[2023-07-13 09:43] VITALS: PULSE 77; RESP 16
--- NOTE | 2023-07-13 11:09 | PC.NURSE ---
COURTESY NOTE: rounded on pt, pt denied use of any assistance at this time. call light within reach.
[2023-07-13 11:27] LABS: Lymphocytes % 5 % (10-50); Monocytes % 4 % (2-9); Neutrophils % 91 % (42-76); Total Cells Counted 100
[2023-07-13 11:29] LABS: Platelet Estimate Normal
[2023-07-13 11:30] LABS: Macrocytosis 1+
[2023-07-13 12:00] VITALS: BP 109/49; PULSE 78; RESP 18; TEMP 36.6; O2SAT 91
[2023-07-13 15:15] VITALS: BMI 31.1
[2023-07-13 16:00] VITALS: BP 107/72; PULSE 81; RESP 21; TEMP 36.8; O2SAT 92
--- NOTE | 2023-07-13 16:05 | PC.NURSE ---
Report called to Marianna at [place], [place].
--- NOTE | 2023-07-13 16:12 | PC.NURSE ---
COURTESY NOTE: rounded on pt. pt has no requests at this time.
--- NOTE | 2023-07-17 20:54 | EXP.DC.SUM ---
General Admission date:: 07/10/23 Discharge date: 07/13/23 HPI HPI HPI: Mr. Dickerson is an 83 year old patient of [facility] who was seen in the office this afternoon due to weakness and ER follow up. He was seen in the ER a couple of days ago for upper abdominal pain and chest pain. He had a fairly extensive evaluation that consisted of labs, xrays and CT scans. He was diagnosed with a UTI and given one dose of IV Gentamicin and a prescription for Bactrim for continued treatment at home. He states he has not gotten any better. He is now very weak and needs assistance to stand and walk. He states he has only urinated once today and the urine appeared to contain blood. Hospital Course Hospital Course Hospital Course: The patient failed outpatient treatment and was admitted for further testing, IV fluids, and IV antibiotics. He did begin feeling better but continued with some upper abdominal pain and weakness. His LFTs were elevated on admission. His CT showed multiple pancreatic hypodensities and radiology recommended a pancreatic MRI. A right upper quadrant ultrasound showed stones and sludge in the gallbladder with gallbladder wall thickening. There was also borderline biliary ductal dilatation and radiology felt the patient should have an MRCP. The MRCP showed multiple cystic areas in the pancreas and gallbladder wall thickening with gallstones. He did have a common bile duct stone. General surgery was consulted and Dr. Torres felt he could have obstructive choledocholithiasis with the potential for ascending cholangitis. He felt he would need an ERCP and recommended transfer. His liver function test did improve slightly, but his bilirubin continued to increase. The patient had an episode of hypotension during the evening of and had to be given a bolus of fluid. His blood pressure improved but then decreased again. He was not symptomatic. His blood pressure medications were discontinued. The patient was placed on a wait list at both [facility] and . He was excepted at [facility] and was transferred for further evaluation and treatment. Exam Data for Last 24 hours Vital signs and Labs for Last 24 Hours: Temp Pulse Resp BP Pulse Ox O2 Del Method 98.2 F 81 21 107/72 L 92 L Room Air 07/13/23 16:00 07/13/23 16:00 07/13/23 16:00 07/13/23 16:00 07/13/23 16:00 07/13/23 16:00 Microbiology Reports for the Last 24 Hours: Microbiology 07/10/23 18:48 Blood Blood Culture - Final 07/10/23 18:40 Blood Blood Culture - Final Narrative: Constitutional Constitutional: mild distress Comments: sitting in a wheel chair, needs assistance to stand and walk *Routine HEENT Exam Head: Present normocephalic Eye: Present EOMI and PERRL ENT: Present mucous membranes moist *Routine Neck Exam Neck: Present supple; Absent lymphadenopathy *Routine Respiratory Exam Respiratory: Present decreased breath sounds (at right base) and CTA bilaterally (on left) *Routine Cardiovascular Exam Cardiovascular: Present RRR *Routine Abdominal Exam Abdominal: Present soft and normoactive bowel sounds; Absent tenderness *Routine Rectal Exam Rectal:: deferred *Routine Genitalia Exam Genitalia:: deferred *Routine Extremities Exam Extremities: Absent cyanosis, clubbing or edema *Routine Skin Exam Skin: Present warm; Absent rash *Routine Neurological Exam Neurological: Present alert and oriented X3 DS: Diagnosis Discharge Diagnosis (1) CAP (community acquired pneumonia): Status: Acute Code(s): J18.9 - Pneumonia, unspecified organism Qualifiers: Laterality: right Lung location: unspecified part of lung Qualified Code(s): J18.9 - Pneumonia, unspecified organism (2) UTI (urinary tract infection): Status: Acute Code(s): N39.0 - Urinary tract infection, site not specified Qualifiers: Urinary tract infection type: site unspecified Hematuria prese
== END 2023-07-13 16:34 | disposition short-term general hospital (02) | DRG 194 ==
PROVIDERS: Surgery; Admitting Provider Family Medicine; PCP Family Medicine; Visit Provider Family Medicine
DX: J18.9 Pneumonia, unspecified organism (principal); I25.110 Atherosclerotic heart disease of native coronary artery with unstable angina pectoris; N39.0 Urinary tract infection, site not specified; Q45.3 Other congenital malformations of pancreas and pancreatic duct; R31.9 Hematuria, unspecified; N18.30 Chronic kidney disease, stage 3 unspecified; K80.20 Calculus of gallbladder without cholecystitis without obstruction; R79.89 Other specified abnormal findings of blood chemistry; E80.6 Other disorders of bilirubin metabolism
CPT/HCPCS: 36415; 71046; 74181; 76376; 76705; 80053; 82150; 83605; 83690; 85007; 85025; 86738; 87040; 87636; J1956; J2405

== ENCOUNTER 2023-07-28 06:53 | Inpatient (IN) | payer MEDICARE, SELFPAY ==
[2023-07-28] VITALS (15 sets, daily range): BP systolic 89–158; BP diastolic 44–73; PULSE 66–110; RESP 15–31; TEMP 36.6–37.7; O2SAT 92–100; BMI 29.0; BMI 29.8
--- NOTE | 2023-07-28 06:56 | XR_ITS ---
FINAL REPORT CLINICAL HISTORY: covid 2LNC COMPARISON: 07/10/2023 FINDINGS: SINGLE-VIEW CHEST The heart size is normal. The patient is status post median sternotomy. There are worsening bibasilar opacities, may represent atelectasis or pneumonia. There is no pneumothorax. IMPRESSION: Worsening bibasilar atelectasis or pneumonia. Reviewed, Interpreted and Dictated by Sergio Buckley III, MD Transcribed by Kesha Garcia Authenticated and [facility]
--- NOTE | 2023-07-28 07:00 | HMH.EDGENADL ---
Discharge Plan Disposition Patient Disposition: Admitted Chief Complaint: Weakness Prescriptions Prescriptions: No Action Xarelto 2.5 mg tablet 2.5 mg PO BIDWMEAL Hold Instructions: Resume on 07/17/23. pravastatin 40 mg tablet 40 mg PO HS 90 Days Patient Comments: levothyroxine 100 mcg tablet 100 mcg PO DAILY 90 Days Patient Comments: aspirin [Adult Low Dose Aspirin] 81 mg tablet,delayed release (DR/EC) 81 mg PO HS Hold Instructions: Resume on 07/17/23. carvedilol 6.25 mg tablet 6.25 mg PO BID 90 Days Qty: 90 Patient Comments: lisinopril 40 mg tablet 40 mg PO DAILY cyanocobalamin (vitamin B-12) 1,000 mcg capsule 1,000 mcg PO DAILY oxybutynin chloride 10 mg tablet extended release 24hr 10 mg PO DAILY Patient Comments: TAKE 1 TABLET BY MOUTH ONCE DAILY amlodipine 5 mg tablet 5 mg PO DAILY Patient Comments: TAKE 1 TABLET BY MOUTH ONCE DAILY omeprazole 40 mg capsule,delayed release(DR/EC) 40 mg PO DAILY Patient Comments: TAKE 1 CAPSULE BY MOUTH ONCE DAILY ergocalciferol (vitamin D2) 1,250 mcg (50,000 unit) capsule 1,250 mcg PO WEEKLY Patient Comments: TAKE 1 CAPSULE BY MOUTH ONCE A WEEK FOR 28 DAYS Referrals Follow up/Referrals: Alfa Ramirez MD [Primary Care Provider] - See instructions Clinical Impressions Clinical Impression: Abscess, hepatic, COVID-19, Hypoxic respiratory failure Discharge ED Provider: Pravin Robles General Adult HPI General Chief complaint: Weakness Stated complaint: Weakness Time Seen by Provider: 07/28/23 06:55 Mode of Arrival: EMS Source of Information: Patient and EMS Limitations: No Limitations Description of Symptoms (Recalled from ER Triage Doc. by RN): Patient had gallbladder surgery at recently and states that he contracted COVID. Diagnosed with COVID on 07/24 and has had increasing generalized weakness since. EMS reports that patient was 85% spo2 on room air upon arrival. Family reported to EMS that patient was taken off several medications and has had increased swelling. Family did not report which medications were changed or discontinued. History of Present Illness HPI narrative: Patient is a 83-year-old male past medical history of hypertension, ACS status post stenting, open heart surgery who presents to the emergency department for evaluation of shortness of breath. Patient states that he recently had his gallbladder out and was subsequently diagnosed with COVID on . Since then patient has had worsening shortness of breath, cough, global weakness. No other acute complaints at this time. Related Data Home Medications Medication Instructions Recorded Confirmed aspirin 81 mg tablet,delayed 81 mg PO HS heart health 12/28/17 07/10/23 release (Adult Low Dose Aspirin) levothyroxine 100 mcg tablet 100 mcg PO DAILY hypothyroidism 90 12/28/17 07/10/23 days pravastatin 40 mg tablet 40 mg PO HS Cholesterol 90 days 12/28/17 07/10/23 rivaroxaban 2.5 mg tablet (Xarelto) 2.5 mg PO BIDWMEAL 08/14/18 07/11/23 anticoagulation/hx of bypass carvedilol 6.25 mg tablet 6.25 mg PO BID High blood pressure 12/16/20 07/10/23 90 days #90 tabs cyanocobalamin (vitamin B-12) 1,000 mcg PO DAILY Supplement 02/13/23 07/10/23 1,000 mcg capsule lisinopril 40 mg tablet 40 mg PO DAILY High Blood Pressure 02/13/23 07/10/23 amlodipine 5 mg tablet 5 mg PO DAILY High Blood Pressure 07/11/23 07/11/23 ergocalciferol (vitamin D2) 1,250 1,250 mcg PO WEEKLY Supplement 07/11/23 07/11/23 mcg (50,000 unit) capsule omeprazole 40 mg capsule,delayed 40 mg PO DAILY Acid Reflux 07/11/23 07/11/23 release oxybutynin chloride 10 mg 10 mg PO DAILY Bladder 07/11/23 07/11/23 tablet,extended release 24 hr Allergies Allergy/AdvReac Type Severity Reaction Status Date / Time cephalexin Allergy Unknown I-RASH Verified 02/13/23 09:06 [facility] Disclaimer: The info
--- NOTE | 2023-07-28 07:08 | ECG_ITS ---
APPROVED REPORT Exam: Resting ECG HR:109 bpm ECG Measurements Heart Rate 109 AXES PA 177 P 0 QRSd 86 QRS -4 QT 302 T 52 QTc 366 Conclusion SINUS TACHYCARDIA POSSIBLE ANTERIOR MYOCARDIAL INFARCTION , PROBABLY OLD [30 ms Q WAVE IN V3/V4, OR R < 0.2 mV IN V4] ABNORMAL RHYTHM ECG UNCONFIRMED REPORT Electronically signed by : Malachi Leon MD 07/28/2023 17:04:37
[2023-07-28 07:14] LABS: Basophils % 0.1 % (0.1-2.0); Eosinophils % 0.1 % (0.1-12.0); Hematocrit 29.4 % (42.0-52.0); Hemoglobin 9.9 g/dL (14.1-18.0); Lymphocytes # 0.8 K/mm3 (0.7-4.5); Lymphocytes % 5.1 % (10-50); Mean Corpuscular HGB Conc 33.8 g/dL (31.8-35.4); Mean Corpuscular Hemoglobin 35.5 pg (27.0-31.2); Mean Corpuscular Volume 104.8 fl (80-94); Mean Platelet Volume 8.3 fl (7.4-10.4); Monocytes # 0.4 K/mm3 (0.1-1.0); Monocytes % 2.5 % (1.7-9.3); Neutrophils # 13.8 K/mm3 (1.8-7.8); Neutrophils % 92.3 % (37.0-80.0); Platelet Count 297 K/mm3 (142-424); Red Cell Distribution Width 14.4 % (11.5-17.5)
[2023-07-28 07:17] LABS: Chloride 100 mmol/L (98-107); MANUAL DIFFERENTIAL MANUAL DIFFERENTIAL (MANUAL DIFF); Potassium 3.9 mmoL/L (3.5-5.1); Sodium 131 mmol/L (136-145)
[2023-07-28 07:20] LABS: Alanine Aminotransferase 140 U/L (12-78); Albumin Level 3.2 g/dl (3.5-5.0); Alkaline Phosphatase 194 U/L (38-126); Anion Gap 9.9 mEq/L (5-15); Aspartate Amino Transferase 125 U/L (17-59); Bilirubin,Total 6.9 mg/dl (0.2-1.3); Blood Urea Nitrogen 39 mg/dl (9-20); Carbon Dioxide 25 mmol/L (22.0-30.0); Creatinine Clearance Estimated 44 mL/min (50-200); Estimated Glomerular Filt Rate 45 ml/min (>60); GFR (African American) 54 ML/MIN (>60); Globulin 3.3 g/dL (1.3-3.2); Total Protein,Serum 6.5 g/dl (6.3-8.2)
[2023-07-28 07:21] LABS: Calcium 7.9 mg/dl (8.4-10.2); Glucose 169 mg/dl (74-100)
[2023-07-28 07:30] LABS: NT Pro Brain Natriuretic Pep. 1980 pg/mL (0-450)
[2023-07-28 07:33] LABS: Troponin I < 0.01 ng/ml (0.00-0.034)
[2023-07-28 07:36] LABS: D-Dimer 2.94 ug/mL (0.0-0.5)
--- NOTE | 2023-07-28 07:50 | CT_ITS ---
FINAL REPORT TECHNIQUE: Then section axial CT images of the chest were obtained with contrast. Three-D reformatted images were also obtained.This study was performed with techniques to keep radiation doses as low as reasonably achievable (ALARA). Individualized dose reduction techniques using automated exposure control or adjustment of mA and/or kV according to the patient''s size were employed. CLINICAL HISTORY: covid/tachy/elevated dimer COMPARISON: 07/08/2023 FINDINGS: There is no evidence of pulmonary embolism. There is no evidence of thoracic aortic aneurysm or dissection. The patient has undergone a prior median sternotomy. There is no evidence of mediastinal or hilar mass or adenopathy. Mild bibasilar atelectasis is present. There are multiple small nodules identified bilaterally, mostly stable since the prior CT. There is a new 12 mm right upper lobe nodular opacity with several other smaller adjacent nodules, favor inflammatory. Limited images of the upper abdomen reveal multiple air-fluid level foci within the liver and gallbladder fossa, likely abscesses, discussed in CT of the abdomen and pelvis dictation from 07/28/2023. IMPRESSION: No evidence of pulmonary embolism. Multiple small nodular opacities in the chest as described, mostly stable since the prior CT. New right upper lobe nodular opacity with several other smaller adjacent nodules is likely inflammatory. Follow-up is suggested if clinically indicated. Reviewed, Interpreted and Dictated by Sergio Buckley III, MD Transcribed by Candace Jeronimo Authenticated and [facility]
[2023-07-28 08:00] LABS: VBG Base Excess -3.8 mmol/L (-2.4-2.3); VBG HCO3 21.5 mmol/L (23-30); VBG Oxygen Saturation 62.2 % (50-70); VBG PCO2 37.9 mmol/L (35-51); VBG PH 7.37 mmol/L (7.31-7.41); VBG PO2 33.5 mmol/L (28-40); VBG Total CO2 22.6 mmol/L (23-27)
[2023-07-28 08:02] LABS: Anisocytosis 1+; Hypochromasia 1+; Lymphocytes % 14 % (10-50); Monocytes % 6 % (2-9); Neutrophils % 80 % (42-76); Platelet Estimate Normal; Total Cells Counted 100
--- NOTE | 2023-07-28 08:08 | CT_ITS ---
FINAL REPORT CLINICAL HISTORY: recent ccy, worsening hyperbilirubinemia COMPARISON: 07/09/2023 FINDINGS: CT OF THE ABDOMEN AND PELVIS WITH CONTRAST Axial CT images of the abdomen and pelvis were obtained after the administration of iv contrast. Coronal and sagittal reformatted images were also obtained and reviewed.This study was performed with techniques to keep radiation doses as low as reasonably achievable (ALARA). Individualized dose reduction techniques using automated exposure control or adjustment of mA and/or kV according to the patient's size were employed. Abdomen: Bibasilar atelectasis is present. Since the prior CT there has been interval cholecystectomy. There is an air-fluid collection in the gallbladder fossa, which measures 6.3 x 3.8 cm in size, with adjacent inflammatory change consistent with an abscess. There is a dominant fluid collection in the left hepatic lobe, with an air-fluid level, which measures 8.7 x 6.5 cm in size, also consistent with an abscess. There are several other small fluid collections in the liver as well, also consistent with small abscesses. There is diffuse colonic diverticulosis, and there is significant wall thickening of the hepatic flexure of the colon with adjacent stranding, favor secondary inflammation. The spleen is unremarkable. No adrenal mass is present. 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 The kidneys are normal, without evidence of mass or hydronephrosis. The aorta is normal in caliber. Pelvis: The appendix is not well-visualized. The urinary bladder is remarkable for a small diverticulum. Bilateral inguinal hernias containing fat are once again identified. No inflammatory process is seen. There is no evidence of mass or adenopathy. There is no evidence of bowel obstruction. IMPRESSION: Interval cholecystectomy since the prior CT of July 09. Multiple air-fluid collections are present in the gallbladder fossa and in the liver as described, with a dominant fluid collection in the left hepatic lobe measuring 8.7 cm in greatest diameter, consistent with multiple abscesses. Some of these collections, considerably smaller, were noted in the liver on an abdominal MRI dated July 12. Air-fluid levels were not present at that time. These results were called to Dr. Robles in the emergency room of [facility] 07/28/2023 at 10:15 AM. Multiple pancreatic low densities are once again identified, as described previously may represent cystic neoplasms. Continued follow-up is suggested. Reviewed, Interpreted and Dictated by Sergio Buckley III, MD Transcribed by Candace Jeronimo Authenticated and [facility]
--- NOTE | 2023-07-28 08:20 | PC.NURSE ---
pt had a bm and urine output(unmeasured) pt was Cleaned up by Haley ENCARNACION and Celena assist new stretcher sheet,lluvia brief and warm blanket no other needs
--- NOTE | 2023-07-28 08:32 | PC.NURSE ---
pt to ct scan via stretcher
[2023-07-28 08:43] LABS: Influenza A, PCR Not Detected (NotDetected); Influenza B, PCR Not Detected (NotDetected)
--- NOTE | 2023-07-28 08:45 | PC.NURSE ---
gave guest breakfast tray to pt's
[2023-07-28 08:48] LABS: Bilirubin,Direct 2.3 mg/dl (0.0-0.4); Lipase 56 U/L (23-300)
[2023-07-28 09:05] LABS: Coronavirus 19, PCR Detected (NotDetected)
--- NOTE | 2023-07-28 10:13 | PC.NURSE ---
PT RESTING, UPDATED ON POC. NO NEEDS AT THIS TIME. CALL LIGHT WITHIN REACH
--- NOTE | 2023-07-28 10:21 | PC.NURSE ---
[facility] to be [facility] said he would be placed on a list so asked to speak with surgeon educational program director awaiting call back at this time
--- NOTE | 2023-07-28 10:26 | PC.NURSE ---
Called rad for power share images to voodoo and burn a disc
--- NOTE | 2023-07-28 10:49 | PC.NURSE ---
ASSISTED WITH URINAL
--- NOTE | 2023-07-28 10:58 | PC.NURSE ---
Dr Robles spoke with Dr Rajan awaiting call back with a bed
--- NOTE | 2023-07-28 11:23 | PC.NURSE ---
DR MARTÍNEZ SPEAKING WITH DR HAMILTON
--- NOTE | 2023-07-28 11:32 | PC.NURSE ---
CARE MANAGEMENT NOTIFIED OF ADMISSION
--- NOTE | 2023-07-28 11:59 | EXP.PHA.CONS ---
Pharmacy Consult Date: 07/28/23 Time: 11:59 Referring provider: DR. HAMILTON Reason for Consult:: VANCOMYCIN DOSING Allergies Allergy/AdvReac Type Severity Reaction Status Date / Time cephalexin Allergy Unknown I-RASH Verified 02/13/23 09:06 Home Medications Medication Instructions Recorded Confirmed Type aspirin 81 mg tablet,delayed 81 mg PO HS heart health 12/28/17 07/10/23 History release (Adult Low Dose Aspirin) levothyroxine 100 mcg tablet 100 mcg PO DAILY hypothyroidism 90 12/28/17 07/10/23 History days pravastatin 40 mg tablet 40 mg PO HS Cholesterol 90 days 12/28/17 07/10/23 History rivaroxaban 2.5 mg tablet (Xarelto) 2.5 mg PO BIDWMEAL 08/14/18 07/11/23 History anticoagulation/hx of bypass carvedilol 6.25 mg tablet 6.25 mg PO BID High blood pressure 12/16/20 07/10/23 History 90 days #90 tabs cyanocobalamin (vitamin B-12) 1,000 mcg PO DAILY Supplement 02/13/23 07/10/23 History 1,000 mcg capsule lisinopril 40 mg tablet 40 mg PO DAILY High Blood Pressure 02/13/23 07/10/23 History amlodipine 5 mg tablet 5 mg PO DAILY High Blood Pressure 07/11/23 07/11/23 History ergocalciferol (vitamin D2) 1,250 1,250 mcg PO WEEKLY Supplement 07/11/23 07/11/23 History mcg (50,000 unit) capsule omeprazole 40 mg capsule,delayed 40 mg PO DAILY Acid Reflux 07/11/23 07/11/23 History release oxybutynin chloride 10 mg 10 mg PO DAILY Bladder 07/11/23 07/11/23 History tablet,extended release 24 hr New Prescriptions to Start Prescriptions: Height: 1.7 m Weight: 83.915 kg Laboratory Results:: Laboratory Results - last 24 hr 07/28/23 06:45: WBC 15.0 H, RBC 2.80 L, Hgb 9.9 L, Hct 29.4 L, MCV 104.8 H, MCH 35.5 H, MCHC 33.8, RDW 14.4, Plt Count 297, MPV 8.3, Neut % (Auto) 92.3 H, Lymph % (Auto) 5.1 L, [place] % (Auto) 2.5, Eos % (Auto) 0.1, Baso % (Auto) 0.1, Neut # (Auto) 13.8 H, Lymph # (Auto) 0.8, [place] # (Auto) 0.4, Eos # (Auto) 0.0, Baso # (Auto) 0.0, Total Counted 100, Neutrophils % (Manual) 80 H, Lymphocytes % (Manual) 14, Monocytes % (Manual) 6, Platelet Estimate Normal, Hypochromasia 1+, Anisocytosis 1+, D-Dimer 2.94 H, Sodium 131 L, Potassium 3.9, Chloride 100, Carbon Dioxide 25, Anion Gap 9.9, BUN 39 H, Creatinine 1.50 H, Estimated Creat Clear 44, Estimated GFR 45 L, Est GFR ( Amer) 54 L, Glucose 169 H, Calcium 7.9 L, Total Bilirubin 6.9 H, Direct Bilirubin 2.3 H, AST 125 H, ALT 140 H, Alkaline Phosphatase 194 H, Troponin I < 0.01, NT-Pro-B Natriuret Pep 1980 H, Total Protein 6.5 D, Albumin 3.2 L, Globulin 3.3 H, Albumin/Globulin Ratio 1.0 L, Lipase 56 07/28/23 07:52: VBG pH 7.37, VBG pCO2 37.9, VBG pO2 33.5, VBG HCO3 21.5 L, VBG Total CO2 22.6 L, VBG O2 Saturation 62.2, VBG Base Excess -3.8 L 07/28/23 07:56: SARS-CoV-2 (PCR) Detected A, Influenza A Untype (PCR) Not detected, Influenza Type B (PCR) Not detected Medical History: Medical History (Updated 07/28/23 @ 11:38 by Pravin Robles MD) CAD (coronary artery disease) Cervical disc disease CKD (chronic kidney disease) stage 3, GFR 30-59 ml/min Colon polyps Colon, diverticulosis Facet arthropathy, cervical GERD (gastroesophageal reflux disease) Hard of hearing History of left heart catheterization HTN (hypertension), benign Hyperlipidemia Assessment and Plan Assessment and plan all Dx Assessment and Plan for all problems:: Pharmacokinetic dosing service Objective: Patient: Floor: Age: 83 yo Serum creatinine: 1.5 mg/dL Height: 67.0 Inches Weight (kg): 84 Assessment: IBW (kg): 66.10 Dosing wt(kg): 84 Estimated Creatinine clearance (ml/min): 34.9 CRCL method: Cockcroft and Gault using ibw(default). Drug selected: Vancomycin Loading dose (mg): 0 Vd (liters): 67.2 (factor used: 0.8 L/kg) [place] (hr-1): 0.033 Half life (hrs): 21.00 Recommended dose: 1250 mg Interval: 24 hrs Infusion time (hrs): 2.0 Predicted peak (mcg/mL): 32.9 Pre
--- NOTE | 2023-07-28 12:01 | PC.NURSE ---
Report called to Dominga Tapia RN on Med Surg.
--- NOTE | 2023-07-28 12:54 | PC.NURSE ---
PT ASSISTED WITH URINAL, MODERATE AMOUNT OF DIARRHEA NOTED. PT CLEANED AND DRY BRIEF APPLIED. PT REPOSITIONED IN BED. NO NEEDS VOICED. AT BEDSIDE
--- NOTE | 2023-07-28 13:30 | EXP.HP ---
History of Present Illness *Admission Date: 07/28/23 *History of present illness: In summary patient is a 83-year-old male past medical history described above presents emergency department for evaluation of shortness of breath and suspected COVID-positive status. Patient is hemodynamically stable, tachycardic, tachypneic upon arrival, requiring 2 to 3 L nasal cannula oxygen to maintain oxygenation greater than 90% SPO2. Differential diagnosis includes COVID, superimposed pneumonia, silent ACS among others. Work-up will be conducted with hematologic labs, chest x-ray, EKG, serial troponins, D-dimer, VBG. Initial interventions include 6 mg of dexamethasone. 500 cc ringer crystalloid bolus will be conducted for gentle volume resuscitation. Initial work-up reviewed by me, hematologic labs remarkable for white count of 15 with left shift, elevated D-dimer for which CT PE will be obtained. Worsening hyperbilirubinemia. Chest x-ray informally interpreted by me, right basilar opacity which may be reflective of pneumonia for which levofloxacin will be administered given patient is allergic to cephalosporins. Given worsening hyperbilirubinemia CT abdomen pelvis will be obtained in addition to CT pulmonary embolism protocol. Upon repeat evaluation [id number] ultrasound at bedside shows grossly normal ejection fraction (images were not saved to apartment archive therefore no note is warranted). Given this although patient is extra vascularly volume overloaded will be given an additional 500 cc crystalloid given that he is likely intravascularly deplete. CT imaging of the abdomen and pelvis informally interpreted by me, I have concern for a large multifocal air-fluid collection in the liver which may be underwriting sales representative of abscess given patient's perioperative state. For this after discussion with pharmacy metronidazole will be added in addition to levofloxacin for appropriate coverage. The case was discussed with [facility] surgery Dr. Rajan who accepted patient for transfer, unfortunately they are operating under a wait list at this time for which the case was discussed with [facility] medicine who accepted patient for transfer for which patient is fourth on the list. Case was subsequently discussed with Dr. Ramirez regarding management who recommends broad-spectrum antibiotics, I agree with this given patient's possibility to decompensate. Given this patient will be broadened to vancomycin and Zosyn. Upon repeat evaluation patient continued to be hemodynamically stable, responding well to volume resuscitation. Patient will be admitted to the floor here pending transfer to [facility] for definitive evaluation and management. (above as per ER physician) According to the patient's , he was diagnosed with covid while he was still in the hospital for his gallbladder removal. He still has a cough and weakness. He denies any pain. [facility] Disclaimer: The information contained in this section may have been updated after the patient was seen, as this information can be updated by other users. Medical History CAD (coronary artery disease) Cervical disc disease CKD (chronic kidney disease) stage 3, GFR 30-59 ml/min Colon polyps Colon, diverticulosis Facet arthropathy, cervical GERD (gastroesophageal reflux disease) Hard of hearing History of left heart catheterization HTN (hypertension), benign Hyperlipidemia Surgical History History of cholecystectomy History of colonoscopy History of coronary artery bypass graft History of coronary artery stent placement Hx of myringotomy Family History Heart attack Hypertension Social History (Updated 07/28/23 @ 14:46 by Dominga Tapia RN) Smoking Status: Never smoker alcohol intake: never counseling provided: none substance use type: [place]
--- NOTE | 2023-07-28 14:09 | PC.NURSE ---
arrived to floor by stretcher from ED
--- NOTE | 2023-07-28 18:22 | PC.NURSE ---
Photo by Dieudonne Tapia RN
[2023-07-29] VITALS (16 sets, daily range): BP systolic 109–137; BP diastolic 41–62; PULSE 59–77; RESP 16–18; TEMP 36.3–36.9; O2SAT 96–100; BMI 29.6
--- NOTE | 2023-07-29 06:02 | PC.NURSE ---
Patient has rested well this shift, no acute changes noted. VSS. No call from [facility] at this time. Patient is AOx3, able to make needs known. Remains on 2lnc, lung sounds are clear but diminished at bases. Continues on LR at 75ml/hr no s/sx of complications. It is noted patietn has pitting edema +2-3 in BLE. Surgical sites are C/D/I. Will continue with POC and medsurg protocols.
[2023-07-29 07:35] LABS: Chloride 107 mmol/L (98-107)
[2023-07-29 07:36] LABS: Potassium 3.8 mmoL/L (3.5-5.1); Sodium 133 mmol/L (136-145)
[2023-07-29 07:38] LABS: Alanine Aminotransferase 82 U/L (12-78); Aspartate Amino Transferase 46 U/L (17-59); Bilirubin,Total 3.6 mg/dl (0.2-1.3); Blood Urea Nitrogen 36 mg/dl (9-20); Creatinine Clearance Estimated 64 mL/min (50-200); Estimated Glomerular Filt Rate 64 ml/min (>60); GFR (African American) 77 ML/MIN (>60)
[2023-07-29 07:39] LABS: Albumin Level 2.2 g/dl (3.5-5.0); Albumin/Globulin Ratio 0.8 (1.1-1.8); Alkaline Phosphatase 116 U/L (38-126); Anion Gap 3.8 mEq/L (5-15); Calcium 7.4 mg/dl (8.4-10.2); Carbon Dioxide 26 mmol/L (22.0-30.0); Globulin 2.6 g/dL (1.3-3.2); Glucose 161 mg/dl (74-100); Total Protein,Serum 4.8 g/dl (6.3-8.2)
[2023-07-29 08:22] LABS: Eosinophils % 0.1 % (0.1-12.0); Lymphocytes # 0.8 K/mm3 (0.7-4.5); Lymphocytes % 6.1 % (10-50); Mean Corpuscular HGB Conc 33.2 g/dL (31.8-35.4); Mean Corpuscular Hemoglobin 35.7 pg (27.0-31.2); Mean Corpuscular Volume 107.5 fl (80-94); Mean Platelet Volume 8.2 fl (7.4-10.4); Monocytes # 0.4 K/mm3 (0.1-1.0); Monocytes % 3.2 % (1.7-9.3); Neutrophils # 11.2 K/mm3 (1.8-7.8); Neutrophils % 90.6 % (37.0-80.0); Platelet Count 241 K/mm3 (142-424); Red Blood Count 1.82 M/mm3 (4.60-6.20); Red Cell Distribution Width 14.9 % (11.5-17.5); White Blood Count 12.4 K/mm3 (4.8-10.8)
[2023-07-29 08:25] LABS: Hematocrit 19.6 % (42.0-52.0); Hemoglobin 6.5 g/dL (14.1-18.0)
[2023-07-29 08:32] LABS: MANUAL DIFFERENTIAL MANUAL DIFFERENTIAL (MANUAL DIFF)
--- NOTE | 2023-07-29 08:34 | EXP.ACUTE.PN ---
Subjective *Date: 07/29/23 *Time: 08:34 Interval history: Patient with no new complaints, still has some lower abdominal pain. Medical Exam Vital signs and Labs for Last 24 Hours: Vital Signs Temp Pulse Pulse Resp BP BP Pulse Ox 07/29/23 07:51 98.4 F 69 17 137/53 L 97 07/29/23 04:00 98.5 F 75 16 136/56 L 96 07/29/23 00:00 97.8 F 64 18 112/52 L 96 07/28/23 20:00 98.4 F 77 20 122/58 L 94 L 07/28/23 19:00 07/28/23 18:31 07/28/23 17:00 07/28/23 15:54 97.8 F 66 18 107/46 L 96 07/28/23 15:00 07/28/23 15:00 98 F 82 24 106/53 L 99 07/28/23 12:30 82 17 98/52 L 97 07/28/23 12:00 80 15 95/48 L 96 07/28/23 12:24 97.9 F 82 15 101/58 L 07/28/23 11:30 83 18 99/46 L 92 L 07/28/23 10:30 84 16 123/55 L 98 07/28/23 10:00 85 18 119/56 L 98 07/28/23 09:30 94 H 18 115/49 L 99 07/28/23 09:00 96 H 18 109/44 L 98 O2 Del Method O2 Flow Rate 07/29/23 07:51 Nasal Cannula 2 07/29/23 04:00 Nasal Cannula 2 07/29/23 00:00 Nasal Cannula 2 07/28/23 20:00 Nasal Cannula 2 07/28/23 19:00 Nasal Cannula 2 07/28/23 18:31 Nasal Cannula 2 07/28/23 17:00 Nasal Cannula 2 07/28/23 15:54 Nasal Cannula 2 07/28/23 15:00 Nasal Cannula 2 07/28/23 15:00 Nasal Cannula 2 07/28/23 12:30 07/28/23 12:00 07/28/23 12:24 Nasal Cannula 2 07/28/23 11:30 07/28/23 10:30 Nasal Cannula 2 07/28/23 10:00 Nasal Cannula 2 07/28/23 09:30 Nasal Cannula 2 07/28/23 09:00 Nasal Cannula 2 Intake and Output 07/28/23 07/29/23 07/29/23 23:59 07:59 15:59 Intake Total 1640 / 1640 Output Total 0 / 200 200 / 200 Balance 0 / 2770 1440 / 1440 Intake: Intake, Oral Amount 590 / 590 Intake, Total IV Amount 1050 / 1050 Lactated Ringers 1000ML 1,000 900 / 900 ml @ 75 mls/hr IV .[id number] [facility] Rx#:[id number] Piperacillin/Tazo 3.375 gm In 0 150 / 150 .9 % Sodium Chloride 50 ml @ 100 mls/hr IV Q6H [facility] Rx#: [id number] Output: Output, Urine Amount 0 / 200 200 / 200 Other: Number of Unmeasured Voids 1 1 Number of Bowel Movements 1 Weight 195 lb 8 oz Patient Weight 07/29/23 23:59 Weight 195 lb 8 oz Laboratory Results - last 24 hr 07/28/23 06:45: Direct Bilirubin 2.3 H, Lipase 56 07/28/23 07:56: SARS-CoV-2 (PCR) Detected A, Influenza A Untype (PCR) Not detected, Influenza Type B (PCR) Not detected 07/29/23 07:01: WBC 12.4 H, RBC 1.82 L* D, Hgb 6.5 L*, Hct 19.6 L*, MCV 107.5 H, MCH 35.7 H, MCHC 33.2, RDW 14.9, Plt Count 241, MPV 8.2, Neut % (Auto) 90.6 H, Lymph % (Auto) 6.1 L, [place] % (Auto) 3.2, Eos % (Auto) 0.1, Baso % (Auto) 0.0 L, Neut # (Auto) 11.2 H, Lymph # (Auto) 0.8, [place] # (Auto) 0.4, Eos # (Auto) 0.0, Baso # (Auto) 0.0, Sodium 133 L, Potassium 3.8, Chloride 107, Carbon Dioxide 26, Anion Gap 3.8 L, BUN 36 H, Creatinine 1.10 D, Estimated Creat Clear 64, Estimated GFR 64, Est GFR ( Amer) 77 D, Glucose 161 H, Calcium 7.4 L, Total Bilirubin 3.6 H, AST 46 D, ALT 82 H D, Alkaline Phosphatase 116, Total Protein 4.8 L D, Albumin 2.2 L D, Globulin 2.6, Albumin/Globulin Ratio 0.8 L I & O for Labs for Last 24 Hours: Intake & Output 07/26/23 07/27/23 07/28/23 07/29/23 23:59 23:59 23:59 23:59 Intake Total 2800 / 2970 1640 / 1640 Output Total 0 / 200 200 / 200 Balance 2800 / 2770 1440 / 1440 Weight 196 lb 3 oz 195 lb 8 oz Constitutional: Present no acute distress Respiratory: Present CTA bilaterally and normal respiratory effort Cardiac: Present Reg Rate and Rhythm GI: Present tenderness (RLQ, RMQ) and normal bowel sounds Extremities: Present normal inspection, full ROM and edema (Trace bilateral LE's) Skin: Present intact; Absent erythema Neuro: Present Grossly Intact and moves all extremities Assessment and Plan *Assessment and plan (1) Abscess, hepatic: Status: Acute Category: Medical Code(s):
[2023-07-29 11:36] LABS: Lymphocytes % 6 % (10-50); Macrocytosis 2+; Monocytes % 1 % (2-9); Neutrophils % 93 % (42-76); Platelet Estimate Normal; Total Cells Counted 100
--- NOTE | 2023-07-29 18:51 | PC.NURSE ---
Patient received IV antibiotics and 1 unit of blood. RN spoke with [facility] and they do not have a bed for the patient at this time.
[2023-07-29 20:34] LABS: Hematocrit 20.2 % (42.0-52.0); Hemoglobin 6.9 g/dL (14.1-18.0)
[2023-07-30 04:00] VITALS: BMI 29.5
--- NOTE | 2023-07-30 04:20 | PC.NURSE ---
Patient has had a good night. did get to rest some through the night. Has been incontinent mostly through the night. H&H was critical results were told to Dr. Leon pharmacy operations manager for [place]. No orders to transfuse at this time. Patient remains on 2L NC stats well with that. Has not complained of pain or nausea at all. No other issues noted
[2023-07-30 04:33] VITALS: BP 135/59; PULSE 63; RESP 16; TEMP 36.8; O2SAT 97
[2023-07-30 07:40] VITALS: BP 148/69; PULSE 71; RESP 18; TEMP 37.1; O2SAT 96
--- NOTE | 2023-07-30 08:20 | PC.NURSE ---
[address] Leon for cbc and cmp this am
[2023-07-30 09:07] LABS: Chloride 107 mmol/L (98-107); Potassium 3.9 mmoL/L (3.5-5.1); Sodium 134 mmol/L (136-145)
[2023-07-30 09:10] LABS: Alanine Aminotransferase 61 U/L (12-78); Albumin Level 2.2 g/dl (3.5-5.0); Albumin/Globulin Ratio 0.8 (1.1-1.8); Alkaline Phosphatase 108 U/L (38-126); Anion Gap 7.9 mEq/L (5-15); Aspartate Amino Transferase 30 U/L (17-59); Basophils % 0.1 % (0.1-2.0); Bilirubin,Total 1.2 mg/dl (0.2-1.3); Blood Urea Nitrogen 26 mg/dl (9-20); Carbon Dioxide 23 mmol/L (22.0-30.0); Creatinine Clearance Estimated 70 mL/min (50-200); Eosinophils # 0.1 K/mm3 (0.0-0.4); Eosinophils % 0.6 % (0.1-12.0); Estimated Glomerular Filt Rate 71 ml/min (>60); GFR (African American) 86 ML/MIN (>60); Globulin 2.7 g/dL (1.3-3.2); Hematocrit 22.6 % (42.0-52.0); Lymphocytes % 11.5 % (10-50); Mean Corpuscular HGB Conc 33.4 g/dL (31.8-35.4); Mean Corpuscular Hemoglobin 33.7 pg (27.0-31.2); Mean Corpuscular Volume 100.9 fl (80-94); Mean Platelet Volume 8.1 fl (7.4-10.4); Monocytes # 0.4 K/mm3 (0.1-1.0); Monocytes % 4.8 % (1.7-9.3); Neutrophils % 83.1 % (37.0-80.0); Platelet Count 226 K/mm3 (142-424); Red Blood Count 2.24 M/mm3 (4.60-6.20); Red Cell Distribution Width 19.8 % (11.5-17.5); Total Protein,Serum 4.9 g/dl (6.3-8.2); White Blood Count 8.4 K/mm3 (4.8-10.8)
[2023-07-30 09:11] LABS: Calcium 7.3 mg/dl (8.4-10.2); Glucose 128 mg/dl (74-100)
--- NOTE | 2023-07-30 09:14 | EXP.ACUTE.PN ---
Subjective *Date: 07/30/23 *Time: 09:14 Interval history: Patient with no new complaints today, abd pain is slightly better. Medical Exam Vital signs and Labs for Last 24 Hours: Vital Signs Temp Pulse Pulse Resp BP BP Pulse Ox 07/30/23 07:40 98.8 F 71 18 148/69 H 96 07/30/23 04:33 98.2 F 63 16 135/59 L 97 07/30/23 06:46 07/30/23 05:00 07/30/23 03:00 07/30/23 01:00 07/29/23 23:59 98.2 F 59 L 18 126/41 L 99 07/29/23 23:00 07/29/23 21:00 07/29/23 20:00 07/29/23 19:54 98.3 F 64 16 109/46 L 97 07/29/23 15:57 98.2 F 72 16 129/62 100 07/29/23 14:57 98.4 F 68 17 131/54 L 99 07/29/23 14:30 97.8 F 76 16 133/54 L 98 07/29/23 13:30 97.4 F L 77 17 128/56 L 99 07/29/23 13:15 98.2 F 71 16 136/53 L 100 07/29/23 13:00 98.3 F 74 18 119/47 L 98 07/29/23 12:45 98.1 F 72 17 129/48 L 99 07/29/23 12:40 98.2 F 66 18 117/49 L 100 07/29/23 12:35 98 F 70 16 122/46 L 99 07/29/23 12:30 97.6 F 72 18 120/47 L 100 07/29/23 12:28 97.5 F L 67 16 124/55 L 100 O2 Del Method O2 Flow Rate 07/30/23 07:40 Nasal Cannula 2 07/30/23 04:33 Nasal Cannula 2 07/30/23 06:46 Nasal Cannula 2 07/30/23 05:00 Nasal Cannula 2 07/30/23 03:00 Nasal Cannula 2 07/30/23 01:00 Nasal Cannula 2 07/29/23 23:59 Nasal Cannula 2 07/29/23 23:00 Nasal Cannula 2 07/29/23 21:00 Room Air 07/29/23 20:00 Nasal Cannula 2 07/29/23 19:54 Nasal Cannula 2 07/29/23 15:57 07/29/23 14:57 07/29/23 14:30 07/29/23 13:30 07/29/23 13:15 07/29/23 13:00 07/29/23 12:45 07/29/23 12:40 07/29/23 12:35 07/29/23 12:30 07/29/23 12:28 Intake and Output 07/29/23 07/30/23 07/30/23 23:59 07:59 15:59 Intake Total 240 / 2300 520 / 520 Output Total 0 / 200 0 / 0 Balance 240 / 2100 520 / 520 Intake: Intake, Oral Amount 240 / 950 470 / 470 Intake, Total IV Amount 50 / 50 Piperacillin/Tazo 3.375 gm In 0 50 / 50 .9 % Sodium Chloride 50 ml @ 100 mls/hr IV Q6H [facility] Rx#: [id number] Output: Output, Urine Amount 0 / 200 0 / 0 Other: Number of Unmeasured Voids 1 1 Number of Bowel Movements 1 Weight 195 lb 3 oz Patient Weight 07/30/23 23:59 Weight 195 lb 3 oz Laboratory Results - last 24 hr 07/29/23 07:01: Total Counted 100, Neutrophils % (Manual) 93 H, Lymphocytes % (Manual) 6 L, Monocytes % (Manual) 1 L, Platelet Estimate Normal, RBC Morphology Not Reportable, Macrocytosis 2+ 07/29/23 08:05: Blood Type Confirm A Positive 07/29/23 09:06: Blood Type A Positive, Antibody Screen Negative, Crossmatch (AHG) See Detail 07/29/23 20:00: Hgb 6.9 L, Hct 20.2 L* 07/30/23 08:33: WBC 8.4 D, RBC 2.24 L, Hct 22.6 L, MCV 100.9 H, MCH 33.7 H, MCHC 33.4, RDW 19.8 H D, Plt Count 226, MPV 8.1, Neut % (Auto) 83.1 H, Lymph % (Auto) 11.5, [place] % (Auto) 4.8, Eos % (Auto) 0.6, Baso % (Auto) 0.1, Neut # (Auto) 7.0, Lymph # (Auto) 1.0, [place] # (Auto) 0.4, Eos # (Auto) 0.1, Baso # (Auto) 0.0, Sodium 134 L, Potassium 3.9, Chloride 107, Carbon Dioxide 23, Anion Gap 7.9, BUN 26 H D, Creatinine 1.00, Estimated Creat Clear 70, Estimated GFR 71, Est GFR ( Amer) 86, Glucose 128 H, Calcium 7.3 L, Total Bilirubin 1.2, AST 30 D, ALT 61 D, Alkaline Phosphatase 108, Total Protein 4.9 L, Albumin 2.2 L, Globulin 2.7, Albumin/Globulin Ratio 0.8 L I & O for Labs for Last 24 Hours: Intake & Output 07/27/23 07/28/23 07/29/23 07/30/23 23:59 23:59 23:59 23:59 Intake Total 2800 / 2970 2250 / 2300 520 / 520 Output Total 0 / 200 200 / 200 0 / 0 Balance 2800 / 2770 2050 / 2100 520 / 520 Weight 196 lb 3 oz 195 lb 8 oz 195 lb 3 oz Microbiology Reports for the Last 24 Hours: Microbiology 07/28/23 06:50 Blood Blood Culture - Preliminary 07/28/23 06:45 Blood Blood Culture - Preliminary Constitutional: Present no acute distress Respiratory: Pre
[2023-07-30 09:23] LABS: Hemoglobin 7.5 g/dL (14.1-18.0)
[2023-07-30 11:27] VITALS: BP 112/70; PULSE 78; RESP 18; TEMP 37; O2SAT 99
[2023-07-30 14:24] VITALS: BMI 29.5
[2023-07-30 15:54] VITALS: BP 112/57; PULSE 81; RESP 17; TEMP 36.8; O2SAT 95
[2023-07-30 20:00] VITALS: BP 131/57; PULSE 80; RESP 18; TEMP 36.9; O2SAT 98
[2023-07-31] VITALS (7 sets, daily range): BP systolic 85–136; BP diastolic 48–64; PULSE 74–94; RESP 16–21; TEMP 36.4–37; O2SAT 97–99; BMI 29.5
--- NOTE | 2023-07-31 03:51 | PC.NURSE ---
VS stable, patient remained on 2LNC. No pain reported accept for some tenderness on palpation of abdomen. IV antibiotics given.
[2023-07-31 07:32] LABS: Chloride 105 mmol/L (98-107); Potassium 4.3 mmoL/L (3.5-5.1); Sodium 133 mmol/L (136-145)
[2023-07-31 07:35] LABS: Alanine Aminotransferase 50 U/L (12-78); Albumin Level 2.3 g/dl (3.5-5.0); Albumin/Globulin Ratio 0.9 (1.1-1.8); Alkaline Phosphatase 111 U/L (38-126); Anion Gap 8.3 mEq/L (5-15); Aspartate Amino Transferase 29 U/L (17-59); Bilirubin,Total 1.4 mg/dl (0.2-1.3); Blood Urea Nitrogen 19 mg/dl (9-20); Carbon Dioxide 24 mmol/L (22.0-30.0); Creatinine Clearance Estimated 70 mL/min (50-200); Estimated Glomerular Filt Rate 71 ml/min (>60); GFR (African American) 86 ML/MIN (>60); Globulin 2.5 g/dL (1.3-3.2); Total Protein,Serum 4.8 g/dl (6.3-8.2)
[2023-07-31 07:36] LABS: Calcium 7.5 mg/dl (8.4-10.2); Glucose 77 mg/dl (74-100)
--- NOTE | 2023-07-31 08:26 | EXP.ACUTE.PN ---
Subjective *Date: 07/31/23 *Time: 09:00 Interval history: States he does not feel well today. He was awake most the night coughing. His is just given him a dose of home Promethazine DM. He is slightly tearful. He denies chest pain. Cough is nonproductive. He has some abdominal discomfort but no nausea. He was able to eat a little breakfast. He has ambulated in the room. He is voiding QS too much . He wants to go home. Blood pressure was noted to be low this morning at 85/48. Medical Exam Vital signs and Labs for Last 24 Hours: Vital Signs Temp Pulse Resp BP Pulse Ox O2 Del Method O2 Flow Rate 07/31/23 08:00 98.5 F 90 21 85/48 L 97 Nasal Cannula 07/31/23 06:33 Nasal Cannula 2 07/31/23 05:02 Room Air 07/31/23 04:00 98.6 F 80 18 127/64 99 Nasal Cannula 2 07/31/23 02:59 Nasal Cannula 2 07/31/23 01:02 Nasal Cannula 2 07/31/23 00:00 98.3 F 74 16 131/63 99 Nasal Cannula 2 07/30/23 23:02 Nasal Cannula 2 07/30/23 20:56 Nasal Cannula 2 07/30/23 20:34 Nasal Cannula 2 07/30/23 20:00 98.5 F 80 18 131/57 L 98 Nasal Cannula 2 07/30/23 18:17 Nasal Cannula 2 07/30/23 17:00 Nasal Cannula 2 07/30/23 15:54 98.3 F 81 17 112/57 L 95 Nasal Cannula 2 07/30/23 15:00 Room Air 07/30/23 13:00 Room Air 07/30/23 11:00 Nasal Cannula 2 07/30/23 11:27 98.6 F 78 18 112/70 99 Nasal Cannula 2 07/30/23 09:00 Nasal Cannula 2 Intake and Output 07/30/23 07/31/23 07/31/23 19:59 03:59 11:59 Intake Total 2960 / 2960 137 / 3097 120 / 3217 Output Total 0 / 0 0 / 0 Balance 2960 / 2960 137 / 3097 120 / 3217 Intake: Intake, Oral Amount 940 / 940 120 / 1060 Intake, Total IV Amount 137 / 137 Lactated Ringers 1000ML 1,000 137 / 137 ml @ 75 mls/hr IV .[id number] [facility] Rx#:[id number] Infusion Intake 2019 Lactated Ringers 1000ML 1,000 2019 ml @ 75 mls/hr IV .[id number] [facility] Rx#:[id number] Output: Output, Urine Amount 0 / 0 0 / 0 Other: Number of Voids 0 Number of Unmeasured Voids 2 1 1 Number of Bowel Movements 1 1 0 Weight 195 lb 2.804 oz 195 lb 1 oz Patient Weight 07/31/23 11:59 Weight 195 lb 1 oz Laboratory Results - last 24 hr 07/30/23 08:33: WBC 8.4 D, RBC 2.24 L, Hgb 7.5 L, Hct 22.6 L, MCV 100.9 H, MCH 33.7 H, MCHC 33.4, RDW 19.8 H D, Plt Count 226, MPV 8.1, Neut % (Auto) 83.1 H, Lymph % (Auto) 11.5, [place] % (Auto) 4.8, Eos % (Auto) 0.6, Baso % (Auto) 0.1, Neut # (Auto) 7.0, Lymph # (Auto) 1.0, [place] # (Auto) 0.4, Eos # (Auto) 0.1, Baso # (Auto) 0.0, Sodium 134 L, Potassium 3.9, Chloride 107, Carbon Dioxide 23, Anion Gap 7.9, BUN 26 H D, Creatinine 1.00, Estimated Creat Clear 70, Estimated GFR 71, Est GFR ( Amer) 86, Glucose 128 H, Calcium 7.3 L, Total Bilirubin 1.2, AST 30 D, ALT 61 D, Alkaline Phosphatase 108, Total Protein 4.9 L, Albumin 2.2 L, Globulin 2.7, Albumin/Globulin Ratio 0.8 L 07/31/23 06:42: Sodium 133 L, Potassium 4.3, Chloride 105, Carbon Dioxide 24, Anion Gap 8.3, BUN 19 D, Creatinine 1.00, Estimated Creat Clear 70, Estimated GFR 71, Est GFR ( Amer) 86, Glucose 77 D, Calcium 7.5 L, Total Bilirubin 1.4 H, AST 29, ALT 50, Alkaline Phosphatase 111, Total Protein 4.8 L, Albumin 2.3 L, Globulin 2.5, Albumin/Globulin Ratio 0.9 L I & O for Labs for Last 24 Hours: Intake & Output 07/28/23 07/29/23 07/30/23 07/31/23 11:59 11:59 11:59 11:59 Intake Total 4440 / 4440 1130 / 1130 3217 / 3217 Output Total 200 / 200 0 / 0 0 / 0 Balance 4240 / 4240 1130 / 1130 3217 / 3217 Weight 185 lb 195 lb 8 oz 195 lb 3 oz 195 lb 1 oz Microbiology Reports for the Last 24 Hours: Microbiology 07/28/23 06:50 Blood Blood Culture - Preliminary 07/28/23 06:45 Blood Blood Culture - Preliminary Constitutional: Present no acute distress Comment:: Sitting up in the chair with and son at bedside. Infrequent cough not
[2023-07-31 08:34] LABS: Basophils % 0.1 % (0.1-2.0); Eosinophils # 0.1 K/mm3 (0.0-0.4); Eosinophils % 1.5 % (0.1-12.0); Hematocrit 26.5 % (42.0-52.0); Lymphocytes # 1.2 K/mm3 (0.7-4.5); Lymphocytes % 12.7 % (10-50); Mean Corpuscular Hemoglobin 33.5 pg (27.0-31.2); Mean Corpuscular Volume 101.5 fl (80-94); Mean Platelet Volume 8.6 fl (7.4-10.4); Monocytes # 0.6 K/mm3 (0.1-1.0); Neutrophils # 7.3 K/mm3 (1.8-7.8); Neutrophils % 79.7 % (37.0-80.0); Platelet Count 241 K/mm3 (142-424); Red Blood Count 2.62 M/mm3 (4.60-6.20); Red Cell Distribution Width 19.2 % (11.5-17.5); White Blood Count 9.2 K/mm3 (4.8-10.8)
[2023-07-31 08:47] LABS: Hemoglobin 8.8 g/dL (14.1-18.0)
--- NOTE | 2023-07-31 09:01 | EXP.PHA.PN ---
Subjective *Date: 07/31/23 *Time: 09:01 Medical Exam Vital signs and Labs for Last 24 Hours: Vital Signs Temp Pulse Resp BP Pulse Ox O2 Del Method O2 Flow Rate 07/31/23 08:00 Nasal Cannula 2 07/31/23 08:00 98.5 F 90 21 85/48 L 97 Nasal Cannula 07/31/23 06:33 Nasal Cannula 2 07/31/23 05:02 Room Air 07/31/23 04:00 98.6 F 80 18 127/64 99 Nasal Cannula 2 07/31/23 02:59 Nasal Cannula 2 07/31/23 01:02 Nasal Cannula 2 07/31/23 00:00 98.3 F 74 16 131/63 99 Nasal Cannula 2 07/30/23 23:02 Nasal Cannula 2 07/30/23 20:56 Nasal Cannula 2 07/30/23 20:34 Nasal Cannula 2 07/30/23 20:00 98.5 F 80 18 131/57 L 98 Nasal Cannula 2 07/30/23 18:17 Nasal Cannula 2 07/30/23 17:00 Nasal Cannula 2 07/30/23 15:54 98.3 F 81 17 112/57 L 95 Nasal Cannula 2 07/30/23 15:00 Room Air 07/30/23 13:00 Room Air 07/30/23 11:00 Nasal Cannula 2 07/30/23 11:27 98.6 F 78 18 112/70 99 Nasal Cannula 2 Intake and Output 07/30/23 07/31/23 07/31/23 23:59 07:59 15:59 Intake Total 2627 / 7 120 / 120 Output Total 0 / 0 0 / 0 0 / 0 Balance 2626 / 7 0 / 120 120 / 120 Intake: Intake, Oral Amount 470 / 1410 120 / 120 Intake, Total IV Amount 137 / 187 Lactated Ringers 1000ML 1,000 137 / 137 ml @ 75 mls/hr IV .[id number] [facility] Rx#:[id number] Infusion Intake 2019 Lactated Ringers 1000ML 1,000 2019 ml @ 75 mls/hr IV .[id number] [facility] Rx#:[id number] Output: Output, Urine Amount 0 / 0 0 / 0 0 / 0 Other: Number of Voids 0 Number of Unmeasured Voids 2 1 Number of Bowel Movements 1 1 0 Weight 88.479 kg Patient Weight 07/31/23 23:59 Weight 88.479 kg Laboratory Results - last 24 hr 07/30/23 08:33: WBC 8.4 D, RBC 2.24 L, Hgb 7.5 L, Hct 22.6 L, MCV 100.9 H, MCH 33.7 H, MCHC 33.4, RDW 19.8 H D, Plt Count 226, MPV 8.1, Neut % (Auto) 83.1 H, Lymph % (Auto) 11.5, Shasta % (Auto) 4.8, Eos % (Auto) 0.6, Baso % (Auto) 0.1, Neut # (Auto) 7.0, Lymph # (Auto) 1.0, [place]asta # (Auto) 0.4, Eos # (Auto) 0.1, Baso # (Auto) 0.0, Sodium 134 L, Potassium 3.9, Chloride 107, Carbon Dioxide 23, Anion Gap 7.9, BUN 26 H D, Creatinine 1.00, Estimated Creat Clear 70, Estimated GFR 71, Est GFR ( Amer) 86, Glucose 128 H, Calcium 7.3 L, Total Bilirubin 1.2, AST 30 D, ALT 61 D, Alkaline Phosphatase 108, Total Protein 4.9 L, Albumin 2.2 L, Globulin 2.7, Albumin/Globulin Ratio 0.8 L 07/31/23 06:10: WBC 9.2, RBC 2.62 L, Hgb 8.8 L D, Hct 26.5 L, MCV 101.5 H, MCH 33.5 H, MCHC 33.0, RDW 19.2 H, Plt Count 241, MPV 8.6, Neut % (Auto) 79.7, Lymph % (Auto) 12.7, Shasta % (Auto) 6.0, Eos % (Auto) 1.5, Baso % (Auto) 0.1, Neut # (Auto) 7.3, Lymph # (Auto) 1.2, Shasta # (Auto) 0.6, Eos # (Auto) 0.1, Baso # (Auto) 0.0 07/31/23 06:42: Sodium 133 L, Potassium 4.3, Chloride 105, Carbon Dioxide 24, Anion Gap 8.3, BUN 19 D, Creatinine 1.00, Estimated Creat Clear 70, Estimated GFR 71, Est GFR ( Amer) 86, Glucose 77 D, Calcium 7.5 L, Total Bilirubin 1.4 H, AST 29, ALT 50, Alkaline Phosphatase 111, Total Protein 4.8 L, Albumin 2.3 L, Globulin 2.5, Albumin/Globulin Ratio 0.9 L I & O for Labs for Last 24 Hours: Intake & Output 07/28/23 07/29/23 07/30/23 07/31/23 23:59 23:59 23:59 23:59 Intake Total 2800 / 2970 2250 / 2300 3617 / 3617 120 / 120 Output Total 0 / 200 200 / 200 0 / 0 0 / 0 Balance 2800 / 2770 2050 / 2100 3617 / 3617 120 / 120 Weight 88.989 kg 88.677 kg 88.53 kg 88.479 kg Microbiology Reports for the Last 24 Hours: Microbiology 07/28/23 06:50 Blood Blood Culture - Preliminary 07/28/23 06:45 Blood Blood Culture - Preliminary The patient's infection will respond to the chosen ABx?: Yes (WHITE COUNT NORMAL, AFEBRILE, BLOOD CULTURE NO GROWTH) Is the patient receiving the right drug, dose, and route?: Yes Could a more targeted ABx be ordered?: No
[2023-07-31 11:20] LABS: Vancomycin,Trough 9.2 ug/mL (5.0-10.0)
--- NOTE | 2023-07-31 11:37 | EXP.PHA.CONS ---
Pharmacy Consult Date: 07/31/23 Time: 11:38 Referring provider: DR. RAMIREZ Reason for Consult:: VANCOMYCIN LEVEL Allergies Allergy/AdvReac Type Severity Reaction Status Date / Time cephalexin Allergy Unknown I-RASH Verified 02/13/23 09:06 Home Medications Medication Instructions Recorded Confirmed Type aspirin 81 mg tablet,delayed 81 mg PO HS heart health 12/28/17 07/28/23 History release (Adult Low Dose Aspirin) levothyroxine 100 mcg tablet 100 mcg PO DAILY hypothyroidism 90 12/28/17 07/28/23 History days pravastatin 40 mg tablet 40 mg PO HS Cholesterol 90 days 12/28/17 07/28/23 History rivaroxaban 2.5 mg tablet (Xarelto) 2.5 mg PO BIDWMEAL 08/14/18 07/28/23 History anticoagulation/hx of bypass carvedilol 6.25 mg tablet 6.25 mg PO BID High blood pressure 12/16/20 07/28/23 History 90 days #90 tabs cyanocobalamin (vitamin B-12) 1,000 mcg PO DAILY Supplement 02/13/23 07/28/23 History 1,000 mcg capsule ergocalciferol (vitamin D2) 1,250 1,250 mcg PO WEEKLY Supplement 07/11/23 07/28/23 History mcg (50,000 unit) capsule omeprazole 40 mg capsule,delayed 40 mg PO DAILY Acid Reflux 07/11/23 07/28/23 History release oxybutynin chloride 10 mg 10 mg PO DAILY Bladder 07/11/23 07/28/23 History tablet,extended release 24 hr amlodipine 5 mg tablet 5 mg PO DAILY Hypertension 07/29/23 07/29/23 History lisinopril 40 mg tablet 40 mg PO DAILY Hypertension 07/29/23 07/29/23 History New Prescriptions to Start Prescriptions: Height: 1.73 m Weight: 88.479 kg Laboratory Results:: Laboratory Results - last 24 hr 07/31/23 06:10: WBC 9.2, RBC 2.62 L, Hgb 8.8 L D, Hct 26.5 L, MCV 101.5 H, MCH 33.5 H, MCHC 33.0, RDW 19.2 H, Plt Count 241, MPV 8.6, Neut % (Auto) 79.7, Lymph % (Auto) 12.7, Terry % (Auto) 6.0, Eos % (Auto) 1.5, Baso % (Auto) 0.1, Neut # (Auto) 7.3, Lymph # (Auto) 1.2, Terry # (Auto) 0.6, Eos # (Auto) 0.1, Baso # (Auto) 0.0 07/31/23 06:42: Sodium 133 L, Potassium 4.3, Chloride 105, Carbon Dioxide 24, Anion Gap 8.3, BUN 19 D, Creatinine 1.00, Estimated Creat Clear 70, Estimated GFR 71, Est GFR ( Amer) 86, Glucose 77 D, Calcium 7.5 L, Total Bilirubin 1.4 H, AST 29, ALT 50, Alkaline Phosphatase 111, Total Protein 4.8 L, Albumin 2.3 L, Globulin 2.5, Albumin/Globulin Ratio 0.9 L 07/31/23 10:10: Vancomycin Trough 9.2 Medical History: Medical History (Updated 07/29/23 @ 08:35 by Alfa Ramirez MD) CAD (coronary artery disease) Cervical disc disease CKD (chronic kidney disease) stage 3, GFR 30-59 ml/min Colon polyps Colon, diverticulosis Facet arthropathy, cervical GERD (gastroesophageal reflux disease) Hard of hearing History of left heart catheterization HTN (hypertension), benign Hyperlipidemia Assessment and Plan Assessment and plan all Dx Assessment and Plan for all problems:: PATIENT'S VANCOMYCIN TROUGH LEVEL WAS 9.2 MCG/ML. PATIENT HAS BEEN GETTING VANCOMYCIN 1250 MG Q24H @1100 SINCE 08/28/23. RECOMMEND INCREASING DOSE TO VANCOMYCIN 1500 MG Q24H STARTING TODAY.
--- NOTE | 2023-07-31 13:00 | PC.WOUNDNOTE ---
1.5 cm stage 1 wound on bilateral buttocks. Mepalex dressing applied.
--- NOTE | 2023-07-31 13:55 | HMH.SLDYSPHA ---
Speech & Language Evaluation Speech/Language Dysphagia Evaluation Start: 07/31/23 13:45 Freq: ONCE Status: Active Protocol: Document 07/31/23 13:45 KIMRENÉE (Rec: 07/31/23 13:55 ANANTH [id number]) Dysphagia Assess/Goals/Plan Assessment Date of Evaluation: 07/31/23 Evaluation Type Initial Certification Assessment/Problems Aspiration risk per MD order Does Patient Qualify for Service Yes Qualify/Failure Comment Based on clinical observations made during the bedside swallow evaluation, Mr. Hilliard' olga lidia mastication and swallowing appear to be WFL with no overt s/sxs of aspiration observed. No further skilled speech therapy services are warranted at this time. Recommendations PHYSICIAN CERTIFICATION: The specified therapy services are required, authorized, and reviewed every 30 days. Diet Recommendations Normal Liquid Type Recommendations Normal/Thin SL Swallow Guidelines Standard Aspiration Prec.,Eat at slow rate Dysphagia Swallow Precautions/Strategies Sitting Upright (90 deg),Small Bites and Sips,Alternate Liquids/Solids Place Food on Either side of Mouth Plan Pt/Guardian verbally ack understanding Yes of dx/prognosis/goals G -code Required No Education Instructions provided Discussed clinical observations made during bedside swallow evaluation, diet recommendations, and standard aspiration precautions/compensatory strategies with nursing, pt and family, care management, and MD all of which expressed understanding. 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 Patient is hemodynamically stable,
[2023-08-01] VITALS: BP 108/46; PULSE 82; RESP 20; TEMP 36.8; O2SAT 97
[2023-08-01 04:00] VITALS: BP 129/53; PULSE 81; RESP 18; TEMP 36.8; O2SAT 97; BMI 28.8
--- NOTE | 2023-08-01 05:24 | PC.NURSE ---
no events through the night. 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 awaiting bed to [facility], facility called @ 0400, currently no beds available
[2023-08-01 06:32] LABS: MANUAL DIFFERENTIAL MANUAL DIFFERENTIAL (MANUAL DIFF)
[2023-08-01 06:36] LABS: Basophils % 0.2 % (0.1-2.0); Eosinophils # 0.2 K/mm3 (0.0-0.4); Eosinophils % 2.1 % (0.1-12.0); Hematocrit 21.1 % (42.0-52.0); Hemoglobin 7.1 g/dL (14.1-18.0); Lymphocytes # 1.1 K/mm3 (0.7-4.5); Lymphocytes % 14.6 % (10-50); Mean Corpuscular HGB Conc 33.7 g/dL (31.8-35.4); Mean Corpuscular Hemoglobin 33.7 pg (27.0-31.2); Mean Corpuscular Volume 100.1 fl (80-94); Mean Platelet Volume 8.4 fl (7.4-10.4); Monocytes # 0.5 K/mm3 (0.1-1.0); Monocytes % 6.7 % (1.7-9.3); Neutrophils # 5.6 K/mm3 (1.8-7.8); Neutrophils % 76.3 % (37.0-80.0); Platelet Count 221 K/mm3 (142-424); Red Blood Count 2.11 M/mm3 (4.60-6.20); Red Cell Distribution Width 19.3 % (11.5-17.5); White Blood Count 7.4 K/mm3 (4.8-10.8)
[2023-08-01 06:42] LABS: Alanine Aminotransferase 34 U/L (12-78); Aspartate Amino Transferase 19 U/L (17-59)
[2023-08-01 07:06] LABS: Anisocytosis 1+; Hypochromasia 1+; Lymphocytes % 13 % (10-50); Macrocytosis 1+; Monocytes % 7 % (2-9); Neutrophils % 79 % (42-76); Total Cells Counted 100
[2023-08-01 07:07] LABS: Platelet Estimate Normal
--- NOTE | 2023-08-01 07:59 | EXP.ACUTE.PN ---
Subjective *Date: 08/01/23 *Time: 08:43 Interval history: Had a better night last night. He seems quite happy today but continues to want to go home. Denies abdominal pain, chest pain, shortness of breath, nausea. Cough is better and cough medicine helps. Bowels have moved. He has been up in the room. Blood pressure has improved and is 129/53 this morning. He is afebrile. CBC this morning with a white blood cell count of 7400, hemoglobin of 7.1 and hematocrit of 21.1. Liver function studies are normal. Blood cultures positive for Clostridium perfringens.Patient is having hepatobiliary scan this morning as well as a barium swallow. He is n.p.o. at present Medical Exam Vital signs and Labs for Last 24 Hours: Vital Signs Temp Pulse Resp BP Pulse Ox O2 Del Method O2 Flow Rate 08/01/23 07:00 Nasal Cannula 2 08/01/23 05:00 Nasal Cannula 2 08/01/23 03:00 Nasal Cannula 2 08/01/23 04:00 98.3 F 81 18 129/53 L 97 Room Air 08/01/23 01:00 Nasal Cannula 2 07/31/23 23:00 Nasal Cannula 2 07/31/23 21:00 Nasal Cannula 2 07/31/23 23:00 Nasal Cannula 2 08/01/23 00:00 98.3 F 82 20 108/46 L 97 Room Air 07/31/23 20:00 98.4 F 94 H 20 117/56 L 97 Room Air 07/31/23 19:00 Nasal Cannula 2 07/31/23 17:00 Nasal Cannula 2 07/31/23 16:00 98.5 F 90 20 116/52 L 97 Nasal Cannula 07/31/23 15:00 Nasal Cannula 2 07/31/23 13:00 Nasal Cannula 2 07/31/23 13:45 Nasal Cannula 07/31/23 12:00 97.6 F 84 20 136/50 L 97 Nasal Cannula 2 07/31/23 11:00 Nasal Cannula 2 07/31/23 09:00 Nasal Cannula 2 07/31/23 10:00 113/56 L 07/31/23 08:00 Nasal Cannula 2 07/31/23 08:00 98.5 F 90 21 85/48 L 97 Nasal Cannula Intake and Output 07/31/23 08/01/23 08/01/23 19:59 03:59 11:59 Intake Total 390 / 390 Output Total 900 / 900 650 / 1550 Balance -510 / -510 -650 / -1160 Intake: Intake, Oral Amount 390 / 390 Output: Output, Urine Amount 900 / 900 650 / 1550 Other: Number of Unmeasured Voids 1 0 Weight 190 lb 3 oz Patient Weight 08/01/23 11:59 Weight 190 lb 3 oz Laboratory Results - last 24 hr 07/31/23 06:10: WBC 9.2, RBC 2.62 L, Hgb 8.8 L D, Hct 26.5 L, MCV 101.5 H, MCH 33.5 H, MCHC 33.0, RDW 19.2 H, Plt Count 241, MPV 8.6, Neut % (Auto) 79.7, Lymph % (Auto) 12.7, [place] % (Auto) 6.0, Eos % (Auto) 1.5, Baso % (Auto) 0.1, Neut # (Auto) 7.3, Lymph # (Auto) 1.2, [place]clean # (Auto) 0.6, Eos # (Auto) 0.1, Baso # (Auto) 0.0 07/31/23 10:10: Vancomycin Trough 9.2 08/01/23 06:20: WBC 7.4, RBC 2.11 L, Hgb 7.1 L, Hct 21.1 L, MCV 100.1 H, MCH 33.7 H, MCHC 33.7, RDW 19.3 H, Plt Count 221, MPV 8.4, Neut % (Auto) 76.3, Lymph % (Auto) 14.6, [place] % (Auto) 6.7, Eos % (Auto) 2.1, Baso % (Auto) 0.2, Neut # (Auto) 5.6, Lymph # (Auto) 1.1, [place]clean # (Auto) 0.5, Eos # (Auto) 0.2, Baso # (Auto) 0.0, Total Counted 100, Neutrophils % (Manual) 79 H, Band Neutrophils % 1.0, Lymphocytes % (Manual) 13, Monocytes % (Manual) 7, Platelet Estimate Normal, Hypochromasia 1+, Anisocytosis 1+, Macrocytosis 1+, AST 19 D, ALT 34 D I & O for Labs for Last 24 Hours: Intake & Output 07/29/23 07/30/23 07/31/23 08/01/23 11:59 11:59 11:59 11:59 Intake Total 4440 / 4440 1130 / 1130 3217 / 3217 390 / 390 Output Total 200 / 200 0 / 0 0 / 0 1550 / 1550 Balance 4240 / 4240 1130 / 1130 3217 / 3217 -1160 / -1160 Weight 195 lb 8 oz 195 lb 3 oz 195 lb 1 oz 190 lb 3 oz Microbiology Reports for the Last 24 Hours: Microbiology 07/28/23 06:50 Blood Blood Culture - Preliminary 07/28/23 06:45 Blood Blood Culture - Preliminary Constitutional: Present no acute distress Comment:: Lying comfortably in the bed. Family at bedside. Respiratory: Present wheezes (Scattered.), crackles (Scattered throughout posteriorly) and diminished air movement (Bilaterally throughout.) Cardiac: Present Reg Rate and Rhythm GI: Present soft and normal bowel sounds
[2023-08-01 08:00] VITALS: BP 137/57; PULSE 75; RESP 18; TEMP 36.6; O2SAT 97
--- NOTE | 2023-08-01 11:14 | NM_ITS ---
FINAL REPORT TECHNIQUE: The patient was injected with 7.83 mCi of technetium 99m. Images of the abdomen were obtained for one hour. CLINICAL HISTORY: Evaluate for bile leak 11:25 am 7.83 [facility]ci tc choletec no cck used pt had gb removed 10 days ago at [facility] COMPARISON: None FINDINGS: The gallbladder is surgically absent. Hepatic uptake is normal. There is small bowel activity at 5 minutes. There is no evidence of bile leak into the gallbladder fossa, the liver, or the perihepatic space. IMPRESSION: No evidence of bile leak into the gallbladder fossa, liver, or perihepatic space as described. Reviewed, Interpreted and Dictated by Sergio Buckley III, MD Transcribed by Candace Jeronimo Authenticated and . [facility]
[2023-08-01 16:00] VITALS: BP 169/72; PULSE 88; RESP 18; TEMP 36.8; O2SAT 98
--- NOTE | 2023-08-01 16:27 | PC.NURSE ---
PT IS RESTING IN BED WITH FAMILY AT BEDSIDE. ALERT AND ORIENTED X4. EATING AND DRINKING FAIR. PT TOLERATED SITTING UP IN THE CHAIR FOR A FEW HOURS THIS SHIFT. TURNED AND REPOSITIONED IN BED. REDNESS AND STAGE 2 NOTED TO THE BUTTOCKS. REDNESS/SMALL OPEN AREA NOTED TO THE SCROTUM. MALE PURWICK REMOVED. PT HAS BEEN INCONTINENT OF BOWEL AND BLADDER THIS SHIFT. LUNG SOUNDS HAVE SCATTERED WHEEZES AND CRACKLES. ABDOMEN SOFT/NON TENDER WITH LAP DRESSINGS INTACT. WILL CONTINUE TO MONITOR.
--- NOTE | 2023-08-01 17:11 | PC.NURSE ---
THE [facility]ICAL [facility] CALLED AND STATED THEY STILL DO NOT HAVE A BED.
[2023-08-01 18:26] VITALS: BP 118/76; PULSE 90; RESP 17; TEMP 36.6; O2SAT 100
[2023-08-01 20:19] VITALS: PULSE 100; O2SAT 95
[2023-08-02] VITALS: BP 115/68; PULSE 74; RESP 18; TEMP 36.4; O2SAT 94; O2SAT 95
[2023-08-02 04:00] VITALS: BP 110/52; PULSE 95; RESP 18; TEMP 37.4; O2SAT 98; BMI 28.8
--- NOTE | 2023-08-02 04:38 | PC.NURSE ---
Pt is alert and oriented x4, currently on 2L of O2 and is sating 94-95%. Pt has tolerated antibiotic therapy well and has no complaints of pain. Pt remains incontinent and requires Q2 turning and check and changes this shift. Pt scrotum remains excoriated and has 2 open areas to bottom which remain open. Nurse x2 have applied barrier cream to excoriated areas as needed. Pt denies pain and other needs at this time.
[2023-08-02 06:05] VITALS: PULSE 99; O2SAT 96
[2023-08-02 07:22] VITALS: BP 154/61; PULSE 108; RESP 18; TEMP 37.1; O2SAT 97
[2023-08-02 07:31] LABS: Alanine Aminotransferase 31 U/L (12-78); Aspartate Amino Transferase 22 U/L (17-59)
--- NOTE | 2023-08-02 09:01 | EXP.ACUTE.PN ---
Subjective *Date: 08/02/23 *Time: 09:01 Interval history: Patient with no new complaints today. He wants to know when he will be transferred to [facility]. Medical Exam Vital signs and Labs for Last 24 Hours: Vital Signs Temp Pulse Pulse Resp BP Pulse Ox O2 Del Method 08/02/23 07:22 98.7 F 108 H 18 154/61 H 97 Nasal Cannula 08/02/23 06:37 Nasal Cannula 08/02/23 06:05 99 H 08/02/23 06:05 99 H 08/02/23 06:05 96 Nasal Cannula 08/02/23 04:00 99.3 F 95 H 18 110/52 L 98 Nasal Cannula 08/02/23 04:36 Nasal Cannula 08/02/23 00:00 97.6 F 74 18 115/68 94 L Nasal Cannula 08/02/23 02:37 Nasal Cannula 08/02/23 01:00 Nasal Cannula 08/02/23 00:00 95 Nasal Cannula 08/01/23 22:39 Nasal Cannula 08/01/23 21:00 Nasal Cannula 08/01/23 20:00 Nasal Cannula 08/01/23 20:19 100 H 08/01/23 20:19 100 H 08/01/23 20:19 95 Nasal Cannula 08/01/23 19:00 Nasal Cannula 08/01/23 18:26 97.9 F 90 17 118/76 100 Nasal Cannula 08/01/23 17:00 Nasal Cannula 08/01/23 16:00 98.3 F 88 18 169/72 H 98 Room Air 08/01/23 15:00 Nasal Cannula 08/01/23 12:58 Nasal Cannula 08/01/23 10:43 Nasal Cannula O2 Flow Rate 08/02/23 07:22 2 08/02/23 06:37 2 08/02/23 06:05 08/02/23 06:05 08/02/23 06:05 2 08/02/23 04:00 2 08/02/23 04:36 2 08/02/23 00:00 2 08/02/23 02:37 2 08/02/23 01:00 2 08/02/23 00:00 2 08/01/23 22:39 2 08/01/23 21:00 2 08/01/23 20:00 2 08/01/23 20:19 08/01/23 20:19 08/01/23 20:19 2 08/01/23 19:00 2 08/01/23 18:26 2 08/01/23 17:00 2 08/01/23 16:00 08/01/23 15:00 2 08/01/23 12:58 2 08/01/23 10:43 2 Intake and Output 08/01/23 08/02/23 08/02/23 23:59 07:59 15:59 Intake Total 270 / 575 462 / 462 Output Total 0 / 650 0 / 0 Balance 270 / -75 462 / 462 Intake: Intake, Oral Amount 270 / 390 360 / 360 Intake, Total IV Amount 100 / 100 Piperacillin/Tazo 3.375 gm In 0 100 / 100 .9 % Sodium Chloride 50 ml @ 100 mls/hr IV Q6H [facility] Rx#: [id number] Infusion Intake 2 / 2 Piperacillin/Tazo 3.375 gm In 0 2 / 2 .9 % Sodium Chloride 50 ml @ 100 mls/hr IV Q6H [facility] Rx#: [id number] Output: Output, Urine Amount 0 / 650 0 / 0 Other: Number of Unmeasured Voids 2 1 Number of Bowel Movements 2 Weight 190 lb 10.563 oz Patient Weight 08/02/23 23:59 Weight 190 lb 10.563 oz Laboratory Results - last 24 hr 08/02/23 07:16: AST 22, ALT 31 I & O for Labs for Last 24 Hours: Intake & Output 07/30/23 07/31/23 08/01/23 08/02/23 23:59 23:59 23:59 23:59 Intake Total 3617 / 3617 510 / 510 455 / 575 462 / 462 Output Total 0 / 0 900 / 900 650 / 650 0 / 0 Balance 3617 / 3617 -390 / -390 -195 / -75 462 / 462 Weight 195 lb 2.804 oz 195 lb 1 oz 190 lb 3 oz 190 lb 10.563 oz Microbiology Reports for the Last 24 Hours: Microbiology 07/28/23 06:50 Blood Blood Culture - Preliminary 07/28/23 06:45 Blood Blood Culture - Preliminary Constitutional: Present no acute distress Respiratory: Present normal respiratory effort Comment:: Few coarse breath sounds today, no wheezes Cardiac: Present Reg Rate and Rhythm GI: Present tenderness (RLQ, RMQ) and normal bowel sounds Extremities: Present normal inspection, full ROM and edema (Trace bilateral LE's) Skin: Present intact; Absent erythema Neuro: Present Grossly Intact and moves all extremities Assessment and Plan *Assessment and plan (1) Abscess, hepatic: Status: Acute Category: Medical Code(s): K75.0 - Abscess of liver (2) COVID-19: Status: Acute Category: Medical Code(s): U07.1 - COVID-19 (3) History of cholecystectomy: Status: Acute Category: Surgical Code(s): Z90.49 - Acquired absence of other specified parts of digestive tract (4) Hype
[2023-08-02 11:13] VITALS: BP 110/50; PULSE 117; RESP 18; TEMP 36.9; O2SAT 99
[2023-08-02 11:26] VITALS: TEMP 36.7
--- NOTE | 2023-08-02 14:11 | HMH.PTWOUND ---
Rehab Inpt Wound Evaluation Rehab IP Wound Evaluation Start: 08/02/23 11:05 Freq: ONCE Status: Active Protocol: Document 08/02/23 14:06 HARDIK (Rec: 08/02/23 14:10 PHORALVINO [id number]) Rehab PT Wound Assessment Subjective Subjective 83 yowm adm to [facility] with COVID- 19 and poss liver abcess. Currently being transferred to [facility] level of care. Has R buttock pressure injury. Wound Right Medial Buttock Wound Type Pressure Ulcer Is This a Chronic Wound No Wound Staging Stage II Query Text:Stage I - Unbroken, red skin, no blanching. Stage II - Skin broken, superficial skin loss involving epidermis alone or also dermis. Partial loss of skin layers. Stage III - Pressure area involves epidermis, dermis and subcutaneous tissue, full thickness skin loss. Stage IV - Pressure area involves epidermis, subcutaneous tissue, bone and other supportive tissue. Full thickness skin loss with extensive destruction of underlying tissue and structures. Wound Length (cm) 0.5 Wound Width (cm) 0.2 Wound Depth (cm) 0.1 Wound Bed Appearance Wells Wound Margins Description Well Defined Surrounding Tissue Appearance Wells Drainage Amount None Dressing Change Patient Tolerance Tolerated Well Plan/Recommendation Comment Wound has no need for debridement at this time and pt educated on pressure relief activities. Continue rto monitor for further breakdown. Eval Complexity Eval Charge Codes 58169 - High Complexity PHYSICIAN CERTIFICATION: I certify the specified therapy services for Bashir Dickerson are required, authorized, and reviewed every 30 days.
--- NOTE | 2023-08-03 08:00 | EXP.DC.SUM ---
General Admission date:: 07/28/23 Discharge date: 08/02/23 HPI HPI HPI: In summary patient is a 83-year-old male past medical history described above presents emergency department for evaluation of shortness of breath and suspected COVID-positive status. Patient is hemodynamically stable, tachycardic, tachypneic upon arrival, requiring 2 to 3 L nasal cannula oxygen to maintain oxygenation greater than 90% SPO2. Differential diagnosis includes COVID, superimposed pneumonia, silent ACS among others. Work-up will be conducted with hematologic labs, chest x-ray, EKG, serial troponins, D-dimer, VBG. Initial interventions include 6 mg of dexamethasone. 500 cc ringer crystalloid bolus will be conducted for gentle volume resuscitation. Initial work-up reviewed by me, hematologic labs remarkable for white count of 15 with left shift, elevated D-dimer for which CT PE will be obtained. Worsening hyperbilirubinemia. Chest x-ray informally interpreted by me, right basilar opacity which may be reflective of pneumonia for which levofloxacin will be administered given patient is allergic to cephalosporins. Given worsening hyperbilirubinemia CT abdomen pelvis will be obtained in addition to CT pulmonary embolism protocol. Upon repeat evaluation [id number] ultrasound at bedside shows grossly normal ejection fraction (images were not saved to apartment archive therefore no note is warranted). Given this although patient is extra vascularly volume overloaded will be given an additional 500 cc crystalloid given that he is likely intravascularly deplete. CT imaging of the abdomen and pelvis informally interpreted by me, I have concern for a large multifocal air-fluid collection in the liver which may be inside outside sales representative of abscess given patient's perioperative state. For this after discussion with pharmacy metronidazole will be added in addition to levofloxacin for appropriate coverage. The case was discussed with [facility] surgery Dr. Rajan who accepted patient for transfer, unfortunately they are operating under a wait list at this time for which the case was discussed with [facility] medicine who accepted patient for transfer for which patient is fourth on the list. Case was subsequently discussed with Dr. Ramirez regarding management who recommends broad-spectrum antibiotics, I agree with this given patient's possibility to decompensate. Given this patient will be broadened to vancomycin and Zosyn. Upon repeat evaluation patient continued to be hemodynamically stable, responding well to volume resuscitation. Patient will be admitted to the floor here pending transfer to [facility] for definitive evaluation and management. (above as per ER physician) According to the patient's , he was diagnosed with covid while he was still in the hospital for his gallbladder removal. He still has a cough and weakness. He denies any pain. Hospital Course Hospital Course Hospital Course: The patient's chest x-ray showed worsening bibasilar atelectasis versus pneumonia. His CTA showed multiple small nodular opacities in the chest. There was a new right upper lobe nodular opacity with several other smaller adjacent nodules likely inflammatory. His abdominal pelvic CT showed multiple air-fluid collections in the gallbladder fossa and the liver with a dominant fluid collection in the left hepatic lobe measuring 8.7 cm. Radiology felt this was consistent with multiple abscesses. The patient was placed on a wait list for transfer to [facility] and was started on broad-spectrum antibiotics. His H&H did drop and he was given 1 unit of packed red blood cells. His bilirubin and LFTs improved. Some of his home medications were resumed. By 07/31/2023 he was not feeling well. He was awake most of the night coughing and continued with some abdominal discomfort. He was able to eat a small amount of breakfast. His blood pressure was low. Promethazine DM was added to hi
== END 2023-08-02 15:03 | disposition short-term general hospital (02) | DRG 441 ==
LOC: ER 11:37 → 2ND 11:43
PROVIDERS: Internal Medicine Adolescent Medicine; Nurse Practitioner Family; Admitting Provider Family Medicine; Emergency Provider Emergency Medicine; PCP Family Medicine; Visit Provider Family Medicine
DX: U07.1 COVID-19 (principal); K75.0 Abscess of liver; I25.110 Atherosclerotic heart disease of native coronary artery with unstable angina pectoris; R78.81 Bacteremia; I25.10 Atherosclerotic heart disease of native coronary artery without angina pectoris; I12.9 Hypertensive chronic kidney disease with stage 1 through stage 4 chronic kidney disease, or unspecified chronic kidney disease; N18.30 Chronic kidney disease, stage 3 unspecified; Z95.5 Presence of coronary angioplasty implant and graft; Z95.1 Presence of aortocoronary bypass graft; K21.9 Gastro-esophageal reflux disease without esophagitis; E80.6 Other disorders of bilirubin metabolism; E78.2 Mixed hyperlipidemia; E03.9 Hypothyroidism, unspecified; D63.1 Anemia in chronic kidney disease
CPT/HCPCS: 36415; 71045; 71275; 74177; 78226; 80053; 80202; 82248; 82803; 83690; 83880; 84450; 84460; 84484; 85007; 85014; 85018; 85025; 85048; 85049; 85378; 86850; 87040; 87636; 92610; 93005; 94640; 94761; 99291; A9537; J1956; J2543; P9016; Q9967

== ENCOUNTER → 2023-09-14 11:11 | Outpatient (CLI) | payer MEDICARE, SELFPAY ==
[2023-09-14 11:33] LABS: Basophils # 0.1 K/mm3 (0-0.2); Basophils % 0.8 % (0.1-2.0); Eosinophils # 0.5 K/mm3 (0.0-0.4); Eosinophils % 5.3 % (0.1-12.0); Hematocrit 36.9 % (42.0-52.0); Hemoglobin 11.9 g/dL (14.1-18.0); Lymphocytes # 2.9 K/mm3 (0.7-4.5); Lymphocytes % 31.5 % (10-50); Mean Corpuscular HGB Conc 32.3 g/dL (31.8-35.4); Mean Corpuscular Hemoglobin 33.1 pg (27.0-31.2); Mean Corpuscular Volume 102.6 fl (80-94); Monocytes # 0.8 K/mm3 (0.1-1.0); Neutrophils # 5.1 K/mm3 (1.8-7.8); Neutrophils % 54.4 % (37.0-80.0); Platelet Count 291 K/mm3 (142-424); Red Cell Distribution Width 18.1 % (11.5-17.5); White Blood Count 9.3 K/mm3 (4.8-10.8)
[2023-09-14 12:23] LABS: Carbon Dioxide 29 mmol/L (22.0-30.0); Sodium 138 mmol/L (136-145)
[2023-09-14 12:32] LABS: NT Pro Brain Natriuretic Pep. 862 pg/mL (0-450)
[2023-09-14 14:33] LABS: Anion Gap 6.7 mEq/L (5-15); Chloride 106 mmol/L (98-107); Potassium 3.7 mmoL/L (3.5-5.1)
[2023-09-14 14:36] LABS: Blood Urea Nitrogen 16 mg/dl (9-20); Estimated Glomerular Filt Rate 64 ml/min (>60); GFR (African American) 77 ML/MIN (>60)
[2023-09-14 14:37] LABS: Calcium 8.3 mg/dl (8.4-10.2); Glucose 101 mg/dl (74-100)
== END ==
PROVIDERS: PCP Family Medicine; Visit Provider Physician Assistant
DX: D64.9 Anemia, unspecified (principal); E78.5 Hyperlipidemia, unspecified; I11.9 Hypertensive heart disease without heart failure; I25.10 Atherosclerotic heart disease of native coronary artery without angina pectoris; I34.0 Nonrheumatic mitral (valve) insufficiency; I65.29 Occlusion and stenosis of unspecified carotid artery; R06.00 Dyspnea, unspecified; R60.9 Edema, unspecified
CPT/HCPCS: 36415; 80048; 83880; 85025

== ENCOUNTER → 2023-09-20 13:39 | Outpatient (CLI) | payer MEDICARE, SELFPAY ==
[2023-09-20 14:31] LABS: Basophils % 0.4 % (0.1-2.0); Eosinophils # 0.4 K/mm3 (0.0-0.4); Eosinophils % 4.8 % (0.1-12.0); Hematocrit 37.1 % (42.0-52.0); Hemoglobin 12.4 g/dL (14.1-18.0); Lymphocytes # 3.4 K/mm3 (0.7-4.5); Lymphocytes % 38.6 % (10-50); Mean Corpuscular HGB Conc 33.3 g/dL (31.8-35.4); Mean Corpuscular Hemoglobin 33.4 pg (27.0-31.2); Mean Corpuscular Volume 100.3 fl (80-94); Mean Platelet Volume 6.9 fl (7.4-10.4); Monocytes # 0.6 K/mm3 (0.1-1.0); Monocytes % 6.4 % (1.7-9.3); Neutrophils # 4.3 K/mm3 (1.8-7.8); Neutrophils % 49.8 % (37.0-80.0); Platelet Count 281 K/mm3 (142-424); Red Cell Distribution Width 17.3 % (11.5-17.5); White Blood Count 8.7 K/mm3 (4.8-10.8)
[2023-09-20 14:48] LABS: Creatinine,Urine Random 12 mg/dL (Not Estab.); Microalbumin < 6.000 mg/L (0-16.7)
[2023-09-20 15:02] LABS: Alanine Aminotransferase 32 U/L (12-78); Albumin Level 3.5 g/dl (3.5-5.0); Albumin/Globulin Ratio 1.2 (1.1-1.8); Alkaline Phosphatase 174 U/L (38-126); Anion Gap 7.4 mEq/L (5-15); Aspartate Amino Transferase 39 U/L (17-59); Bilirubin,Total 0.5 mg/dl (0.2-1.3); Blood Urea Nitrogen 11 mg/dl (9-20); Calcium 8.4 mg/dl (8.4-10.2); Carbon Dioxide 31 mmol/L (22.0-30.0); Chloride 102 mmol/L (98-107); Chol/HDL Ratio 4.8 (1-3.5); Cholesterol 125 mg/dl (140-200); Estimated Glomerular Filt Rate 71 ml/min (>60); GFR (African American) 86 ML/MIN (>60); Globulin 2.9 g/dL (1.3-3.2); Glucose 99 mg/dl (74-100); HDL Cholesterol 26 mg/dl (40-60); Potassium 3.4 mmoL/L (3.5-5.1); Sodium 137 mmol/L (136-145); Total Protein,Serum 6.4 g/dl (6.3-8.2); Triglycerides 79 mg/dl (30-150); VLDL Cholesterol 16 mg/dL (0-40)
[2023-09-20 15:14] LABS: Direct LDL Cholesterol 84.88 mg/dL (100-129)
[2023-09-20 15:20] LABS: Free T4 (Free Thyroxine) 1.64 ng/dl (0.78-2.19)
[2023-09-20 15:21] LABS: 25-OH Vitamin D, Total 77.1 ng/mL (30-100)
[2023-09-20 15:34] LABS: Thyroid Stimulating Hormone 2.34 uIU/mL (0.465-4.68)
== END ==
PROVIDERS: PCP Family Medicine; Visit Provider Family Medicine
DX: E78.5 Hyperlipidemia, unspecified (principal); N18.31 Chronic kidney disease, stage 3a; D64.9 Anemia, unspecified; E03.9 Hypothyroidism, unspecified; E55.9 Vitamin D deficiency, unspecified; Z68.27 Body mass index [BMI] 27.0-27.9, adult; I12.9 Hypertensive chronic kidney disease with stage 1 through stage 4 chronic kidney disease, or unspecified chronic kidney disease
CPT/HCPCS: 36415; 80053; 80061; 82043; 82306; 82570; 84439; 84443; 85025

== ENCOUNTER 2024-01-12 10:30 | Outpatient (CLI) | payer MEDICARE, SELFPAY ==
--- NOTE | 2024-01-12 10:36 | XR_ITS ---
FINAL REPORT CLINICAL HISTORY: RIGHT SIDED SCIATICA states pain in right hip that radiates down leg COMPARISON: None FINDINGS: 5 views of the lumbar spine were obtained. There is no evidence of fracture or dislocation. 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 There is mild retrolisthesis of L2 on L3, L3 on L4, and L4 on L5. Vascular calcifications are present. IMPRESSION: Moderate and severe degenerative change as described above. Reviewed, Interpreted and Dictated by Sergio Buckley III, MD Transcribed by Candace Jeronimo Authenticated and [facility]
== END 2024-01-12 23:59 | disposition home or self-care (01) ==
LOC: RAD 10:31
PROVIDERS: PCP Family Medicine; Visit Provider Family Medicine
DX: M54.31 Sciatica, right side (principal)
CPT/HCPCS: 72110

== ENCOUNTER 2024-04-10 10:18 | Outpatient (POV) | payer MEDICARE, SELFPAY | END 2024-04-10 23:59 | disposition home or self-care (01) | LOC: SC 10:18 | PROVIDERS: Visit Provider Specialist/Technologist | DX: Z00.00 Encounter for general adult medical examination without abnormal findings (principal) ==

== ENCOUNTER 2024-10-25 08:51 | Day surgery (SDC) | payer MEDICARE, SELFPAY ==
[2024-10-25] VITALS (9 sets, daily range): BP systolic 113–158; BP diastolic 54–83; PULSE 54–77; RESP 18–20; O2SAT 96–100; BMI 28.0
--- NOTE | 2024-10-25 07:11 | IR_ITS ---
APPROVED REPORT Patient Location: Outpatient Breaker Up: ABDULKADIR Anglin RT (R) PROCEDURES Selective coronary angiogram INDICATION History of coronary artery disease, Worsening angina pectoris Informed consent was obtained prior to the procedure. COMPLICATIONS none Estimated Blood Loss: less than 10ml TECHNIQUE One percent lidocaine used to anesthetize the right anterior aspect of the wrist. The right radial artery was accessed via the Seldinger technique. A 6 Peruvian sheath was placed in the right radial artery. 2.5 mg of Verapamil, 800 mcg of nitroglycerin, 1mg Lidocaine and 5000 U Heparin were given through the arterial sheath. The 6 Peruvian JL 3 guide catheter and a 6 [place]uvian MICHAELS catheter were used to perform selective coronary angiogram. At the end of the procedure the sheath was removed good hemostasis was achieved using Traclet band, patient was transferred to the postop holding area in stable condition. ANGIOGRAPHIC RESULTS The left main artery Has an ostial eccentric 30 to 40% stenosis The left anterior descending artery Has a stent in the proximal segment which is widely patent free of in-stent restenosis with excellent proximal distal transitioning. The remaining LAD is widely patent with mild 10 to 20% luminal regularities The circumflex artery Is nondominant and has a proximal eccentric 30% stenosis with an additional 30% stenosis in the second obtuse marginal artery The right coronary artery Is large and dominant and has a stent in the ostial and proximal segment which is widely patent with minimal in-stent restenosis. Distally there is wide patency of the [place] vessel giving off a large posterior descending artery and medium size posterior lateral branch The HIGH ventriculogram reveals Not performed The left ventricular end-diastolic pressure Not measured IMPRESSION Adequate coronary revascularization as described above PLAN 1. Continue medical management. Angina pectoris likely stems from microvascular ischemia Electronically signed by : Elliott Romo MD 10/25/2024 12:48:35
[2024-10-25 09:26] LABS: Basophils % 0.5 % (0.1-2.0); Eosinophils # 0.2 K/mm3 (0.0-0.4); Eosinophils % 2.7 % (0.1-12.0); Hematocrit 34.4 % (42.0-52.0); Hemoglobin 11.6 g/dL (14.1-18.0); Lymphocytes # 1.7 K/mm3 (0.7-4.5); Mean Corpuscular HGB Conc 33.7 g/dL (31.8-35.4); Mean Corpuscular Hemoglobin 34.4 pg (27.0-31.2); Mean Corpuscular Volume 102.1 fl (80-94); Mean Platelet Volume 9.8 fl (7.4-10.4); Monocytes # 0.7 K/mm3 (0.1-1.0); Monocytes % 10.7 % (1.7-9.3); Neutrophils # 3.8 K/mm3 (1.8-7.8); Neutrophils % 59.8 % (37.0-80.0); Platelet Count 178 K/mm3 (142-424); Red Blood Count 3.37 M/mm3 (4.60-6.20); Red Cell Distribution Width 12.9 % (11.5-17.5); White Blood Count 6.4 K/mm3 (4.8-10.8)
[2024-10-25 09:37] LABS: Chloride 106 mmol/L (98-107); Sodium 139 mmol/L (136-145)
[2024-10-25 09:38] LABS: Potassium 4.2 mmoL/L (3.5-5.1)
[2024-10-25 09:41] LABS: Anion Gap 12.2 mEq/L (5-15); Blood Urea Nitrogen 32 mg/dl (9-20); Calcium 8.8 mg/dl (8.4-10.2); Carbon Dioxide 25 mmol/L (22.0-30.0); Creatinine Clearance Estimated 52 mL/min (50-200); Estimated Glomerular Filt Rate 53 ml/min (>60); GFR (African American) 64 ML/MIN (>60); Glucose 136 mg/dl (74-100)
[2024-10-25] MEDS: MIDAZOLAM HCL 1MG/ML 5ML VIAL 1 MG IV (10:22)
[2024-10-25] MEDS: FENTANYL 100MCG/2ML VIAL 50 MCG IV (10:22)
[2024-10-25] MEDS: HEPARIN 1,000 UNITS/500ML NS (CATH LAB) 3000 UNIT IV (10:22)
[2024-10-25] MEDS: diphenhydrAMINE 50MG/ML VIAL 50 MG IV ×2 (10:22→10:23)
[2024-10-25] MEDS: HEPARIN 1,000 UNITS/ML 10ML VIAL (CATH LAB) 10000 UNIT IV (10:23)
[2024-10-25] MEDS: VERAPAMIL 2.5MG/ML 2ML VIAL 2.5 MG IV (10:23)
[2024-10-25] MEDS: LIDOCAINE 1% 10ML MDV 20 ML IJ (10:23)
[2024-10-25] MEDS: NITROGLYCERIN 800MCG/8ML SYR (CATH LAB) 800 MCG IA (10:24)
[2024-10-25] MEDS: 0.9 % SODIUM CHLORIDE 500 ML 25 ML IV (10:24)
[2024-10-25] MEDS: IOPAMIDOL-370 (76%);100ML BOTTLE 90 ML IV (13:10)
== END 2024-10-25 13:45 | disposition home or self-care (01) ==
LOC: CATHLAB 08:54
PROVIDERS: Visit Provider Internal Medicine
DX: I25.110 Atherosclerotic heart disease of native coronary artery with unstable angina pectoris (principal); N18.30 Chronic kidney disease, stage 3 unspecified; I12.9 Hypertensive chronic kidney disease with stage 1 through stage 4 chronic kidney disease, or unspecified chronic kidney disease; Z95.1 Presence of aortocoronary bypass graft; I34.0 Nonrheumatic mitral (valve) insufficiency; I65.23 Occlusion and stenosis of bilateral carotid arteries; Z79.899 Other long term (current) drug therapy
CPT/HCPCS: 80048; 85025; 93455; 99152; C1725; C1769; J1200; J1644; J2250; J3010; Q9967

== ENCOUNTER 2024-11-22 11:12 | Outpatient (CLI) | payer MEDICARE, SELFPAY ==
[2024-11-22 13:32] LABS: Basophils % 0.4 % (0.1-2.0); Eosinophils # 0.2 K/mm3 (0.0-0.4); Hematocrit 33.1 % (42.0-52.0); Hemoglobin 11.4 g/dL (14.1-18.0); Lymphocytes # 1.6 K/mm3 (0.7-4.5); Lymphocytes % 21.8 % (10-50); Mean Corpuscular HGB Conc 34.4 g/dL (31.8-35.4); Mean Corpuscular Hemoglobin 34.9 pg (27.0-31.2); Mean Corpuscular Volume 101.2 fl (80-94); Monocytes # 0.8 K/mm3 (0.1-1.0); Neutrophils # 4.6 K/mm3 (1.8-7.8); Neutrophils % 63.5 % (37.0-80.0); Platelet Count 184 K/mm3 (142-424); Red Blood Count 3.27 M/mm3 (4.60-6.20); Red Cell Distribution Width 13.4 % (11.5-17.5); White Blood Count 7.3 K/mm3 (4.8-10.8)
[2024-11-22 14:04] LABS: Albumin Level 3.8 g/dl (3.5-5.0); Chloride 103 mmol/L (98-107); Potassium 4.2 mmoL/L (3.5-5.1); Sodium 138 mmol/L (136-145)
[2024-11-22 14:07] LABS: Alanine Aminotransferase 28 U/L (12-78); Albumin/Globulin Ratio 1.5 (1.1-1.8); Alkaline Phosphatase 102 U/L (38-126); Anion Gap 10.2 mEq/L (5-15); Aspartate Amino Transferase 26 U/L (17-59); Bilirubin,Total 0.7 mg/dl (0.2-1.3); Blood Urea Nitrogen 22 mg/dl (9-20); Carbon Dioxide 29 mmol/L (22.0-30.0); Estimated Glomerular Filt Rate 64 ml/min (>60); GFR (African American) 77 ML/MIN (>60); Globulin 2.5 g/dL (1.3-3.2); Iron 99 ug/dL (49-181); Total Protein,Serum 6.3 g/dl (6.3-8.2)
[2024-11-22 14:08] LABS: Calcium 8.8 mg/dl (8.4-10.2); Glucose 144 mg/dl (74-100)
[2024-11-22 14:18] LABS: Total Iron Binding Capacity 294 ug/dL (261-462)
[2024-11-22 14:42] LABS: Ferritin 133 ng/ml (17.9-464)
[2024-11-22 16:03] LABS: Vitamin B12 854 pg/mL (239-931)
== END 2024-11-22 23:59 | disposition home or self-care (01) ==
LOC: LAB.DROPOF 11-23 11:58
PROVIDERS: PCP Internal Medicine; Visit Provider Internal Medicine
DX: N18.30 Chronic kidney disease, stage 3 unspecified (principal); D64.9 Anemia, unspecified
CPT/HCPCS: 80053; 82607; 82728; 83540; 83550; 85025

== ENCOUNTER 2024-12-25 18:05 | Outpatient (CLI) | payer MEDICARE, SELFPAY ==
[2024-12-25 18:14] LABS: Microscopic, Urine URINE MICROSCOPIC (MICROSCOPIC)
[2024-12-25 18:18] LABS: Bilirubin,Urine Negative (Negative); Blood, Urine Negative (Negative); Color,Urine YELLOW (Yellow); Glucose,Urine (UA) Negative (Negative); Ketones,Urine Negative (Negative); Leukocyte Esterase,Urine Negative (Negative); Nitrate,Urine Negative (Negative); PH,Urine 5.5 (5.0-8.5); Protein,Urine Negative (Negative)
[2024-12-25 18:54] LABS: Appearance,Urine Clear (Clear); WBC,Urine 20-50 #/hpf (0-3)
[2024-12-25 18:55] LABS: Bacteria,Urine 2+ /lpf; Mucus,Urine 1+ /lpf
== END 2024-12-25 23:59 | disposition home or self-care (01) ==
LOC: LAB.DROPOF 18:05
PROVIDERS: PCP Internal Medicine; Visit Provider Internal Medicine
DX: R82.998 Other abnormal findings in urine (principal)
CPT/HCPCS: 81001; 87086

== ENCOUNTER 2024-12-29 15:22 | Outpatient (CLI) | payer MEDICARE, SELFPAY ==
--- NOTE | 2024-12-29 15:46 | XR_ITS ---
PROCEDURE INFORMATION: Exam: XR Chest Exam date and time: 12/29/2024 3:48 PM Age: 84 years old Clinical indication: Cough; Additional info: Cough/congestion TECHNIQUE: Imaging protocol: Radiologic exam of the chest. Views: 2 views. Total images: 4 COMPARISON: CT ANGIO CHEST PE PROTOCOL 07/28/2023 8:41 AM FINDINGS: Lungs: Atelectatic changes noted within both lung bases. No focal pneumonia. Pleural spaces: Unremarkable. No pleural effusion. No pneumothorax. Heart/Mediastinum: Unremarkable. No cardiomegaly. Diaphragm: There is nonspecific elevation of the left hemidiaphragm. Bones/joints: There is evidence of prior median sternotomy. Hypertrophic bridging noted throughout the thoracic spine. IMPRESSION: 1. Atelectatic changes noted within both lung bases. 2. No focal pneumonia.
== END 2024-12-29 23:59 | disposition home or self-care (01) ==
LOC: RAD 15:24
PROVIDERS: PCP Internal Medicine; Visit Provider Nurse Practitioner
DX: R05.9 Cough, unspecified (principal)
CPT/HCPCS: 71046

== ENCOUNTER 2025-01-12 13:11 | Emergency (ER) | payer MEDICARE, SELFPAY ==
[2025-01-12] VITALS (16 sets, daily range): BP systolic 136–170; BP diastolic 60–72; PULSE 54–68; RESP 12–20; TEMP 36.8; O2SAT 93–100; BMI 31.3
--- NOTE | 2025-01-12 13:17 | PC.NURSE ---
Dr Etienne at bedside
--- NOTE | 2025-01-12 13:22 | XR_ITS ---
PROCEDURE INFORMATION: Exam: XR Chest Exam date and time: 01/12/2025 2:30 PM Age: 84 years old Clinical indication: Shortness of breath; Additional info: SOB TECHNIQUE: Imaging protocol: Radiologic exam of the chest. Views: 1 view. COMPARISON: CT ANGIO CHEST PE PROTOCOL 01/12/2025 2:19 PM FINDINGS: Lungs: Known hazy opacities in right upper lobe are better characterized on prior chest CT. Pleural spaces: Small left pleural effusion Heart/Mediastinum: Postoperative changes from prior coronary artery bypass graft. Bones/joints: Sternotomy wires are intact. IMPRESSION: Known hazy opacities in right upper lobe are better characterized on prior chest CT.
--- NOTE | 2025-01-12 13:23 | CT_ITS ---
PROCEDURE INFORMATION: Exam: CT Abdomen And Pelvis With Contrast Exam date and time: 01/12/2025 2:19 PM Age: 84 years old Clinical indication: Abdominal tenderness; Additional info: Abd tenderness TECHNIQUE: Imaging protocol: Computed tomography of the abdomen and pelvis with contrast. 3D rendering (Not supervised by radiologist): MIP and/or 3D reconstructed images were created by the technologist. Radiation optimization: All CT scans at this facility use at least one of these dose optimization techniques: automated exposure control; mA and/or kV adjustment per patient size (includes targeted exams where dose is matched to clinical indication); or iterative reconstruction. Contrast material: ISOVUE; Contrast volume: 70 ml; Contrast route: IV; COMPARISON: CT ABDOMEN PELVIS W CON 07/28/2023 8:41 AM FINDINGS: Pleural spaces: Small left pleural effusion and left lower lobe subsegmental atelectasis. Liver: Hepatic steatosis noted. There is an ill-defined hypodensity in the right hepatic lobe favored perfusional. Underlying lesion is difficult to exclude. Gallbladder and biliary ducts: There has been a cholecystectomy. Pancreas: New main pancreatic ductal dilation to 2 cm. There is an ill-defined hypodense lesion centered in the uncinate process measuring 3 cm. Mild stranding along the left anterior pararenal space may represent an element of pancreatitis. Spleen: No splenomegaly. Multiple splenic granulomas Adrenal glands: The adrenal glands are normal. Kidneys and ureters: Nephrograms are symmetric. No nephrolithiasis or hydroureteronephrosis on either side. No solid lesions Stomach and bowel: Pancolonic diverticulosis noted without acute inflammatory change. Appendix: No evidence of appendicitis. Intraperitoneal space: Moderate volume ascites Vasculature: The aorta demonstrates moderate atherosclerotic calcification. Severe narrowing of the celiac axis and superior mesenteric artery origins. 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 Lymph nodes: No evidence of retroperitoneal or mesenteric lymphadenopathy. Urinary bladder: Urinary bladder is unremarkable. Urinary bladder is unremarkable. Reproductive: Unremarkable as visualized. Bones/joints: Multilevel degenerative changes of the included spine. No acute osseous abnormality. Soft tissues: Unremarkable. IMPRESSION: 1. 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 Alternative considerations include side branch IPMN/pseudocyst. Evaluation with abdominal MRI/MRCP is recommended. Mild stranding along the left anterior pararenal space could represent an element of pancreatitis. Correlate with lipase levels. 2. 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 ill-defined hypodensity in the right hepatic lobe favored perfusional. Underlying lesion is difficult to exclude. Both findings can be contemporaneously evaluated with already recommended abdominal MRI. 3. Moderate volume ascites
--- NOTE | 2025-01-12 13:23 | CT_ITS ---
PROCEDURE INFORMATION: Exam: CTA Chest With Contrast Exam date and time: 01/12/2025 2:19 PM Age: 84 years old Clinical indication: Shortness of breath; Additional info: SOB TECHNIQUE: Imaging protocol: Computed tomographic angiography of the chest with contrast. Exam focused on the arteries. 3D rendering (Not supervised by radiologist): MIP and/or 3D reconstructed images were created by the technologist. Radiation optimization: All CT scans at this facility use at least one of these dose optimization techniques: automated exposure control; mA and/or kV adjustment per patient size (includes targeted exams where dose is matched to clinical indication); or iterative reconstruction. Contrast material: ISO 370; Contrast volume: 70 ml; Contrast route: INTRAVENOUS (IV); Other contrast: Oral; COMPARISON: CT ANGIO CHEST PE PROTOCOL 07/28/2023 8:41 AM FINDINGS: Pulmonary arteries: There are bilateral subocclusive pulmonary emboli in lower lobe and lingular segmental branches. Aorta: Aorta is nonaneurysmal. Trachea: Main airways are patent. Lungs: Bibasilar subsegmental atelectasis noted. Scattered patchy ground-glass opacities in right upper lobe likely of infectious/inflammatory etiologies. No masses. Pleural spaces: Small left pleural effusion Heart: Cardiomegaly attributable to multi cardiac chamber enlargement. The left atrial appendage is normal. Heart RV/LV ratio: The RV LV ratio equals 1. Coronary arteries: Postoperative changes from prior coronary artery bypass graft. Lymph nodes: No evidence of mediastinal or hilar lymphadenopathy. Intraperitoneal space: For findings in the abdomen and pelvis, please refer to the separately dictated abdomen and pelvis CT report under a separate accession number. Bones/joints: Sternotomy wires are intact. Multilevel degenerative changes of the included spine. Soft tissues: Unremarkable. IMPRESSION: 1. There are bilateral subocclusive pulmonary emboli in lower lobe and lingular segmental branches. 2. RV LV ratio equals 1 (upper limits of normal/mild right heart strain) 3. Scattered patchy ground-glass opacities in right upper lobe likely of infectious/inflammatory etiologies THIS REPORT CONTAINS FINDINGS THAT MAY BE CRITICAL TO PATIENT CARE. The findings were verbally communicated via telephone conference at 3:01 PM EDT on 01/12/2025 with Jerome Etienne. The findings were acknowledged and understood.
--- NOTE | 2025-01-12 13:24 | [facility]H.EDGENADL ---
Discharge Plan Disposition Patient Disposition: Xfer Short-Term Hosp Chief Complaint: Weakness Prescriptions Prescriptions: No Action prednisone 20 mg tablet 20 mg PO BID Qty: 14 0RF Rx Instructions: Take two tablets on days 1-4. Take one tablet daily on days 5-8. On days 9-12 take one half tablet. pravastatin 40 mg tablet 40 mg PO HS 90 Days Patient Comments: levothyroxine 100 mcg tablet 100 mcg PO DAILY 90 Days Patient Comments: aspirin [Adult Low Dose Aspirin] 81 mg tablet,delayed release (DR/EC) 81 mg PO HS cyanocobalamin (vitamin B-12) 1,000 mcg capsule 1,000 mcg PO DAILY irbesartan 300 mg tablet 300 mg PO DAILY Patient Comments: TAKE 1 TABLET BY MOUTH ONCE DAILY nitroglycerin 0.4 mg tablet, sublingual 0.4 mg sublingual Q5M PRN (Reason: chest pain) Qty: 25 0RF Rx Instructions: do not exceed 3 doses per episode benzonatate 100 mg capsule 100 mg PO TID PRN (Reason: cough) Qty: 30 0RF guaifenesin [Mucinex] 600 mg tablet extended release 12hr 600 mg PO Q12H PRN (Reason: congestion) Qty: 10 0RF furosemide 80 mg tablet 80 mg PO DAILY 3 Days Qty: 3 0RF furosemide 40 mg tablet 40 mg PO DAILY Qty: 90 3RF potassium chloride 20 mEq tablet extended release 20 meq PO DAILY Qty: 30 5RF levocetirizine 5 mg tablet See Rx Instructions .ROUTE .COMPLEX Qty: 90 3RF Dose Instruction: Take 1 tablet by mouth once daily Rx Instructions: Take 1 tablet by mouth once daily carvedilol [Coreg] 6.25 mg tablet 6.25 mg PO BID Qty: 60 11RF Rx Instructions: must administer with a meal/food oxybutynin chloride 15 mg tablet extended release 24hr 15 mg PO DAILY Qty: 30 2RF dextromethorphan HBr 20 mg/15 mL solution 20 mg PO .Q8 PRN (Reason: cough) Qty: 118 0RF Referrals Follow up/Referrals: Elliott Mckinley DO [Primary Care Provider] - See instructions Clinical Impressions Clinical Impression: Swelling of both lower extremities, Shortness of breath, Pulmonary embolism, Mass of pancreas, Ascites, Superior mesenteric vein thrombosis, Portal vein thrombosis Print Language Print Language: Uzbek Discharge ED Provider: Jerome Etienne General Adult HPI <Jerome Etienne MD - Last Filed: 01/12/25 15:50> General Chief complaint: Weakness Stated complaint: per Dr. Green. Leg swelling, trimmers, weakness Time Seen by Provider: 01/12/25 13:15 Mode of Arrival: Ambulatory Source of Information: Patient and Spouse Limitations: No Limitations History of Present Illness HPI narrative: This is an 84-year-old male with a past medical history of CAD status post KELLEN in 2006 and CABG in 2001 on aspirin (previously on Xarelto however discontinued in 2023 due to anemia), hypertension, hyperlipidemia, hepatic abscess in 2023. States that he has been having worsening shortness of breath and lower extremity swelling for the last several weeks. Has been taking his fluid pills without significant improvement. Was instructed to present to the emergency department by PCP yesterday. Denies any chest pain. Reports chronic cough. Denies fever. Related Data Home Medications ?Medication ?Instructions ?Recorded ?Confirmed aspirin 81 mg tablet,delayed 81 mg PO HS heart health 12/28/17 01/12/25 release (Adult Low Dose Aspirin) levothyroxine 100 mcg tablet 100 mcg PO DAILY hypothyroidism 90 12/28/17 01/12/25 days pravastatin 40 mg tablet 40 mg PO HS Cholesterol 90 days 12/28/17 01/12/25 cyanocobalamin (vitamin B-12) 1,000 mcg PO DAILY Supplement 02/13/23 01/12/25 1,000 mcg capsule irbesartan 300 mg tablet 300 mg PO DAILY 10/23/24 01/12/25 Previous Rx's ?Medication ?Instructions ?Recorded potassium chloride 20 mEq 20 meq PO DAILY #30 tabs 09/15/23 tablet,extended release levocetirizine 5 mg tablet See Rx Instructions .Route 05/30/24 .COMPLEX #90 tabs carvedilol 6.25 mg tablet (Coreg) 6.25 mg PO BID #60 tabs 10/17/24 nitroglycerin 0.4 mg sublingual 0.4 mg sublingual Q5M PRN chest 10/23/24 tablet pain #25 tabs oxybutynin chloride 15 mg 15 mg PO DAILY #30 tabs 12/18/24 tablet,extended release 24 hr dextromethorphan HBr 20 mg/15 mL 20 mg (15 mL) PO .Q8 PRN cough 12/24/24 oral solution #118 mL benzonatate 100 mg capsule 100 mg PO TID PRN cough #30 caps 12/29/24 guaifenesin 600 mg tablet, 600 mg PO Q12H PRN congestion #10 12/29/24 extended release 12 hr (Mucinex) tabs prednisone 20 mg tablet 20 mg PO BID #14 tabs 01/03/25 furosemide 40 mg tablet 40 mg PO DAILY #90 tabs 01/09/25 furosemide 80 mg tablet 80 mg PO DAILY 3 days #3 tabs 01/09/25 Allergies Allergy/AdvReac Type Severity Reaction Status Date / Time cephalexin Allergy Unknown I-RASH Verified 01/12/25 13:34 PFS <Jerome Etienne MD - Last Filed: 01/12/25 15:50> [facility] Disclaimer: The information contained in this section may have been updated after the patient was seen, as this information can be updated by other users. Medical History Bronchitis Sinusitis SNHL (sensorineural hearing loss) mild to severe, predominantly SNHL, worse left, Asymmetry <1KHZ dizziness per Audiometric Dizziness History of left heart catheterization Hard of hearing Facet arthropathy, cervical Cervical disc disease Colon, diverticulosis Colon polyps HTN (hypertension), benign GERD (gastroesophageal reflux disease) CKD (chronic kidney disease) stage 3, GFR 30-59 ml/min Chest pain at rest CAD (coronary artery disease) E. coli UTI UTI (urinary tract infection) Severe sepsis Right middle lobe pneumonia Hyperlipidemia Surgical History History of cardiac cath History of cholecystectomy History of coronary artery stent placement History of colonoscopy Hx of myringotomy History of coronary artery bypass graft Family History Other Heart attack Hypertension Social History Smoking Status: Never smoker alcohol intake: never counseling provided: none substance use type: denies use current occupational status: retired Travel in the last 8 weeks: Inside the [place] household members: spouse housing: house caffeine: Yes Have you lived/traveled outside [place] in past 30 days?: No Contact w/someone who lives/traveled outside [place] past 30 days?: No Exposure to someone with infectious disease in past 14 days?: No Do you have a fever (greater than 100.4 F or 38 C)?: No Have you tested positive for COVID-19: No Exposed to someone with COVID-19 in past 14 days?: No Do you have a sore throat?: No Do you have a cough?: No Do you have any weakness?: No Do you have any diarrhea?: No Are you experiencing any unusual bleeding?: No Do you have any muscle aches/pain?: No Do you have any abdominal pain?: No Are you experiencing loss of taste or smell?: No Other Medical History Have you received the Flu Vaccine for this season: No Have you received the Pneumonia Vaccine: No <Jerome Etienne MD - Last Filed: 01/12/25 15:50> ROS Obtained: Yes All systems reviewed & no additional complaints except as documented Physical Exam <Jerome Etienne MD - Last Filed: 01/12/25 15:50> General General appearance: alert and in no apparent distress Eye Eye exam: Present normal appearance, PERRL and EOMI Respiratory Respiratory exam: Present normal lung sounds bilaterally; Absent respiratory distress Cardiovascular Cardiovascular exam: Present regular rate and normal rhythm Abdominal Exam Abdominal exam: Present soft, distention and tenderness (Diffuse); Absent guarding or rebound Extremities Exam Extremities exam: Present edema (Bilateral, symmetric, 2+) Neurological Exam Neurological exam: Present alert and oriented X3 Skin Skin exam: Present warm and dry Medical Decision Making <Jerome Etienne MD - Last Filed: 01/12/25 15:50> Medical Records Medical records reviewed: Yes I reviewed the patient's medical records. Screening: Per USPSTF and CDC recommendations, given the prevalence of disease in our region, it is our hospital?s policy to screen for HIV and viral Hepatitis for all patients aged 18 and over and those with ongoing risk factors. MR Comment: Cardiology clinic visit note from 01/09/2025 notable for patient's past medical history as noted above. Patient also had a cardiac cath on 10/21/2024. Angina noted to be likely from microvascular ischemia. Do not see any recent echocardiogram. Patient was instructed to take Lasix 80 mg once daily for 3 days and then reduce back to 40 mg. Amado Plasencia Pt receiving controlled substance: No Vital Signs: 01/12/25 13:20 01/12/25 13:25 01/12/25 13:30 Temperature 98.2 F Temperature Source Oral Pulse Rate 67 Pulse Rate [Radial] 67 68 Respiratory Rate 20 Blood Pressure 147/63 H Blood Pressure [R Arm] 147/63 H Blood Pressure Mean Blood Pressure Mean [R Arm] 91 Blood Pressure Source [R Arm] Automatic Cuff Blood Pressure Position [R Arm] Sitting 02 Sat by Pulse Oximetry 98 93 L Oxygen Delivery Method Room Air Room Air 01/12/25 13:30 01/12/25 13:30 01/12/25 14:00 Temperature Temperature Source Pulse Rate 66 62 Pulse Rate [Radial] Respiratory Rate 20 13 14 Blood Pressure 136/63 149/68 H Blood Pressure [R Arm] Blood Pressure Mean Blood Pressure Mean [R Arm] Blood Pressure Source [R Arm] Blood Pressure Position [R Arm] 02 Sat by Pulse Oximetry 93 L 98 99 Oxygen Delivery Method Room Air Room Air 01/12/25 15:00 01/12/25 15:30 01/12/25 15:58 Temperature Temperature Source Pulse Rate 63 58 L Pulse Rate [Radial] Respiratory Rate 13 17 15 Blood Pressure 164/72 H 168/68 H Blood Pressure [R Arm] Blood Pressure Mean Blood Pressure Mean [R Arm] Blood Pressure Source [R Arm] Blood Pressure Position [R Arm] 02 Sat by Pulse Oximetry 96 96 95 Oxygen Delivery Method Room Air Room Air Room Air 01/12/25 16:00 01/12/25 16:30 01/12/25 17:00 Temperature Temperature Source Pulse Rate 54 L 56 L 58 L Pulse Rate [Radial] Respiratory Rate 14 14 16 Blood Pressure 170/71 H 150/69 H 158/63 H Blood Pressure [R Arm] Blood Pressure Mean Blood Pressure Mean [R Arm] Blood Pressure Source [R Arm] Blood Pressure Position [R Arm] 02 Sat by Pulse Oximetry 99 99 99 Oxygen Delivery Method Room Air Room Air Room Air 01/12/25 17:30 01/12/25 18:00 01/12/25 18:30 Temperature Temperature Source Pulse Rate 63 64 58 L Pulse Rate [Radial] Respiratory Rate 13 17 17 Blood Pressure 142/61 H 138/61 146/60 H Blood Pressure [R Arm] Blood Pressure Mean Blood Pressure Mean [R Arm] Blood Pressure Source [R Arm] Blood Pressure Position [R Arm] 02 Sat by Pulse Oximetry 100 98 98 Oxygen Delivery Method Room Air Room Air Room Air 01/12/25 18:45 01/12/25 19:00 01/12/25 19:00 Temperature Temperature Source Pulse Rate 56 L 60 Pulse Rate [Radial] Respiratory Rate 15 12 Blood Pressure 155/62 H Blood Pressure [R Arm] Blood Pressure Mean 93 Blood Pressure Mean [R Arm] Blood Pressure Source [R Arm] Blood Pressure Position [R Arm] 02 Sat by Pulse Oximetry 98 98 Oxygen Delivery Method Lab Data Lab Results 01/12/25 13:23: Urine Color Yellow, Urine Appearance Clear, Urine pH 6.0, Ur Specific [place] 1.010, Urine Protein Negative, Urine Glucose (UA) 3+, Urine Ketones Negative, Urine Blood Negative, Urine Nitrate Negative, Urine Bilirubin Negative, Urine Urobilinogen 1.0, Ur Leukocyte Esterase Negative, Urine RBC None, Urine WBC None, Ur Squamous Epith Cells None, Urine Bacteria None 01/12/25 13:29: WBC 11.6 H, RBC 3.22 L, Hgb 11.2 L, Hct 33.6 L, MCV 104.3 H, MCH 34.8 H, MCHC 33.3, RDW 15.8, Plt Count 77 L, MPV 11.5 H, Neut % (Auto) 78.2, Lymph % (Auto) 8.0 L, [place] % (Auto) 8.7, Eos % (Auto) 4.6, Baso % (Auto) 0.1, Neut # (Auto) 9.1 H, Lymph # (Auto) 0.9, [place] # (Auto) 1.0, Eos # (Auto) 0.5 H, Baso # (Auto) 0.0, APTT 25.9 L, Sodium 135 L, Potassium 3.7, Chloride 98, Carbon Dioxide 29, Anion Gap 11.7, BUN 37 H, Creatinine 1.30 H, Estimated Creat Clear 54, Estimated GFR 53 L, Est GFR ( Amer) 64, Glucose 580 H*, Hemoglobin A1c 8.1 H, Calcium 8.4, Total Bilirubin 2.1 H, AST 37, ALT 56, Alkaline Phosphatase 183 H, Troponin I < 0.01, NT-Pro-B Natriuret Pep 417, Total Protein 6.1 L, Albumin 3.0 L, Globulin 3.1, Albumin/Globulin Ratio 1.0 L, Lipase 266, Acetone Level None detected, HCV Ab JAYLEEN w/Rflx PCR Qn Negative, HIV Ag/Ab Combo Qual Negative 01/12/25 14:12: VBG pH 7.44 H, VBG pCO2 42.0, VBG pO2 26.7 L, VBG HCO3 27.7, VBG Total CO2 29.0 H, VBG O2 Saturation 51.7, VBG Base Excess 3.5 H, VBG Lactic Acid 2.5 H 01/12/25 17:18: APTT > 139.0 H*, Troponin I < 0.01 01/12/25 13:29 01/12/25 13:29 Orders (Tests/Meds): ED MEDICATIONS Generic Name Dose Route Start Last Admin Trade Name Freq PRN Reason Stop Dose Admin Heparin Sodium/Dextrose 500 mls @ 27.215 mls/hr 01/12/25 15:45 01/12/25 16:18 Heparin 25,000 Units In D5w 500ml Premix IV 02/11/25 15:44 32.658 mls/hr .[id number] RENNY Administration 15 UNITS/KG/HR Miscellaneous 1 each 01/12/25 15:15 01/12/25 16:19 Heparin Drip Consult NOTAPPLIC 02/11/25 15:14 1 each CONSULT PHARMACY RENNY Administration Discontinued Medications Generic Name Dose Route Start Last Admin Trade Name Freq PRN Reason Stop Dose Admin Heparin Sodium (Porcine) 7,000 unit 01/12/25 15:10 01/12/25 16:18 Heparin Sodium 5,000 Unit/Ml Vial IV 01/12/25 15:11 7,000 unit ONCE ONE Administration Insulin Human Regular 10 unit 01/12/25 16:27 01/12/25 16:36 Insulin Human Regular 100 Units/Ml 10ml Vial IV 01/12/25 16:28 10 unit ONCE ONE Administration Iopamidol 70 ml 01/12/25 14:21 01/12/25 14:23 Iopamidol-370 (76%);100ml Bottle IV 01/12/25 14:22 70 ml ONCE ONE Administration Potassium Chloride 60 meq 01/12/25 16:27 01/12/25 16:36 Potassium Chloride 20meq Tab PO 01/12/25 16:28 60 meq ONCE ONE Administration Sodium Chloride 10 ml 01/12/25 14:21 01/12/25 14:22 Sodium Chloride 0.9% 10ml Syr (Rad Only) IV 01/12/25 14:22 10 ml ONCE ONE Administration Sodium Chloride 50 ml 01/12/25 14:21 01/12/25 14:22 0.9 % Sodium Chloride 50 Ml Vial IV 01/12/25 14:22 50 ml ONCE ONE Administration ORDERS Category Date Time Status CT abdomen pelvis w con Stat Cat Scan 01/12/25 13:23 Completed CTA Chest [CT angio chest PE protocol] Stat Cat Scan 01/12/25 13:23 Completed Chest XR -- portable [XR chest portable] Stat Exams 01/12/25 13:22 Completed POCUS Point of Care (ER Only) Stat Exams 01/12/25 13:22 Taken Acetone, Serum (Rapid) Stat Lab 01/12/25 13:29 Completed BNP [NT Pro Brain Natriuretic Pep.] Stat Lab 01/12/25 13:29 Completed CBC w/Auto Diff [Complete Blood Count Auto Diff] Stat Lab 01/12/25 13:29 Completed CMP [Comprehensive Metabolic Panel] Stat Lab 01/12/25 13:29 Completed HIV Combo Stat Lab 01/12/25 13:29 Completed Hemoglobin A1C Stat Lab 01/12/25 13:29 Completed Hepatitis C Ab Qual. W/ RFX Stat Lab 01/12/25 13:29 Completed Lipase Stat Lab 01/12/25 13:29 Completed PTT Heparin (inpatient only) Stat Lab 01/12/25 13:29 Completed PTT Heparin (inpatient only) Stat Lab 01/12/25 17:18 Completed PTT Heparin (inpatient only) Stat Lab 01/12/25 19:20 Ordered Troponin I Q3H Lab 01/12/25 17:18 Completed Troponin I Q3H Lab 01/12/25 19:30 Ordered Troponin I Stat Lab 01/12/25 13:29 Completed Urinalysis and Microscopic Stat Lab 01/12/25 13:23 Completed VBG [Venous Blood Gas] Stat RT 01/12/25 14:12 Completed ECG Data Tracing #1: I reviewed this ECG and interpreted as documented below: Normal sinus rhythm at a rate of 67, QTc 439, normal axis, no STEMI Medical Decision Narrative: In summary, this 84-year-old male with a past medical history of CAD status post KELLEN in 2006 and CABG in 2001 on aspirin (previously on Xarelto however discontinued in 2023 due to anemia), hypertension, hyperlipidemia, hepatic abscess in 2023 presents to the emergency department today with shortness of breath and lower extremity swelling. On initial evaluation patient is afebrile, hemodynamically stable, satting appropriately on room air, no acute distress. He did have diffuse abdominal tenderness. Differential diagnosis includes but is not limited to CHF, ACS, pulmonary embolism, pneumonia, hepatic abscess, AAA, ZABRINA. Based on these concerns, I ordered CBC, CMP, BNP, troponin, EKG, chest x-ray, CT PE, CT abdomen pelvis with IV contrast. ECG personally interpreted as noted above. Labs personally reviewed demonstrate white blood cell count of 11.6, thrombocytopenia with a platelet count of 77, hemoglobin of 11.2 consistent with chronic anemia, Glucose of 580. Added on acetone and VBG which were unremarkable with the exception of lactate of 2.5. UA revealed no evidence of UTI. Bilirubin of 2.1. XR personally interpreted demonstrates hazy opacities in the right upper lobe. CT imaging personally interpreted demonstrates bilateral segmental PE with RV to LV ratio of 1:1 (borderline for right heart strain). 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 [id number] ultrasound revealed mildly diminished gross LVEF. 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 At the time of shift change, care was handed off to Dr. Clarke pending discussion with for transfer. See ultimate dispo below: <Cleve Clarke MD - Last Filed: 01/12/25 19:28> Vital Signs: 01/12/25 13:20 01/12/25 13:25 01/12/25 13:30 Temperature 98.2 F Temperature Source Oral Pulse Rate 67 Pulse Rate [Radial] 67 68 Respiratory Rate 20 Blood Pressure 147/63 H Blood Pressure [R Arm] 147/63 H Blood Pressure Mean Blood Pressure Mean [R Arm] 91 Blood Pressure Source [R Arm] Automatic Cuff Blood Pressure Position [R Arm] Sitting 02 Sat by Pulse Oximetry 98 93 L Oxygen Delivery Method Room Air Room Air 01/12/25 13:30 01/12/25 13:30 01/12/25 14:00 Temperature Temperature Source Pulse Rate 66 62 Pulse Rate [Radial] Respiratory Rate 20 13 14 Blood Pressure 136/63 149/68 H Blood Pressure [R Arm] Blood Pressure Mean Blood Pressure Mean [R Arm] Blood Pressure Source [R Arm] Blood Pressure Position [R Arm] 02 Sat by Pulse Oximetry 93 L 98 99 Oxygen Delivery Method Room Air Room Air 01/12/25 15:00 01/12/25 15:30 01/12/25 15:58 Temperature Temperature Source Pulse Rate 63 58 L Pulse Rate [Radial] Respiratory Rate 13 17 15 Blood Pressure 164/72 H 168/68 H Blood Pressure [R Arm] Blood Pressure Mean Blood Pressure Mean [R Arm] Blood Pressure Source [R Arm] Blood Pressure Position [R Arm] 02 Sat by Pulse Oximetry 96 96 95 Oxygen Delivery Method Room Air Room Air Room Air 01/12/25 16:00 01/12/25 16:30 01/12/25 17:00 Temperature Temperature Source Pulse Rate 54 L 56 L 58 L Pulse Rate [Radial] Respiratory Rate 14 14 16 Blood Pressure 170/71 H 150/69 H 158/63 H Blood Pressure [R Arm] Blood Pressure Mean Blood Pressure Mean [R Arm] Blood Pressure Source [R Arm] Blood Pressure Position [R Arm] 02 Sat by Pulse Oximetry 99 99 99 Oxygen Delivery Method Room Air Room Air Room Air 01/12/25 17:30 01/12/25 18:00 01/12/25 18:30 Temperature Temperature Source Pulse Rate 63 64 58 L Pulse Rate [Radial] Respiratory Rate 13 17 17 Blood Pressure 142/61 H 138/61 146/60 H Blood Pressure [R Arm] Blood Pressure Mean Blood Pressure Mean [R Arm] Blood Pressure Source [R Arm] Blood Pressure Position [R Arm] 02 Sat by Pulse Oximetry 100 98 98 Oxygen Delivery Method Room Air Room Air Room Air 01/12/25 18:45 01/12/25 19:00 01/12/25 19:00 Temperature Temperature Source Pulse Rate 56 L 60 Pulse Rate [Radial] Respiratory Rate 15 12 Blood Pressure 155/62 H Blood Pressure [R Arm] Blood Pressure Mean 93 Blood Pressure Mean [R Arm] Blood Pressure Source [R Arm] Blood Pressure Position [R Arm] 02 Sat by Pulse Oximetry 98 98 Oxygen Delivery Method Lab Data Lab Results 01/12/25 13:23: Urine Color Yellow, Urine Appearance Clear, Urine pH 6.0, Ur Specific [place] 1.010, Urine Protein Negative, Urine Glucose (UA) 3+, Urine Ketones Negative, Urine Blood Negative, Urine Nitrate Negative, Urine Bilirubin Negative, Urine Urobilinogen 1.0, Ur Leukocyte Esterase Negative, Urine RBC None, Urine WBC None, Ur Squamous Epith Cells None, Urine Bacteria None 01/12/25 13:29: WBC 11.6 H, RBC 3.22 L, Hgb 11.2 L, Hct 33.6 L, MCV 104.3 H, MCH 34.8 H, MCHC 33.3, RDW 15.8, Plt Count 77 L, MPV 11.5 H, Neut % (Auto) 78.2, Lymph % (Auto) 8.0 L, [place] % (Auto) 8.7, Eos % (Auto) 4.6, Baso % (Auto) 0.1, Neut # (Auto) 9.1 H, Lymph # (Auto) 0.9, [place] # (Auto) 1.0, Eos # (Auto) 0.5 H, Baso # (Auto) 0.0, APTT 25.9 L, Sodium 135 L, Potassium 3.7, Chloride 98, Carbon Dioxide 29, Anion Gap 11.7, BUN 37 H, Creatinine 1.30 H, Estimated Creat Clear 54, Estimated GFR 53 L, Est GFR ( Amer) 64, Glucose 580 H*, Hemoglobin A1c 8.1 H, Calcium 8.4, Total Bilirubin 2.1 H, AST 37, ALT 56, Alkaline Phosphatase 183 H, Troponin I < 0.01, NT-Pro-B Natriuret Pep 417, Total Protein 6.1 L, Albumin 3.0 L, Globulin 3.1, Albumin/Globulin Ratio 1.0 L, Lipase 266, Acetone Level None detected, HCV Ab JAYLEEN w/Rflx PCR Qn Negative, HIV Ag/Ab Combo Qual Negative 01/12/25 14:12: VBG pH 7.44 H, VBG pCO2 42.0, VBG pO2 26.7 L, VBG HCO3 27.7, VBG Total CO2 29.0 H, VBG O2 Saturation 51.7, VBG Base Excess 3.5 H, VBG Lactic Acid 2.5 H 01/12/25 17:18: APTT > 139.0 H*, Troponin I < 0.01 Orders (Tests/Meds): ED MEDICATIONS Generic Name Dose Route Start Last Admin Trade Name Freq PRN Reason Stop Dose Admin Heparin Sodium/Dextrose 500 mls @ 27.215 mls/hr 01/12/25 15:45 01/12/25 16:18 Heparin 25,000 Units In D5w 500ml Premix IV 02/11/25 15:44 32.658 mls/hr .[id number] RENNY Administration 15 UNITS/KG/HR Miscellaneous 1 each 01/12/25 15:15 01/12/25 16:19 Heparin Drip Consult NOTAPPLIC 02/11/25 15:14 1 each CONSULT PHARMACY RENNY Administration Discontinued Medications Generic Name Dose Route Start Last Admin Trade Name Freq PRN Reason Stop Dose Admin Heparin Sodium (Porcine) 7,000 unit 01/12/25 15:10 01/12/25 16:18 Heparin Sodium 5,000 Unit/Ml Vial IV 01/12/25 15:11 7,000 unit ONCE ONE Administration Insulin Human Regular 10 unit 01/12/25 16:27 01/12/25 16:36 Insulin Human Regular 100 Units/Ml 10ml Vial IV 01/12/25 16:28 10 unit ONCE ONE Administration Iopamidol 70 ml 01/12/25 14:21 01/12/25 14:23 Iopamidol-370 (76%);100ml Bottle IV 01/12/25 14:22 70 ml ONCE ONE Administration Potassium Chloride 60 meq 01/12/25 16:27 01/12/25 16:36 Potassium Chloride 20meq Tab PO 01/12/25 16:28 60 meq ONCE ONE Administration Sodium Chloride 10 ml 01/12/25 14:21 01/12/25 14:22 Sodium Chloride 0.9% 10ml Syr (Rad Only) IV 01/12/25 14:22 10 ml ONCE ONE Administration Sodium Chloride 50 ml 01/12/25 14:21 01/12/25 14:22 0.9 % Sodium Chloride 50 Ml Vial IV 01/12/25 14:22 50 ml ONCE ONE Administration ORDERS Category Date Time Status CT abdomen pelvis w con Stat Cat Scan 01/12/25 13:23 Completed CTA Chest [CT angio chest PE protocol] Stat Cat Scan 01/12/25 13:23 Completed Chest XR -- portable [XR chest portable] Stat Exams 01/12/25 13:22 Completed POCUS Point of Care (ER Only) Stat Exams 01/12/25 13:22 Taken Acetone, Serum (Rapid) Stat Lab 01/12/25 13:29 Completed BNP [NT Pro Brain Natriuretic Pep.] Stat Lab 01/12/25 13:29 Completed CBC w/Auto Diff [Complete Blood Count Auto Diff] Stat Lab 01/12/25 13:29 Completed CMP [Comprehensive Metabolic Panel] Stat Lab 01/12/25 13:29 Completed HIV Combo Stat Lab 01/12/25 13:29 Completed Hemoglobin A1C Stat Lab 01/12/25 13:29 Completed Hepatitis C Ab Qual. W/ RFX Stat Lab 01/12/25 13:29 Completed Lipase Stat Lab 01/12/25 13:29 Completed PTT Heparin (inpatient only) Stat Lab 01/12/25 13:29 Completed PTT Heparin (inpatient only) Stat Lab 01/12/25 17:18 Completed PTT Heparin (inpatient only) Stat Lab 01/12/25 19:20 Ordered Troponin I Q3H Lab 01/12/25 17:18 Completed Troponin I Q3H Lab 01/12/25 19:30 Ordered Troponin I Stat Lab 01/12/25 13:29 Completed Urinalysis and Microscopic Stat Lab 01/12/25 13:23 Completed VBG [Venous Blood Gas] Stat RT 01/12/25 14:12 Completed Medical Decision Narrative: In summary, this 84-year-old male with a past medical history of CAD status post KELLEN in 2006 and CABG in 2001 on aspirin (previously on Xarelto however discontinued in 2023 due to anemia), hypertension, hyperlipidemia, hepatic abscess in 2023 presents to the emergency department today with shortness of breath and lower extremity swelling. On initial evaluation patient is afebrile, hemodynamically stable, satting appropriately on room air, no acute distress. He did have diffuse abdominal tenderness. Differential diagnosis includes but is not limited to CHF, ACS, pulmonary embolism, pneumonia, hepatic abscess, AAA, ZABRINA. Based on these concerns, I ordered CBC, CMP, BNP, troponin, EKG, chest x-ray, CT PE, CT abdomen pelvis with IV contrast. ECG personally interpreted as noted above. Labs personally reviewed demonstrate white blood cell count of 11.6, thrombocytopenia with a platelet count of 77, hemoglobin of 11.2 consistent with chronic anemia, Glucose of 580. Added on acetone and VBG which were unremarkable with the exception of lactate of 2.5. UA revealed no evidence of UTI. Bilirubin of 2.1. XR personally interpreted demonstrates hazy opacities in the right upper lobe. CT imaging personally interpreted demonstrates bilateral segmental PE with RV to LV ratio of 1:1 (borderline for right heart strain). 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 [id number] ultrasound revealed mildly diminished gross LVEF. 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 At the time of shift change, care was handed off to Dr. Clarke pending discussion with for transfer. See ultimate dispo below: Vince: I assumed primary responsibility for this patient after signout from previous physician. Patient was placed in observation beginning at 3 PM in order to give heparin bolus and drip, insulin, continue monitoring, reach out to neighboring hospitals for transfer and determine need for admission versus transfer. The patient was provided serial exams, cardiac monitoring while awaiting results. On my initial evaluation, patient has no acute complaints. Patient on continuous cardiac monitoring and pulse oximetry upper 99% on room air. Heart rate 58, blood pressure 170/71. Patient states he feels generally well, but the reason he came in today was because his legs were feeling heavy, swollen, and he is having difficulty ambulating secondary to swelling and fatigue. I independently interpreted patient's workup, patient has mild leukocytosis at 11.6 and thrombocytopenia 77,000, which appears to be new. VBG with lactate of 2.5, nonactionable pH, CO2, or bicarb. Patient's chemistry with ZABRINA creatinine 1.3 up from normal baseline. Patient's bilirubin elevated 2.1 alkaline phosphatase elevated at 183. Troponin and BNP negative. Lipase negative. Patient has no history of diabetes, however glucose is 580, A1c was added and initial A1c 8.1. I feel the benefit of heparin bolus and drip outweighs the risks of bleeding, especially given clinical concern and radiographic concern for right heart strain with PEs, and likely swelling and ascites secondary to portal pressures being elevated. Patient was given oral potassium 60 mill equivalents as well as 10 units IV insulin 0.1 mg/kg. Prior to this, patient's glucose right around 480, repeat glucose after insulin 580, curiously. Patient also given 40 mg IV Lasix for significant swelling. After multiple hours, able to speak to [facility], they stated it would be approximately 7 to 8 days before they were able to get patient transferred. I do not feel this is appropriate. I called [facility], they graciously accepted and have a patient bed ready. Because patient high risk for clinical decompensation if discharged, deemed appropriate for transfer and inpatient admission. Results were relayed to patient who voiced understanding and patient was agreeable to transfer, inpatient admission, and management. Patient was graciously accepted and transferred to for further definitive management, under Dr. Dumont. Total time in observation 4.5 hours. Critical Care <Jerome Etienne MD - Last Filed: 01/12/25 15:50> Critical Care Time Critical Care Time: No <Cleve Clarke MD - Last Filed: 01/12/25 19:28> Critical Care Time Critical Care Time: Yes (cardiac, endocrine, hematologic) Attestation: On 01/12/25, the high probability of a clinically significant, sudden or life threatening deterioration of the following system(s) required my full and direct attention, intervention and personal management. The time I documented below is in addition to time spent performing reported procedures but includes the following listed in this critical care notation. Total Time Total Critical Care Time: 60
--- NOTE | 2025-01-12 13:26 | ECG_ITS ---
APPROVED REPORT Exam: Resting ECG HR:67 bpm ECG Measurements Heart Rate 67 AXES CO 167 P 0 QRSd 105 QRS 10 QT 423 T 21 QTc 439 Conclusion SINUS RHYTHM NORMAL ECG UNCONFIRMED REPORT Electronically signed by : Jerome Etienne, 01/12/2025 15:24:36
--- NOTE | 2025-01-12 13:36 | PC.NURSE ---
Dr. Etienne at bedside performing bedside ultrasound.
[2025-01-12 13:40] LABS: Basophils % 0.1 % (0.1-2.0); Eosinophils # 0.5 K/mm3 (0.0-0.4); Eosinophils % 4.6 % (0.1-12.0); Hematocrit 33.6 % (42.0-52.0); Hemoglobin 11.2 g/dL (14.1-18.0); Lymphocytes # 0.9 K/mm3 (0.7-4.5); Mean Corpuscular HGB Conc 33.3 g/dL (31.8-35.4); Mean Corpuscular Hemoglobin 34.8 pg (27.0-31.2); Mean Corpuscular Volume 104.3 fl (80-94); Mean Platelet Volume 11.5 fl (7.4-10.4); Monocytes % 8.7 % (1.7-9.3); Neutrophils # 9.1 K/mm3 (1.8-7.8); Neutrophils % 78.2 % (37.0-80.0); Nucleated Red Blood Cells # 0 10^3/uL; Nucleated Red Blood Cells % 0 %; Platelet Count 77 K/mm3 (142-424); Red Blood Count 3.22 M/mm3 (4.60-6.20); Red Cell Distribution Width 15.8 % (11.5-17.5); Red Cell Distribution Width-SD 59.6 fL; White Blood Count 11.6 K/mm3 (4.8-10.8)
[2025-01-12 13:44] LABS: Chloride 98 mmol/L (98-107); Sodium 135 mmol/L (136-145)
[2025-01-12 13:45] LABS: Potassium 3.7 mmoL/L (3.5-5.1)
[2025-01-12 13:47] LABS: Alanine Aminotransferase 56 U/L (12-78); Alkaline Phosphatase 183 U/L (38-126); Anion Gap 11.7 mEq/L (5-15); Aspartate Amino Transferase 37 U/L (17-59); Bilirubin,Total 2.1 mg/dl (0.2-1.3); Blood Urea Nitrogen 37 mg/dl (9-20); Calcium 8.4 mg/dl (8.4-10.2); Carbon Dioxide 29 mmol/L (22.0-30.0); Creatinine Clearance Estimated 54 mL/min (50-200); Estimated Glomerular Filt Rate 53 ml/min (>60); GFR (African American) 64 ML/MIN (>60); Globulin 3.1 g/dL (1.3-3.2); Lipase 266 U/L (23-300); Total Protein,Serum 6.1 g/dl (6.3-8.2)
[2025-01-12 13:57] LABS: NT Pro Brain Natriuretic Pep. 417 pg/mL (0-450)
[2025-01-12 14:01] LABS: Troponin I < 0.01 ng/ml (0.00-0.034)
[2025-01-12 14:01] LABS: Microscopic, Urine URINE MICROSCOPIC (MICROSCOPIC)
[2025-01-12 14:02] LABS: Glucose 580 mg/dl (74-100)
[2025-01-12 14:03] LABS: Appearance,Urine CLEAR (Clear); Bilirubin,Urine Negative (Negative); Blood, Urine Negative (Negative); Color,Urine YELLOW (Yellow); Glucose,Urine (UA) 3+ (Negative); Ketones,Urine Negative (Negative); Leukocyte Esterase,Urine Negative (Negative); Nitrate,Urine Negative (Negative); Protein,Urine Negative (Negative)
--- NOTE | 2025-01-12 14:12 | PC.NURSE ---
VBG drawn from IV in L AC. Tubed to lab. Lab and RT called and notified.
--- NOTE | 2025-01-12 14:14 | PC.NURSE ---
pt gone to ct via stretcher
--- NOTE | 2025-01-12 14:18 | PC.NURSE ---
CBC, CMP, UA, and Troponin reviewed by RN at this time.
[2025-01-12 14:19] LABS: VBG Base Excess 3.5 mmol/L (-2.4-2.3); VBG HCO3 27.7 mmol/L (23-30); VBG Oxygen Saturation 51.7 % (50-70); VBG PH 7.44 mmol/L (7.31-7.41); VBG PO2 26.7 mmol/L (28-40)
[2025-01-12 14:20] LABS: Lactate Venous 2.5 mmol/L (0.4-2.0)
[2025-01-12 14:22] LABS: Acetone, Serum (Rapid) None Detected (None Detect)
[2025-01-12] MEDS: 0.9 % SODIUM CHLORIDE 50 ML VIAL IV (14:22)
[2025-01-12] MEDS: SODIUM CHLORIDE 0.9% 10ML SYR (RAD ONLY) 10 ML IV (14:22)
[2025-01-12] MEDS: IOPAMIDOL-370 (76%);100ML BOTTLE 70 ML IV (14:23)
[2025-01-12 14:37] LABS: HIV Combo NEGATIVE (Negative)
--- NOTE | 2025-01-12 14:37 | PC.NURSE ---
VBG and Acetone labs reviewed at this time by NATACHA.
--- NOTE | 2025-01-12 14:37 | PC.NURSE ---
Patient returned to room after CT scan. Connected to cardiac technician.
[2025-01-12 14:46] LABS: Hepatitis C Ab Qual. W/ RFX NEGATIVE (Negative)
--- NOTE | 2025-01-12 14:56 | PC.NURSE ---
DR CARLOS SPEAKING WITH [facility]
--- NOTE | 2025-01-12 14:59 | PC.NURSE ---
DR CARLOS AT BEDSIDE TO UPDATE PT AND FAMILY
--- NOTE | 2025-01-12 15:11 | PC.NURSE ---
Called for a patient transfer per Dr. Etienne. They said that they would call back as soon as they can. Images have been power shared.
--- NOTE | 2025-01-12 15:27 | PC.NURSE ---
Pending heparin bolus and gtt until PTT results.
--- NOTE | 2025-01-12 15:33 | PC.NURSE ---
placed purewick on pt
--- NOTE | 2025-01-12 15:37 | PC.NURSE ---
male purewick placed on pt
--- NOTE | 2025-01-12 15:56 | PC.NURSE ---
Jessica from lab called this RN with a critical result. Patient's PTT 25.9. This is the pre-heparin PTT, so this result is expected.
[2025-01-12 16:00] LABS: PTT Heparin (inpatient only) 25.9 Seconds (50-75)
[2025-01-12 16:16] LABS: Hemoglobin A1C 8.1 % (4.0-6.0)
[2025-01-12] MEDS: HEPARIN SODIUM 5,000 UNIT/ML VIAL 7000 UNIT IV (16:18)
[2025-01-12] MEDS: HEPARIN 25,000 UNITS/D5W 500 ML 32.658 UNIT IV (16:18)
[2025-01-12] MEDS: HEPARIN DRIP CONSULT 1 EACH NOTAPPLIC (16:19)
--- NOTE | 2025-01-12 16:28 | PC.NURSE ---
Heparin bolus and infusion initiated at 1615. Repeat PTT should be collected at 1715 per Heparin protocol.
--- NOTE | 2025-01-12 16:35 | PC.NURSE ---
called [facility] to see why we still haven't heard from there facility from first call out for transfer, they stated they had one more call in from of our then a [facility] would call and speak with about possible transfer
[2025-01-12] MEDS: INSULIN HUMAN REGULAR 100 UNITS/ML 10ML VIAL 10 UNIT IV (16:36)
[2025-01-12] MEDS: POTASSIUM CHLORIDE 20MEQ TAB 60 MEQ PO (16:36)
--- NOTE | 2025-01-12 17:23 | PC.NURSE ---
Troponin and repeat PTT obtained and sent to the lab. POC BG obtained at 513. Dr. Clarke made aware.
--- NOTE | 2025-01-12 17:24 | PC.NURSE ---
[facility]
--- NOTE | 2025-01-12 17:44 | PC.NURSE ---
called radiology and Huong is power sharing images to
--- NOTE | 2025-01-12 17:45 | PC.NURSE ---
Per Dr. Clarke, transfer provider stated the patient could be placed on a wait list with a wait of between 7-[address] Clarke then requested to consult [facility]. transfer center be called at this time.
--- NOTE | 2025-01-12 17:49 | PC.NURSE ---
Just called [facility] for patient transfer, they said they would call back as soon as they can.
--- NOTE | 2025-01-12 17:57 | PC.NURSE ---
I spoke with Cha at the transfer center. I provided the patient's HPI. Cha stated they would return the call for a provider-provider.
[2025-01-12 18:01] LABS: Troponin I < 0.01 ng/ml (0.00-0.034)
--- NOTE | 2025-01-12 18:14 | PC.NURSE ---
DR RODRIGUEZ SPEAKING WITH [facility]
[2025-01-12 18:16] LABS: PTT Heparin (inpatient only) > 139.0 Seconds (50-75)
--- NOTE | 2025-01-12 18:20 | PC.NURSE ---
Addendum entered by Elliott Mckoy RN 01/12/25 18:22: Unable to document titration in MAR. Medication decreased to 27.2 ml/hr. Sola Lindsey RN 2nd verification. Original Note: Received a call from pharmacy with a dosage adjustment for the patient's Heparin drip. Change documented in NOV.
[2025-01-12 18:21] LABS: Reflex Lactic Add Lactic Reflex
--- NOTE | 2025-01-12 19:07 | PC.NURSE ---
Just called [facility] About transfer, they said they would call back in about 15-20 minutes.
--- NOTE | 2025-01-12 19:08 | PC.NURSE ---
Report given to NATACHA Lizama. Care handed off at this time.
[2025-01-12] MEDS: FUROSEMIDE 40MG/4ML VIAL 40 MG IV (19:34)
--- NOTE | 2025-01-12 19:50 | PC.NURSE ---
THIS RN CONFIRMED HEPARIN ORDER ON NOV WITH PUMP IN PT ROOM. HEPARIN INFUSION GOING @ 27.2 ML/HR
[2025-01-12 20:26] LABS: PTT Heparin (inpatient only) > 139.0 Seconds (50-75)
--- NOTE | 2025-01-12 20:28 | PC.NURSE ---
TRN contacted [facility] for patient transport and spoke with Informed staff of patient transport to .
--- NOTE | 2025-01-12 20:30 | PC.NURSE ---
TRN spoke with Brad at [facility] pharmacy for heparin gtt titration adjustment to 12 un/hr. Medication changed on pump and verified with NATACHA Horner
[2025-01-12] MEDS: HEPARIN 25,000 UNITS/D5W 500 ML 21.772 UNIT IV (20:39)
== END 2025-01-12 20:57 | disposition short-term general hospital (02) ==
PROVIDERS: Emergency Medicine; Emergency Provider Student in an Organized Health Care Education/Training Program; PCP Internal Medicine
DX: I26.94 Multiple subsegmental thrombotic pulmonary emboli without acute cor pulmonale (principal); R22.43 Localized swelling, mass and lump, lower limb, bilateral; I81 Portal vein thrombosis; K55.069 Acute infarction of intestine, part and extent unspecified; K86.89 Other specified diseases of pancreas; R18.8 Other ascites; R73.9 Hyperglycemia, unspecified; Z11.59 Encounter for screening for other viral diseases; Z11.4 Encounter for screening for human immunodeficiency virus [HIV]
CPT/HCPCS: 71045; 71275; 74177; 80053; 81001; 82009; 82803; 83036; 83690; 83880; 84484; 85025; 85730; 86803; 87389; 93005; 96374; 96375; 96376; 99291; J1644; J1938; Q9967